=== PATIENT | female | born 1930 | race Caucasian/White ===

== ENCOUNTER 2019-05-07 22:57 | Inpatient (IN) ==
[2019-05-07] MEDS ORDERED: Amiodarone Premix 150 MG/100 ML BAG IVPB ONE ×2 (23:04→23:06)
[2019-05-07] MEDS ORDERED: Amiodarone Premix 360 MG/200 ML BAG IVC ONE (23:06)
[2019-05-07] MEDS ORDERED: *HR* FentaNYL (PF) 100 MCG/2 ML VIAL IVP ONE (23:25)
--- NOTE | 2019-05-07 23:25 | Emergency Department Note ---
Disposition Clinical Impression: Wide-complex tachycardia, Elevated troponin, Renal insufficiency Chest pain Qualifiers: Chest pain type: unspecified Qualified Code(s): R07.9 - Chest pain, unspecified Disposition: Admitted As Inpatient Condition: Fair Time of Disposition: 01:50 Arrhythmia/Palpitations HPI - General Stated Complaint: chest pain Time Seen by Provider: 05/07/19 23:05 Source: EMS Mode of arrival: EMS Limitations: age Nursing Notes Reviewed: Yes Vital Signs Reviewed: Yes - History of Present Illness HPI Narrative: 88-year-old female presents to the emergency department via EMS with reports of generalized pain. Patient is a poor historian and cannot provide additional history at this time. Her reports of EMS, patient's nephew called for squad as the patient was complaining of worsening pain or than usual that started today. No onset of time was reported. While in route EMS performed the EKG which appear to show atrial fibrillation as it was irregularly irregular and then a run of on sustained wide complex tachycardia. On arrival here the patient is crying in pain and cannot localize it. She states her neck hurts her chest hurts in her abdomen hurts. She denies any history of cardiac ischemic disease or irregular heart rhythms. She denies recent illness or shortness of breath. She states she does not take any anticoagulants other than Plavix. She has noted increase in swelling of her legs. Reportedly her nephew will be arriving shortly. - Related Data Home Medications Medication Instructions Recorded Confirmed Aspirin Enteric Coated [Aspirin EC] 81 mg PO DAILY 09/15/15 09/15/15 Calcium Carbonate/Vitamin D3 1 tab PO DAILY 09/15/15 09/15/15 [Calcium 600 + D Tablet] Clopidogrel Bisulfate [Clopidogrel] 75 mg PO QAM 09/15/15 09/15/15 Famotidine 20 mg PO BID 09/15/15 09/15/15 Furosemide 20 mg PO DAILY 09/15/15 09/15/15 Hydrocodone/Acetaminophen 1 tab PO TID 09/15/15 09/15/15 [Hydrocodone-Acetamin 5-325 mg] Levothyroxine [Synthroid] 125 mcg PO DAILY 09/15/15 09/15/15 Multivit-Min/FA/Lycopen/Lutein 1 tab PO DAILY 09/15/15 09/15/15 [Centrum Silver Tablet] Potassium Chloride 20 meq PO BID 09/15/15 09/15/15 Previous Rx's Medication Instructions Recorded Atorvastatin [Lipitor] 40 mg PO HS 30 Days tablet 09/18/15 Cephalexin [Keflex] 500 mg PO TID 10 Days capsule 09/18/15 Lisinopril [Zestril] 20 mg PO DAILY 30 Days tablet 09/18/15 Metoprolol XL (24 HR) Succ [Toprol 50 mg PO DAILY 30 Days tab.er.24h 09/18/15 XL] Hydrocodone/Acetaminophen [[place] 1 tab PO TID #30 tab 09/19/15 5-325 Tablet] Ondansetron ODT [Zofran ODT] 4 mg SL Q6HR PRN #15 tab.rapdis 01/20/18 Allergies Allergy/AdvReac Type Severity Reaction Status Date / Time tramadol Allergy Hives Verified 01/20/18 04:11 Limitations: ROS unobtainable due to patients medical condition Past Medical History - Past Medical History Source: old records reviewed, obtained from family Medical history: Reports: arthritis (Rheumatoid), coronary artery disease, hyp ertension, myocardial infarction Surgical history: Reports: angioplasty/stent, appendectomy, breast surgery, hysterectomy Psychiatric history: Reports: no psych history 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 Absent: full ROM (Limited range of motion) - Chest Chest inspection: Present: normal inspection, symmetric chest wall rise. Absent: tenderness - Respiratory Respiratory exam: Present: other (Diminished breath sounds but otherwise clear). Absent: respiratory distress - Cardiovascular Cardiovascular exam: Present: tachycardia, irregular rhythm, normal heart sounds - Expanded Cardiovascular Exam Peripheral pulses: 2+: radial (R), radial (L) - Abdominal Exam Abdominal exam: Present: soft, Non-Tender. Absent: tenderness, distention, guarding, rebound, rigidity - Extremities Exam Extremities exam: Present: tenderness, pedal edema (Bilateral, pitting). Absent: calf tenderness - Neurological Exam Neurological exam: Present: alert - Expanded Neurological Exam Patient oriented to: Present: person, place Motor strength - LUE: 5/5 Motor strength - RUE: 5/5 Motor strength - LLE: 5/5 Motor strength - RLE: 5/5 - Psychiatric Psychiatric exam: Present: normal affect, anxious - Skin Skin exam: Present: warm, dry, intact, pallor. Absent: rash, cyanosis, diaphoresis Course Course Narrative: During our evaluation she maintained a wide complex tachycardia as they were becoming more frequent, pulses were maintained throughout with a blood pressure systolic of 120/130. Our 1st initial EKG shows that he regularly irregular narrow complex rhythm insistent with atrial fibrillation. Then there was a run of not sustained wide complex tachycardia concerning for stable ventricular tachycardia versus possible aberrancy. Compared prior EKG shows sinus rhythm. At that time her QRS was narrow. Amiodarone bolus and drip were immediately ordered. Chest pain evaluation ordered including TSH. - Reevaluation(s) Reevaluation #1: Critical Troponin 0.15. Patient continues so report pain. Her nephews now at bedside and states she is normally always in pain but this appears worsen usual. He describes it as living in constant pain. States she has a history of rheumatoid arthritis. He believes she is had stents placed before. On medical record review it does appear that she has a history of paroxysmal atrial f ibrillation as well as coronary arterial disease with stent in the LAD. Her other labs are unremarkable. Chest x-ray shows a possible small pleural effusion. Otherwise no overt cardiac failure or pulmonary edema. We discussed code status, the nephew Stalin is the power of flight technician and wishes for the patient to be full code. We will plan for admission at this time. Time: 00:09 Reevaluation #2: Patient's vitals remained stable. When she is in a wide complex tachycardia her heart rate is regular at 128. Her vital signs continue to remain stable. The rest of her family is here and they state prior to EMS arriving they were attempting to give her nitroglycerin for the chest pain as she has it available at home. A dose was given here and she reports some improvement. We will perform a nitroglycerin trial in likely place her on a drip if needed as long as blood pressure is tolerable. She will require admission to the intensive care unit for further monitoring of this wide complex tachycardia that appears to be possible stable ventricular tachycardia or aberrancy. Family members are in agreement with this plan. - Consultations Consultation #1: Spoke with Dr. BASILIO, agree with Amiodarone given cardiac history after review of ECHO in 2018 with EF 60% and cardiac consultation note in 2015 of CAD, PAF, LAD stent. Patient not noted to be anticoagulated on medication list, patient reports only on Plavix. Dr. BASILIO states if need to may defibrillate as needed. Recommendation for [place] if no contraindication. Speaking with the patient she did endorse recent a rectal bleeding which she attributes to hemorrhoids. A stool hemoccult performed, negative. Time: 23:23 Consultation #2: Spoke with on-call hospitalist sussy Baker to admit to the intensive care unit for elevated troponin, wide complex tachycardia, chest pain and generalize pain. No further orders at this time Time: 01:49 Vital Signs Temperature 98.6 F 05/07/19 23:01 Pulse Rate 121 05/07/19 23:01 Respiratory Rate 22 05/07/19 23:01 Blood Pressure 126/84 05/07/19 23:01 O2 Sat by Pulse Oximetry 92 05/07/19 23:01 Temperature 98.6 F 05/07/19 23:01 Pulse Rate 106 05/08/19 02:35 Respiratory Rate 17 05/08/19 02:35 Blood Pressure 112/72 05/08/19 02:35 O2 Sat by Pulse Oximetry 93 05/08/19 02:35 Oxygen Delivery Oxygen Delivery Oximizer Arrhythmia/Palpitations - MDM Narrative Medical decision making narrative: Patient was discussed with my attending physician who agrees with ED management and final disposition. They independently evaluated the patient. Please refer to their attestation to this encounter for additional information. This note was generated by [employer] voice recognition software and as a result grammatical or spelling errors may occur using this program. - Medical Records Medical records reviewed: Yes I reviewed the patient's medical records. - Lab Data Lab results reviewed: Yes I reviewed the patient's lab results. Result diagrams: 05/07/19 23:33 05/07/19 23:33 Lab Results 05/07/19 05/07/19 05/07/19 Range/Units 23:33 23:33 23:33 WBC 9.6 (4.3-11.1) K/mcL RBC 3.57 L (3.82-4.97) M/mcL Hgb 11.9 (11.5-15.4) g/dL Hct 36.1 (35.3-44.9) % MCV 101.1 H (83.0-100.0) fL MCH 33.3 (28.0-33.3) pg MCHC 33.0 (31.6-35.5) g/dL RDW 14.6 H (11.5-14.5) % Plt Count 225 (140-400) K/mcL MPV 9.6 (9.4-12.4) fL Immature Gran % 0.4 (0-4) % Seg Neutrophils % 64.7 % Lymphocytes % 19.9 % Monocytes % 11.6 % Eosinophils % 2.9 % Basophils % 0.5 % Neutrophils # 6.2 (1.6-8.9) K/mcL Lymphocytes # 1.9 (0.6-4.6) K/mcL Monocytes # 1.1 (0.0-1.3) K/mcL Eosinophils # 0.3 (0.0-0.6) K/mcL Basophils # 0.1 (0.0-0.2) K/mcL PT 11.5 (9.4-12.1) Seconds INR 1.0 APTT 28.7 (26.0-36.0) Seconds Heparin Anti-Xa, Unfract 0.01 L (0.30-0.70) IU/mL Sodium 135 L (136-145) mEq/L Potassium 4.0 (3.5-5.1) mEq/L Chloride 98 (98-107) mEq/L Carbon Dioxide 27 (23-29) mEq/L BUN 71 H (8-23) mg/dL Creatinine 1.53 H (0.60-1.20) mg/dL Est GFR ( Amer) 39 L (> 60) Est GFR (Non-Af Amer) 32 L (> 60) BUN/Creatinine Ratio 46 H (6-26) Glucose 171 H (70-105) mg/dL Calculated Osmolality 305 H (280-300) Calcium 9.3 (8.6-10.3) mg/dL Troponin I 0.15 H* (< 0.04) ng/mL TSH 1.141 (0.340-5.600) mcIU/mL Stool Occult Bld Scrn (Negative) 05/07/19 Range/Units 23:45 WBC (4.3-11.1) K/mcL RBC (3.82-4.97) M/mcL Hgb (11.5-15.4) g/dL Hct (35.3-44.9) % MCV (83.0-100.0) fL MCH (28.0-33.3) pg MCHC (31.6-35.5) g/dL RDW (11.5-14.5) % Plt Count (140-400) K/mcL MPV (9.4-12.4) fL Immature Gran % (0-4) % Seg Neutrophils % % Lymphocytes % % Monocytes % % Eosinophils % % Basophils % % Neutrophils # (1.6-8.9) K/mcL Lymphocytes # (0.6-4.6) K/mcL Monocytes # (0.0-1.3) K/mcL Eosinophils # (0.0-0.6) K/mcL Basophils # (0.0-0.2) K/mcL PT (9.4-12.1) Seconds INR APTT (26.0-36.0) Seconds Heparin Anti-Xa, Unfract (0.30-0.70) IU/mL Sodium (136-145) mEq/L Potassium (3.5-5.1) mEq/L Chloride (98-107) mEq/L Carbon Dioxide (23-29) mEq/L BUN (8-23) mg/dL Creatinine (0.60-1.20) mg/dL Est GFR ( Amer) (> 60) Est GFR (Non-Af Amer) (> 60) BUN/Creatinine Ratio (6-26) Glucose (70-105) mg/dL Calculated Osmolality (280-300) Calcium (8.6-10.3) mg/dL Troponin I (< 0.04) ng/mL TSH (0.340-5.600) mcIU/mL Stool Occult Bld Scrn Negative (Negative) - Radiology Data Radiology results reviewed: Yes I reviewed the patient's radiology results. Chest X-Ray 05/07/19 23:06 IMPRESSION: Chronic interstitial lung disease with probable small right pleural effusion minimal right basilar atelectasis. D/ / Kian Clifford MD / Kian Clifford MD Interpreting Provider: Kian Clifford MD - EKG Data EKG attestation: Yes I reviewed and interpreted this EKG. EKG results narrative: EKG performed 2301 which appears to show atrial fibrillation with rapid ventricular response with transition into a wide complex tachycardia, QRS 151. Review of her prior EKG shows what appears to be sinus rhythm 61 beats per minute this was performed 11/24/2017. 2[place] [address] 05/08/2019 which shows wide complex tachycardia of 130 beats per minute
[2019-05-08 00:05] LABS: Basophils # 0.1 K/mcL (0.0-0.2); Basophils % 0.5 %; Eosinophils # 0.3 K/mcL (0.0-0.6); Eosinophils % 2.9 %; Hematocrit 36.1 % (35.3-44.9); Hemoglobin 11.9 g/dL (11.5-15.4); Immature Granulocytes % 0.4 % (0-4); Lymphocytes # 1.9 K/mcL (0.6-4.6); Lymphocytes % 19.9 %; Mean Corpuscular Hemoglobin 33.3 pg (28.0-33.3); Mean Corpuscular Volume 101.1 fL (83.0-100.0); Mean Platelet Volume 9.6 fL (9.4-12.4); Monocytes # 1.1 K/mcL (0.0-1.3); Monocytes % 11.6 %; Neutrophils # 6.2 K/mcL (1.6-8.9); Platelet Count 225 K/mcL (140-400); Red Blood Count 3.57 M/mcL (3.82-4.97); Red Cell Distribution Width 14.6 % (11.5-14.5); Segmented Neutrophils % 64.7 %; White Blood Count 9.6 K/mcL (4.3-11.1)
[2019-05-08 00:06] LABS: Calcium 9.3 mg/dL (8.6-10.3)
[2019-05-08 00:08] LABS: Prothrombin Time 11.5 Seconds (9.4-12.1)
[2019-05-08 00:10] LABS: Activated Partial Thrombo Time 28.7 Seconds (26.0-36.0)
[2019-05-08] MEDS ORDERED: Aspirin 325 MG TABLET PO ONE (00:10)
[2019-05-08 00:11] LABS: Troponin I 0.15 ng/mL (< 0.04)
[2019-05-08] MEDS ORDERED: *HR* Heparin 5,000 UNIT/ML VIAL IVP ONE (00:11)
[2019-05-08] MEDS ORDERED: *HR* Heparin 5,000 UNIT/ML VIAL IVP PRN ×2 (00:11)
[2019-05-08] MEDS ORDERED: Heparin 25,000 UNIT/250 ML D5W 25,000 UNIT/250 ML IV.SOLN IVC ONE (00:18)
[2019-05-08 00:19] LABS: Heparin anti-factor XA UFH 0.01 IU/mL (0.30-0.70)
[2019-05-08 00:24] LABS: Thyroid Stimulating Hormone 1.141 mcIU/mL (0.340-5.600)
[2019-05-08] MEDS: Heparin 25,000 UNIT/250 ML D5W 25,000 UNIT/250 ML IV.SOLN IVC SCH (00:26)
[2019-05-08] MEDS ORDERED: Nitroglycerin 0.4 MG TAB.SUBL SL ONE (00:33)
[2019-05-08] MEDS ORDERED: Nitroglycerin 0.4 MG TAB.SUBL SL SCH (00:45)
--- NOTE | 2019-05-08 01:04 | Emergency Department Note ---
Disposition Clinical Impression: Wide-complex tachycardia, Elevated troponin Chest pain Qualifiers: Chest pain type: unspecified Qualified Code(s): R07.9 - Chest pain, unspecified Disposition: Admitted As Inpatient Condition: Fair Time of Disposition: 02:30 General Adult HPI - General Chief complaint: ED Arrhythmia/Palpitations Stated complaint: chest pain Time Seen by Provider: 05/07/19 23:05 Limitations: age Nursing Notes Reviewed: Yes Vital Signs Reviewed: Yes - History of Present Illness Pain Scale: 7 - Related Data Home Medications Medication Instructions Recorded Confirmed Aspirin Enteric Coated [Aspirin EC] 81 mg PO DAILY 09/15/15 09/15/15 Calcium Carbonate/Vitamin D3 1 tab PO DAILY 09/15/15 09/15/15 [Calcium 600 + D Tablet] Clopidogrel Bisulfate [Clopidogrel] 75 mg PO QAM 09/15/15 09/15/15 Famotidine 20 mg PO BID 09/15/15 09/15/15 Furosemide 20 mg PO DAILY 09/15/15 09/15/15 Hydrocodone/Acetaminophen 1 tab PO TID 09/15/15 09/15/15 [Hydrocodone-Acetamin 5-325 mg] Levothyroxine [Synthroid] 125 mcg PO DAILY 09/15/15 09/15/15 Multivit-Min/FA/Lycopen/Lutein 1 tab PO DAILY 09/15/15 09/15/15 [Centrum Silver Tablet] Potassium Chloride 20 meq PO BID 09/15/15 09/15/15 Previous Rx's Medication Instructions Recorded Atorvastatin [Lipitor] 40 mg PO HS 30 Days tablet 09/18/15 Cephalexin [Keflex] 500 mg PO TID 10 Days capsule 09/18/15 Lisinopril [Zestril] 20 mg PO DAILY 30 Days tablet 09/18/15 Metoprolol XL (24 HR) Succ [Toprol 50 mg PO DAILY 30 Days tab.er.24h 09/18/15 XL] Hydrocodone/Acetaminophen [[place] 1 tab PO TID #30 tab 09/19/15 5-325 Tablet] Ondansetron ODT [Zofran ODT] 4 mg SL Q6HR PRN #15 tab.rapdis 01/20/18 Allergies Allergy/AdvReac Type Severity Reaction Status Date / Time tramadol Allergy Hives Verified 01/20/18 04:11 Past Medical History - Past Medical History Medical history: Reports: arthritis, coronary artery disease, hypertension, myocardial infarction Surgical history: Reports: angioplasty/stent, appendectomy, breast surgery, hysterectomy Psychiatric history: Reports: 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 - Social History Smoking Status: Never smoker Smokeless Tobacco Status: No Alcohol use: Reports: none Drug use: Reports: none Physical Exam - General Limitations: age General appearance: alert, anxious Course Vital Signs Temperature 98.6 F 05/07/19 23:01 Pulse Rate 121 05/07/19 23:01 Respiratory Rate 22 05/07/19 23:01 Blood Pressure 126/84 05/07/19 23:01 O2 Sat by Pulse Oximetry 92 05/07/19 23:01 Temperature 98.6 F 05/07/19 23:01 Pulse Rate 118 05/08/19 00:38 Respiratory Rate 18 05/08/19 01:11 Blood Pressure 107/75 05/08/19 01:11 O2 Sat by Pulse Oximetry 92 05/08/19 01:11 Oxygen Delivery Oxygen Delivery Oximizer Medical Decision Making - Medical Records Medical records reviewed: Yes I reviewed the patient's medical records. - Lab Data Lab results reviewed: Yes I reviewed the patient's lab results. Result diagrams: 05/07/19 23:33 05/07/19 23:33 Lab Results 05/07/19 05/07/19 05/07/19 Range/Units 23:33 23:33 23:33 WBC 9.6 (4.3-11.1) K/mcL RBC 3.57 L (3.82-4.97) M/mcL Hgb 11.9 (11.5-15.4) g/dL Hct 36.1 (35.3-44.9) % MCV 101.1 H (83.0-100.0) fL MCH 33.3 (28.0-33.3) pg MCHC 33.0 (31.6-35.5) g/dL RDW 14.6 H (11.5-14.5) % Plt Count 225 (140-400) K/mcL MPV 9.6 (9.4-12.4) fL Immature Gran % 0.4 (0-4) % Seg Neutrophils % 64.7 % Lymphocytes % 19.9 % Monocytes % 11.6 % Eosinophils % 2.9 % Basophils % 0.5 % Neutrophils # 6.2 (1.6-8.9) K/mcL Lymphocytes # 1.9 (0.6-4.6) K/mcL Monocytes # 1.1 (0.0-1.3) K/mcL Eosinophils # 0.3 (0.0-0.6) K/mcL Basophils # 0.1 (0.0-0.2) K/mcL PT 11.5 (9.4-12.1) Seconds INR 1.0 APTT 28.7 (26.0-36.0) Seconds Heparin Anti-Xa, Unfract 0.01 L (0.30-0.70) IU/mL Sodium 135 L (136-145) mEq/L Potassium 4.0 (3.5-5.1) mEq/L Chloride 98 (98-107) mEq/L Carbon Dioxide 27 (23-29) mEq/L BUN 71 H (8-23) mg/dL Creatinine 1.53 H (0.60-1.20) mg/dL Est GFR ( Amer) 39 L (> 60) Est GFR (Non-Af Amer) 32 L (> 60) BUN/Creatinine Ratio 46 H (6-26) Glucose 171 H (70-105) mg/dL Calculated Osmolality 305 H (280-300) Calcium 9.3 (8.6-10.3) mg/dL Troponin I 0.15 H* (< 0.04) ng/mL TSH 1.141 (0.340-5.600) mcIU/mL Stool Occult Bld Scrn (Negative) 05/07/19 Range/Units 23:45 WBC (4.3-11.1) K/mcL RBC (3.82-4.97) M/mcL Hgb (11.5-15.4) g/dL Hct (35.3-44.9) % MCV (83.0-100.0) fL MCH (28.0-33.3) pg MCHC (31.6-35.5) g/dL RDW (11.5-14.5) % Plt Count (140-400) K/mcL MPV (9.4-12.4) fL Immature Gran % (0-4) % Seg Neutrophils % % Lymphocytes % % Monocytes % % Eosinophils % % Basophils % % Neutrophils # (1.6-8.9) K/mcL Lymphocytes # (0.6-4.6) K/mcL Monocytes # (0.0-1.3) K/mcL Eosinophils # (0.0-0.6) K/mcL Basophils # (0.0-0.2) K/mcL PT (9.4-12.1) Seconds INR APTT (26.0-36.0) Seconds Heparin Anti-Xa, Unfract (0.30-0.70) IU/mL Sodium (136-145) mEq/L Potassium (3.5-5.1) mEq/L Chloride (98-107) mEq/L Carbon Dioxide (23-29) mEq/L BUN (8-23) mg/dL Creatinine (0.60-1.20) mg/dL Est GFR ( Amer) (> 60) Est GFR (Non-Af Amer) (> 60) BUN/Creatinine Ratio (6-26) Glucose (70-105) mg/dL Calculated Osmolality (280-300) Calcium (8.6-10.3) mg/dL Troponin I (< 0.04) ng/mL TSH (0.340-5.600) mcIU/mL Stool Occult Bld Scrn Negative (Negative) - Radiology Data Radiology results reviewed: Yes I reviewed the patient's radiology results. Chest X-Ray 05/07/19 23:06 IMPRESSION: Chronic interstitial lung disease with probable small right pleural effusion minimal right basilar atelectasis. D/ / Kian Clifford MD / Kian Clifford MD Interpreting Provider: Kian Clifford MD - EKG Data EKG #1 EKG attestation: Yes I reviewed and interpreted this EKG. EKG results narrative: EKG shows what appears to be atrial fibrillation with RVR which then converted to a wide complex tachycardia. Ventricular rate 136. Critical Care Time Critical Care Time: Yes Total Critical Care Time: 60 Attestation: Critical care performed: Time is exclusive of separately billable procedures. Time includes: direct patient care, patient reassessment, coordination of patient care, interpretation of data (laboratory data, radiology data, and respiratory data), review of patient's medical records, medical consultation and documentation of patient care. Procedures included in critical care time: Procedures excluded from critical care time: Attestation Statement - Attestation Attestation: I, Rivera Nicholson MD, personally evaluated this patient and discussed their management with the resident physician. I reviewed the resident's note and agree with the documented findings, medical decision making, and plan of care. I reviewed the residents documentation and agree with the residents assessment and plan of care. I have personally had face to face time with the patient. I personally supervised and was present for the boles/critical portions of the following procedures completed by the resident: EKG interpretation. 88-year-old female presents to the emergency department by EMS with a complaint of pain all over. EMS reports that she complained of having increased pain all day. They report however that he placed her on the monitor she appears to be going in and out of V. tach. Patient does complain of chest pain but she complains of pain all over. She is complaining frequently of pain in her neck. She has rheumatoid arthritis and her nephew reports that she lives and chronic pain all the time but is normally not this severe. Patient denies feeling short of breath but is very tachypneic. She is anxious. On arrival here the emergency department the patient is alert and oriented. She is complaining primarily of pain in her chest and neck. She also however states that she hurts all over. On examination patient is a well-developed elderly female in moderate distress. She is alert and oriented 3. There is no cyanosis or diaphoresis. Breath sounds are equal bilaterally. Heart is tachycardic and irregularly irregular. Abdomen is soft with no obvious tenderness. She denies chronic appearing edema of the lower extremities bilaterally. Chest x-ray shows chronic interstitial lung disease with probable small right pleural effusion, minimal right basilar atelectasis. EKG shows what appears to be atrial fibrillation with RVR which then converted to a wide complex tachycardia. Ventricular rate 136. Labs reviewed. Troponin 0.15. Patient was started on amiodarone bolus and infusion. She was also started on heparin infusion. She received sublingual nitroglycerin with improvement in her discomfort. The feather boner, Dr. Montenegro, was consulted and case discussed with him. He recommended placing the patient on heparin and admitting to ICU with the defibrillator pads in place. The hospitalist, Dr. Taylor, was consulted and accepted admission of the patient.
[2019-05-08] MEDS ORDERED: Morphine Sulfate 2 MG/ML SYRINGE IVP ONE (02:20)
--- NOTE | 2019-05-08 02:32 | Internal Med History&Physical ---
<Herlinda Salamanca M - Last Filed: 05/08/19 04:11> Date of Encounter: 05/08/19 Time of Encounter: 02:32 Internal Medicine - H&P: HPI Admitted From: Emergency Dept History of present illness: Ms. Tavera is a 88 year old female with history of CAD status post PCI in 2012, hypertension, hyperlipidemia, hypothyroidism, rheumatoid arthritis who presented to the emergency department with complaints of chest pain and diffuse body aches. The patient lives at home alone and has neighbors to stop by to help her with medications and he noticed that she continued to be in pain despite her normal pain medication regimen therefore EMS was contacted. In the emergency department the patient was found to be in atrial fibrillation with conversion to wide complex tachycardia, concerning for aberrancy vs ventricular tachycardia. The patient was given bolus of amiodarone and placed on amiodarone drip. In consultation with cardiology the patient was also given aspirin 325 mg as well as started on heparin and nitroglycerin drip. The patient continued to complain of diffuse pain and was therefore given morphine as well as fentanyl. Chest x- ray shows chronic interstitial lung disease with probable small right pleural effusion with minimal right basilar atelectasis. Laboratory evaluation shows no significant leukocytosis, anemia or thrombocytopenia. The patient has elevated creatinine up to 1.53, up from previous 1.26 on 04/18/19. She otherwise has elevated troponin of 0.15. She is now requiring 10L oxymask to maintain 90% saturation. The patient's nephew is present and states he is the power of regulatory attorney and the patient states she is full code and family agrees. Past Med Surg Social Fam HX - Past Medical History Medical history: arthritis, coronary artery disease, hypertension, myocardial infarction Psychiatric history: no psych history - Past Surgical History Surgical History: angioplasty/stent, appendectomy, breast surgery, hysterectomy Additional surgical history: CARDIAC STENT - Social History Smoking Status: Never smoker Smokeless Tobacco Status: No Alcohol use: none Drug use: none - Family History Mother Hx Family Cardiac Disorders: Yes (Heart disorder) Internal Medicine - H&P: Meds Aspirin Enteric Coated [Aspirin EC] 81 mg PO DAILY 09/15/15 [History] Calcium Carbonate/Vitamin D3 [Calcium 600 + D Tablet] 1 tab PO DAILY 09/15/15 [History] Clopidogrel Bisulfate [Clopidogrel] 75 mg PO QAM 09/15/15 [History] Famotidine 20 mg PO BID 09/15/15 [History] Furosemide 20 mg PO DAILY 09/15/15 [History] Hydrocodone/Acetaminophen [Hydrocodone-Acetamin 5-325 mg] 1 tab PO TID 09/15/15 [History] Levothyroxine [Synthroid] 125 mcg PO DAILY 09/15/15 [History] Multivit-Min/FA/Lycopen/Lutein [Centrum Silver Tablet] 1 tab PO DAILY 09/15/15 [History] Potassium Chloride 20 meq PO BID 09/15/15 [History] Atorvastatin [Lipitor] 40 mg PO HS 30 Days tablet 09/18/15 [Rx] Cephalexin [Keflex] 500 mg PO TID 10 Days capsule 09/18/15 [Rx] Lisinopril [Zestril] 20 mg PO DAILY 30 Days tablet 09/18/15 [Rx] Metoprolol XL (24 HR) Succ [Toprol XL] 50 mg PO DAILY 30 Days tab.er.24h [Rx] Hydrocodone/Acetaminophen [[place] 5-325 Tablet] 1 tab PO TID #30 tab 09/19/15 [Rx] Ondansetron ODT [Zofran ODT] 4 mg SL Q6HR PRN #15 tab.rapdis 01/20/18 [Rx] Allergy/AdvReac Type Severity Reaction Status Date / Time tramadol Allergy Hives Verified 01/20/18 04:11 All Systems PM: A 10-system review of systems was performed and is negative for pertinent findings except as documented above in the HPI. - Constitutional Constitutional: no chills, no fever(s) - Cardiovascular Cardiovascular ROS IM: chest pain, dyspnea, irregular heart rhythm, no edema - Respiratory Respiratory: cough, dyspnea - Gastrointestinal Gastrointestinal: bloating, no cramping, no nausea, no vomiting - Genitourinary Genitourinary: no difficulty urinating, no dysuria, no hematuria - Musculoskeletal Musculoskeletal ROS IM: arthralgias, back pain, neck pain - Integumentary Integumentary IM: no erythema, no rash - Neurological Neurological ROS: no confusion, no dizziness, no tingling - Psychiatric Psychiatric: no anxiety, no depression - Constitutional Vitals: Temp Pulse Resp BP Pulse Ox 98.6 F 118 18 107/75 92 05/07/19 23:01 05/08/19 00:38 05/08/19 01:11 05/08/19 01:11 05/08/19 01:11 General appearance: Present: mild distress, A&O X 3 Exam: General: Conversant. Appears in mild discomfort. Follow commands. Appears stated age. Appears ill. Neck: No JVD. Trachea midline. Neck supple. Eyes: PERRL. No scleral icterus. HENT: Normocephalic and atraumatic. Moist mucus membranes. Cardiovascular: Irregularly irregular and tachycardic. Intermittent but frequent episodes of wide complex tachycardia noted on monitor Normal S1 and S2. No murmurs appreciated. Normal capillary refill. Extremities well perfused with 2+ distal pulses bilaterally. 2+ pedal edema bilaterally, wearing compression sockings. Pulmonary: decreased but equal breath sounds bilaterally, anteriorly and posteriorly. No wheezes, rales, or rhonchi. Satting 90% on 10L oxymask. Speaks in full sentences. Abdomen: Soft, nondistended, and tontender. No bruits or masses. No guarding. Neuro: Alert and oriented x3. No slurred speech. No focal deficits noted. Skin: No rashes noted on visualized skin. Musculoskeletal: No bony abnormalities visualized. Moves all extremities. Psych: Normal mood. Pleasant. Makes appropriate eye contact. Internal Med - H&P Results - Labs CBC & Chem 7: 05/08/19 03:50 05/07/19 23:33 Labs: Short CBC 05/07/19 Range/Units 23:33 WBC 9.6 (4.3-11.1) K/mcL Hgb 11.9 (11.5-15.4) g/dL Hct 36.1 (35.3-44.9) % Plt Count 225 (140-400) K/mcL Neutrophils # 6.2 (1.6-8.9) K/mcL BMP 05/07/19 23:33 Sodium 135 L Potassium 4.0 Chloride 98 Carbon Dioxide 27 BUN 71 H Creatinine 1.53 H Glucose 171 H Calcium 9.3 Cardiac Enzymes 05/07/19 Range/Units 23:33 Troponin I 0.15 H* (< 0.04) ng/mL - Impressions ITS Impressions Chest X-Ray 05/07/19 23:06 IMPRESSION: Chronic interstitial lung disease with probable small right pleural effusion minimal right basilar atelectasis. D/ / Kian Clifford MD / Kian Clifford MD Interpreting Provider: Kian Clifford MD - Assessment and Plan (1) Wide-complex tachycardia Current Visit: Yes Status: Acute Assessment and plan: * Patient has a history of paroxysmal AF, Holter monitor Nov 2018: Baseline sinus rhythm with blunt circadian variation, rate averaging 63. Occasional PVCs (1.4%). Rare PACs (0.7%). Rare nonsustained SVT, likely PAT (5 runs, longest 12 beats/5 seconds) * Echo 12/2017: EF 60-65%, Mod LV hypertrophy, Mod LV diastolic dysfunction, mild-mod AR, Mild MR/TR and severe pulmonary HTN * Patient initiated on amiodarone with bolus and drip started in consultation with currency counter, Dr. Montenegro * Concern for aberrancy vs ventricular tachycardia which sustained in ED * Unsure of etiology, concern for PE given new hypoxia and tachycardia but more likely to be ischemic heart disease given history, unable to perform CTA now given ANA MARÍA but to be considered * Will continue to monitor in ICU, synchronized cardioversion advised if she becomes unstable * Nitroglycerin drip for chest pain with oral analgesic supplementation * Continue amio drip * Continue heparin drip * Full code per patient and family * NPO pending possible procedure (2) NSTEMI (non-ST elevated myocardial infarction) Current Visit: Yes Status: Acute Assessment and plan: * Patient does have elevated troponin up to 0.15, will trend q4h * There is concern for ischemic origin of the patients pain and arrhythmia * Will send for BNP to eval for strain, does not appear to be fluid overloaded on CXR * Echo in the am (3) CAD (coronary artery disease) Current Visit: No Status: Chronic Assessment and plan: * Left heart catheterization 01/27/2011: Left main normal. LAD proximal/mid 70% stenosis ([place] placed). D1 30-40% stenosis. Circumflex normal. RCA normal. * Patient offered LHC in 2019 secondary to angina but preferred to continue with medical management * Cardiology to evaluate to determine candidacy given new arrhythmia Qualifiers: Coronary Disease-Associated Artery/Lesion type: [place] artery [place] vs. transplanted heart: [place] heart Associated angina: with unstable angina Qualified Code(s): I25.110 - Atherosclerotic heart disease of [place] coronary artery with unstable angina pectoris (4) PAF (paroxysmal atrial fibrillation) Current Visit: Yes Status: Acute Assessment and plan: * Previously noted and followed by currency counter * She has previously declined anticoagulation and preferred medical management (5) Acute respiratory failure with hypoxia Current Visit: Yes Status: Acute Assessment and plan: * Patient now requiring 10L oxymask * Unsure of etiology and would evaluate with CTA for PE but ANA MARÍA prohibits significant contrast bolus * On heparin drip * Will continue to monitor (6) Acute kidney injury Current Visit: Yes Status: Acute Assessment and plan: * Creatnine elevated to 1.53, appears to have increased since 04/18 when it was 1.26 * Will monitor urinary output * BMP repeat in AM (7) DVT prophylaxis Current Visit: Yes Status: Acute Assessment and plan: * Continues on heparin drip - Time Spent With Patient Total time spent is greater than 50% in coordination of care (as documented) at patient's floor/unit and/or counseling patient: <Kelin Taylor - Last Filed: 05/08/19 04:32> Date of Encounter: 05/08/19 Internal Medicine - H&P: HPI Chief complaint: chest pain Plans for Post Hospital Care: Home All Systems PM: A 10-system review of systems was performed and is negative for pertinent findings except as documented above in the HPI. - Constitutional Vitals: Temp Pulse Resp BP Pulse Ox 98.6 F 118 18 107/75 92 05/07/19 23:01 05/08/19 00:38 05/08/19 01:11 05/08/19 01:11 05/08/19 01:11 Internal Med - H&P Results - Labs CBC & Chem 7: 05/08/19 03:50 05/08/19 03:50 Labs: Short CBC 05/07/19 Range/Units 23:33 WBC 9.6 (4.3-11.1) K/mcL Hgb 11.9 (11.5-15.4) g/dL Hct 36.1 (35.3-44.9) % Plt Count 225 (140-400) K/mcL Neutrophils # 6.2 (1.6-8.9) K/mcL BMP 05/07/19 23:33 Sodium 135 L Potassium 4.0 Chloride 98 Carbon Dioxide 27 BUN 71 H Creatinine 1.53 H Glucose 171 H Calcium 9.3 Cardiac Enzymes 05/07/19 Range/Units 23:33 Troponin I 0.15 H* (< 0.04) ng/mL - Impressions ITS Impressions Chest X-Ray 05/07/19 23:06 IMPRESSION: Chronic interstitial lung disease with probable small right pleural effusion minimal right basilar atelectasis. D/ / Kian Clifford MD / Kian Clifford MD Interpreting Provider: Kian Clifford MD - Time Spent With Patient Total time spent is greater than 50% in coordination of care (as documented) at patient's floor/unit and/or counseling patient: - Attending Attestation I performed a history and physical exam of the patient and discussed management with the resident. I reviewed the resident's note and agree with the documented findings and plan of care. Arlin Tavera is an 88 year old woman with rheumatoid arthritis, hypertension and coronary artery disease who lives alone and was noted in be in distress by neighbors, alerting her family members. They noted her to be in severe pain diffusely but predominantly in her chest. EMS was called and upon arrival here was noted to be in atrial fibrillation that subsequently changed to ventricular tachycardia that later became sustained. She was given nitroglycerin tablets and later switched over to a drip due to ongoing pain. She also received some fentanyl. She has also been placed on heparin and amiodarone drips after consultation with cardiology. On my assessment she is in notable pain, clenching her chest, with pale fragile skin. She has 2-3+ peripheral edema. Will admit to ICU for sustained V-tach vs Afib with aberrancy. There is concern for underlying ischemic disease given her prior history. Another differential includes pulmonary embolism given her new hypoxic state however we will hold on CTA for now given her suspected acute kidney injury. Her prognosis is guarded given her elderly fragile state and upon discussion with family members she will remain full code for now. The patient herself expressed understanding of this and what it entails. Cardiology consulta tion is requested. Will get an echo in the morning. CCT 55 mins. GABRIELLA ANTHONY.
[2019-05-08] MEDS: Nitroglycerin 25 MG/250 ML INFUS..BTL IVC SCH ×2 (02:33→07:22)
[2019-05-08] MEDS ORDERED: Naloxone 0.4 MG/ML INJ IVP PRN (02:35)
[2019-05-08] MEDS ORDERED: Amiodarone Premix 360 MG/200 ML BAG IVC ONE (03:21)
[2019-05-08] MEDS ORDERED: *HR* FentaNYL PATCH 25 MCG PATCH TD SCH (04:00)
[2019-05-08 04:06] LABS: Basophils % 0.2 %; Eosinophils % 0.1 %; Hematocrit 35.3 % (35.3-44.9); Hemoglobin 11.7 g/dL (11.5-15.4); Immature Granulocytes % 0.4 % (0-4); Mean Corpuscular HGB Conc 33.1 g/dL (31.6-35.5); Mean Corpuscular Volume 99.4 fL (83.0-100.0); Mean Platelet Volume 9.3 fL (9.4-12.4); Monocytes # 1.2 K/mcL (0.0-1.3); Monocytes % 10.7 %; Neutrophils # 9.1 K/mcL (1.6-8.9); Platelet Count 199 K/mcL (140-400); Red Blood Count 3.55 M/mcL (3.82-4.97); Red Cell Distribution Width 14.6 % (11.5-14.5); Segmented Neutrophils % 79.6 %; White Blood Count 11.4 K/mcL (4.3-11.1)
[2019-05-08 04:13] LABS: INR 1.2; Prothrombin Time 13.6 Seconds (9.4-12.1)
[2019-05-08 04:25] LABS: Calcium 9.3 mg/dL (8.6-10.3); Magnesium 2.1 mg/dL (1.6-2.6); Phosphorous 3.9 mg/dL (2.7-4.5); Potassium 3.4 mEq/L (3.5-5.1)
[2019-05-08] MEDS ORDERED: Furosemide 20 MG/2 ML VIAL IVP ONE (04:30)
[2019-05-08] MEDS: Amiodarone Premix 360 MG/200 ML BAG IVC SCH ×2 (04:52→16:38)
[2019-05-08] MEDS: Nitroglycerin 0.4 MG TAB.SUBL SL PRN ×2 (05:25→06:18)
[2019-05-08] MEDS ORDERED: Amiodarone Premix 150 MG/100 ML BAG IVPB ONE ×2 (05:39→06:36)
--- NOTE | 2019-05-08 06:19 | Event Note ---
Date of Encounter: 05/08/19 Time of Encounter: 05:45 0545: Called to the patient's bedside secondary to more frequent runs of wide-complex tachycardia. Assessed the patient at bedside. Blood pressure appears stable, systolic in the 120s. The patient is talkative but does continue to complain of chest pain for which she continues on nitroglycerin. She also continues on heparin drip. The patient has evidence of persistent runs of wide- complex tachycardia on the monitor. 12-lead completed which shows diffuse wide- complex tachycardia which is similar to that previously seen in the emergency department. She does not lose pulses during these episodes but does pause her speech and is able to recover afterwards. We discussed with family on the phone as the patient does not appear to fully comprehend her critical situation and they request to keep her full code at this time, understanding that she is at high risk for further arrhythmias which may require cardioversion, CPR, and intubation. We have re-bolused with amiodarone as she has been on 6 hour drip and is now at 0.5mg/min. I sent the EKG and discussed the patient's current status with cadiologist, Dr. Montenegro who agrees with current plan and makes no further recommendations at this time. Approximately 5 minutes following amio bolus her EKG shows improvement in frequency of wide complexes. We will ensure there is stat echo performed. She will continue to require close monitoring in the intensive care unit and critical care medicine will be consulted.
--- NOTE | 2019-05-08 06:37 | Pulmonology Consult Note ---
<Herve Shine W - Last Filed: 05/08/19 08:12> Date of Encounter: 05/08/19 Medications and Allergies Aspirin Enteric Coated [Aspirin EC] 81 mg PO DAILY 09/15/15 [History] Calcium Carbonate/Vitamin D3 [Calcium 600 + D Tablet] 1 tab PO DAILY 09/15/15 [History] Clopidogrel Bisulfate [Clopidogrel] 75 mg PO QAM 09/15/15 [History] Famotidine 20 mg PO BID 09/15/15 [History] Furosemide 20 mg PO DAILY 09/15/15 [History] Hydrocodone/Acetaminophen [Hydrocodone-Acetamin 5-325 mg] 1 tab PO TID 09/15/15 [History] Levothyroxine [Synthroid] 125 mcg PO DAILY 09/15/15 [History] Multivit-Min/FA/Lycopen/Lutein [Centrum Silver Tablet] 1 tab PO DAILY 09/15/15 [History] Potassium Chloride 20 meq PO BID 09/15/15 [History] Atorvastatin [Lipitor] 40 mg PO HS 30 Days tablet 09/18/15 [Rx] Cephalexin [Keflex] 500 mg PO TID 10 Days capsule 09/18/15 [Rx] Lisinopril [Zestril] 20 mg PO DAILY 30 Days tablet 09/18/15 [Rx] Metoprolol XL (24 HR) Succ [Toprol XL] 50 mg PO DAILY 30 Days tab.er.24h 09/18/15 [Rx] Hydrocodone/Acetaminophen [[place] 5-325 Tablet] 1 tab PO TID #30 tab 09/19/15 [Rx] Ondansetron ODT [Zofran ODT] 4 mg SL Q6HR PRN #15 tab.rapdis 01/20/18 [Rx] Allergy/AdvReac Type Severity Reaction Status Date / Time tramadol Allergy Hives Verified 01/20/18 04:11 All Systems: The remainder of the systems were reviewed and are negative Physical Examination Vital Signs: Vital Signs, Last 4 Hours Pulse Resp BP Pulse Ox 05/08/19 07:15 16 112/77 92 05/08/19 06:20 93 22 114/74 90 05/08/19 06:00 90 20 103/69 88 05/08/19 05:00 103 26 122/78 92 Results - Laboratory Findings CBC and BMP: 05/08/19 03:50 05/08/19 03:50 PT/INR, D-dimer PT 13.6 Seconds (9.4-12.1) H 05/08/19 03:50 Abnormal lab findings: Abnormal lab results WBC 11.4 K/mcL (4.3-11.1) H 05/08/19 03:50 RBC 3.55 M/mcL (3.82-4.97) L 05/08/19 03:50 MCV 101.1 fL (83.0-100.0) H 05/07/19 23:33 RDW 14.6 % (11.5-14.5) H 05/08/19 03:50 MPV 9.3 fL (9.4-12.4) L 05/08/19 03:50 Neutrophils # 9.1 K/mcL (1.6-8.9) H 05/08/19 03:50 PT 13.6 Seconds (9.4-12.1) H 05/08/19 03:50 Heparin Anti-Xa, Unfract 0.95 IU/mL (0.30-0.70) H 05/08/19 06:19 Sodium 135 mEq/L (136-145) L 05/07/19 23:33 Potassium 3.4 mEq/L (3.5-5.1) L 05/08/19 03:50 BUN 67 mg/dL (8-23) H 05/08/19 03:50 Creatinine 1.44 mg/dL (0.60-1.20) H 05/08/19 03:50 Est GFR ( Amer) 42 (> 60) L 05/08/19 03:50 Est GFR (Non-Af Amer) 35 (> 60) L 05/08/19 03:50 BUN/Creatinine Ratio 47 (6-26) H 05/08/19 03:50 Glucose 171 mg/dL (70-105) H 05/08/19 03:50 POC Glucose 168 mg/dL (70-99) H 05/08/19 06:40 Calculated Osmolality 307 (280-300) H 05/08/19 03:50 Troponin I 0.15 ng/mL (< 0.04) H* 05/08/19 06:19 B-Natriuretic Peptide 955 pg/mL (Less than 100) H 05/08/19 03:50 - Clinical Findings Intake & Output: Intake & Output 05/07/19 05/08/19 05/08/19 23:59 07:59 15:59 Intake Total 100 / 100 500 / 500 Balance 100 / 100 500 / 500 Weight 88.904 kg 83.9 kg Consult Discharge Plan - Plan Referrals: NONE,PCP [Primary Care Provider] - - Attending Attestation I examined this patient and my medical decision-making was reviewed with the Resident Physician. I agree with the documented findings, disposition and treatment plan as described except to the extent set forth below. We independently had [id number] contact with the patient I spent 33min of Critical Care time with this patient. It involved decision making of high complexity to assess, manipulate, and support vital organ system failure and/or to prevent further life threatening deterioration of the patient's condition. The time involved in the performance of separately reportable procedures was not counted toward critical care time. Patient seen and examined at bedside Labs, radiology, chart personally reviewed. Management was reviewed during multidisciplinary critical care rounds. ALTERATION HAND: Still has significant chronic pain from osteoarthritis will need to augment analgesic regimen without depressing ALTERATION HAND Pulm: Acute hypoxic respiratory failure secondary to CHF she will require BiPAP and hopefully will respond to diuretic high risk for further decompensation requiring endotracheal intubation Cards: Acutely decompensated heart failure with preserved ejection fraction complicated by non-STEMI and the potentially fatal ventricular arrhythmia gabriel reciate cardiology recommendations plan for management of heart failure continue amiodarone will add beta sujey when she is able to tolerate and continue ACS protocol she is not a candidate for CHELE inhibitor because of the kidney injury and she will need preload and afterload reduction acutely continue diuretic as tolerated by blood pressure. Stat echocardiogram ordered GI: Continue to monitor Nutrition: Nothing by mouth for now Renal: Acute kidney injury likely secondary to heart failure urine UOP Monitored, Cont to Trend sCr and monitor Electrolytes. ID: Leukocytosis likely reactionary but will culture patient as she is at high risk for infection also send pro-calcitonin low threshold for initiation of antimicrobials Heme/Onc: She is on heparin infusion for ACS continue to monitor H&H and platelets Endo: Glucose Monitored Integ/MSK: Skin Care per routine ICU Nursing Protocol to prevent ulcers. Lines: All lines examined without evidence of infection : Dispo: Monitor in ICU for higher risk of decompensation CODE: Full prognosis guarded based upon age and severity of presentation of illness we will discuss with patient and POA regarding CODE STATUS at this time they have elected "to give full CPR 1 chance" we will further clarify the exact limitations of this phrase. <Lor Armenta R - Last Filed: 05/08/19 08:45> Date of Encounter: 05/08/19 Time of Encounter: 06:37 Assessment and Plan (1) Acute respiratory failure with hypoxia Current Visit: Yes Status: Acute Patient was signs of overt heart failure on chest x-ray and with edema bilateral lower extremities Patient satting 89-90% on room air Placed on BiPAP, Lasix initiated and nitro drip will be started Stat echo pending We will look for additional sources of possible infection by drawing cultures, lactic acid and procalcitonin (2) Acute decompensated heart failure Current Visit: Yes Status: Acute Chest x-ray shows cardiomegaly with evidence of pulmonary vascular congestion Stat echo ordered and pending Cardiology following Possibly secondary to infectious etiology versus NSTEMI Plan as above (3) NSTEMI (non-ST elevated myocardial infarction) Current Visit: Yes Status: Acute Elevated troponin 3 of 0.15 Likely secondary to ventricular tachycardia and new heart failure Patient on heparin GTT Cardiology following Plan as above (4) Ventricular arrhythmia Current Visit: Yes Status: Acute Patient has had runs of wide complex tachycardia Given 300 mg amiodarone bolus and then started on amiodarone drip Had another run of wide-complex tachycardia and was given another 150 mg amiodarone Cardiology following We will continue to monitor (5) Goals of care, counseling/discussion Current Visit: Yes Status: Acute Patient's nephew is her power of underwriting clerks supervisor We will consult palliative for further discussion of also of care Patient states the plan is to "do one round of CPR and if I do not make it then it is okay to stop" (6) DVT prophylaxis Current Visit: Yes Status: Acute Heparin ggt History of Present Illness Consult date: 05/08/19 Requesting physician: Kelin Taylor Reason for consult: other History of present illness: Patient is a an 88-year-old female with past medical history of rheumatoid arthritis, coronary artery disease and hypertension who presented to the emergency department for worsening of her chronic pain. Patient stated that she was in "pain all over" and it was worse than her baseline rheumatoid arthritis pain. Her son called EMS and brought her into the emergency Department but in route they noticed that she was in atrial fibrillation with intermittent wide- complex tachycardia. She was diagnosed with potential ventricular tachycardia in the emergency room and was given 300 mg of amiodarone and then started on the amiodarone drip. She was also given 2 doses of nitroglycerin and a nitroglycerin drip was ordered. The ventricular tachycardia corrected after administration of the amiodarone until early this morning when she had another 20 second run of ventricular tachycardia where an additional 150 mg of amiodarone was bolused. Chest x-ray from the emergency department shows pulmonary vascular congestion and overall points towards a heart failure picture. The patient's BNP was elevated at 955. She has had 3 positive tropo nins, all at 0.15. Stat echo is ordered and pending and cardiology will be following. The patient does have a history of an LAD stent which was placed several years ago. Patient is on a heparin drip currently for an STEMI. She denies recent upper respiratory tract infectious symptoms, nausea and vomiting, diarrhea. Her nephew is her power of underwriting clerks supervisor and at this point she wishes to remain full code. Past Med Surg Social Fam HX - Past Medical History Medical history: arthritis, coronary artery disease, hypertension, myocardial infarction Psychiatric history: no psych history - Past Surgical History Surgical History: angioplasty/stent, appendectomy, breast surgery, hysterectomy Additional surgical history: CARDIAC STENT - Social History Smoking Status: Never smoker Smokeless Tobacco Status: No Alcohol use: none Drug use: none - Family History Mother Hx Family Cardiac Disorders: Yes (Heart disorder) All Systems: The remainder of the systems were reviewed and are negative - Constitutional Constitutional: no fatigue, no fever(s) - EENT Nose, mouth and throat: no dizziness, no vertigo - Cardiovascular Cardiovascular: chest pain, edema, no dyspnea, no dyspnea on exertion - Respiratory Respiratory: no cough, no dyspnea, no hemoptysis - Gastrointestinal Gastrointestinal: no abdominal pain, no diarrhea, no nausea, no vomiting - Genitourinary Genitourinary: no dysuria, no hematuria - Musculoskeletal Musculoskeletal: joint pain, back pain, joint swelling - Neurological Neurological: no dizziness, no vertigo Physical Examination Vital Signs: Vital Signs, Last 4 Hours Temp Pulse Resp BP Pulse Ox 05/08/19 06:20 93 22 114/74 90 05/08/19 06:00 90 20 103/69 88 05/08/19 05:00 103 26 122/78 92 05/08/19 04:00 101 18 119/78 93 05/08/19 03:30 114 21 107/72 92 05/08/19 03:00 97.6 F 101 20 116/64 90 General appearance: no acute distress, alert Eyes: nonicteric Effort: normal Auscultation: bilateral: rales Cardiovascular: regular rate and rhythm Gastrointestinal: soft, non-tender Integumentary: other (chronic venous stasis changes of bilateral LE) Extremities: edema (2+ pitting edema of bilateral lower extremities) normal mental status, non-focal exam, pupils equal and round mood appropriate, affect normal Results - Laboratory Findings CBC and BMP: 05/08/19 03:50 05/08/19 03:50 PT/INR, D-dimer PT 13.6 Seconds (9.4-12.1) H 05/08/19 03:50 Abnormal lab findings: Abnormal lab results WBC 11.4 K/mcL (4.3-11.1) H 05/08/19 03:50 RBC 3.55 M/mcL (3.82-4.97) L 05/08/19 03:50 MCV 101.1 fL (83.0-100.0) H 05/07/19 23:33 RDW 14.6 % (11.5-14.5) H 05/08/19 03:50 MPV 9.3 fL (9.4-12.4) L 05/08/19 03:50 Neutrophils # 9.1 K/mcL (1.6-8.9) H 05/08/19 03:50 PT 13.6 Seconds (9.4-12.1) H 05/08/19 03:50 Heparin Anti-Xa, Unfract 0.01 IU/mL (0.30-0.70) L 05/07/19 23:33 Sodium 135 mEq/L (136-145) L 05/07/19 23:33 Potassium 3.4 mEq/L (3.5-5.1) L 05/08/19 03:50 BUN 67 mg/dL (8-23) H 05/08/19 03:50 Creatinine 1.44 mg/dL (0.60-1.20) H 05/08/19 03:50 Est GFR ( Amer) 42 (> 60) L 05/08/19 03:50 Est GFR (Non-Af Amer) 35 (> 60) L 05/08/19 03:50 BUN/Creatinine Ratio 47 (6-26) H 05/08/19 03:50 Glucose 171 mg/dL (70-105) H 05/08/19 03:50 POC Glucose 165 mg/dL (70-99) H 05/08/19 02:48 Calculated Osmolality 307 (280-300) H 05/08/19 03:50 Troponin I 0.15 ng/mL (< 0.04) H* 05/08/19 03:50 B-Natriuretic Peptide 955 pg/mL (Less than 100) H 05/08/19 03:50 - Clinical Findings Intake & Output: Intake & Output 05/07/19 05/07/19 05/08/19 15:59 23:59 07:59 Intake Total 100 / 100 400 / 400 Balance 100 / 100 400 / 400 Weight 88.904 kg 83.9 kg
[2019-05-08] MEDS ORDERED: Furosemide 40 MG/4 ML VIAL IVP ONE (07:06)
--- NOTE | 2019-05-08 08:04 | Cardiology Consult Note ---
Date of Encounter: 05/08/19 Time of Encounter: 08:00 Assessment and Plan (1) Troponin level elevated Current Visit: Yes Status: Acute Possible demand ischemia versus secondary to congestive heart failure with a prior event weeks ago. Currently on IV heparin and aspirin. Echocardiogram pending previous echo showed preserved ejection fraction with severe pulmonary hypertension and no major valvular abnormalities. Currently not a candidate to proceed to the cardiac catheter lab due to orthopnea and difficulty breathing setting 88% on 10 L nonrebreather mask. We will start BiPAP to help breathing status along with Nitropatch. Continue gentle diuresis, strict ins and outs (2) PAF (paroxysmal atrial fibrillation) Current Visit: Yes Status: Acute On IV amiodarone at the current time at a rate of 100 bpm with intermittent wide complex tachycardia (3) Wide-complex tachycardia Current Visit: Yes Status: Acute Possible ventricular tachycardia due to underlying ischemia. Upon review of previous EKGs patient does seem to have ectopy with similar pattern right bundle-branch like. Stable VT with no hemodynamic compromise and asymptomatic (4) Acute respiratory failure with hypoxia Current Visit: Yes Status: Acute Current orthopnea has been progressive over the last few weeks as per patient with a cough starting approximately one week ago. She also notices significant swelling in both lower extremities likely secondary to CHF however in the setting of elevating white blood count and left shift we will repeat chest x-ray and defer to pulmonary critical care to rule out an infectious process. Discussion w patient/family: The assessment and plan as outlined above was discussed with the patient and/or family members who expressed understanding and agreement. All questions were answered. Thank you for involving us in the care of your patient. Please call with any questions. History of Present Illness Consult date: 05/08/19 Consult reason: Respiratory insufficiency and Chest pain Chief complaint: Cant breath and swelling in my legs History of present illness: Ms. Tavera is a 88 year old female with history of multiple cardiac risk factors and coronary artery disease status post-PCI to her LAD in 2009. She has been having on and off chest pain over the last few months but has decided in the past to continue medical management only. Currently she has lower extremity edema and is short of breath and orthopneic currently on 10 L with a sats between 88-90%. Patient also has elevated troponins of 0.15 and 0.15 with a BNP of 1000. There is a mild elevation her white blood count with a cough which has been ongoing over the last week nonproductive with no fevers or chills. Patient also had a wide QRS complex possible aberrant A. fib versus runs of nonsustained ventricular tachycardia. These runs are stable and the patient is asymptomatic and hemodynamically intact with. Patient has been started on amiodarone to the emergency department and will be started on nitroglycerin if her blood pressure tolerates. Currently she is not a candidate proceed to the catheter lab due to orthopnea and inability to lay flat. I also do believe that likely the patient has had an event weeks ago and currently is in the stage of heart failure. Her last echocardiogram shows a preserved ejection fraction of 60% however she does have severe pulmonary hypertension. This may or may not be a culprit for her lower extremity edema. An echocardiogram will be obtained and currently is pending Past Med Surg Social Fam HX - Past Medical History Medical history: arthritis, coronary artery disease, hypertension, myocardial infarction Psychiatric history: no psych history - Past Surgical History Surgical History: angioplasty/stent, appendectomy, breast surgery, hysterectomy Additional surgical history: CARDIAC STENT - Social History Smoking Status: Never smoker Smokeless Tobacco Status: No Alcohol use: none Drug use: none - Family History Mother Hx Family Cardiac Disorders: Yes (Heart disorder) Medications and Allergies Aspirin Enteric Coated [Aspirin EC] 81 mg PO DAILY 09/15/15 [History] Calcium Carbonate/Vitamin D3 [Calcium 600 + D Tablet] 1 tab PO DAILY 09/15/15 [History] Clopidogrel Bisulfate [Clopidogrel] 75 mg PO QAM 09/15/15 [History] Famotidine 20 mg PO BID 09/15/15 [History] Furosemide 20 mg PO DAILY 09/15/15 [History] Hydrocodone/Acetaminophen [Hydrocodone-Acetamin 5-325 mg] 1 tab PO TID 09/15/15 [History] Levothyroxine [Synthroid] 125 mcg PO DAILY 09/15/15 [History] Multivit-Min/FA/Lycopen/Lutein [Centrum Silver Tablet] 1 tab PO DAILY 09/15/15 [History] Potassium Chloride 20 meq PO BID 09/15/15 [History] Atorvastatin [Lipitor] 40 mg PO HS 30 Days tablet 09/18/15 [Rx] Cephalexin [Keflex] 500 mg PO TID 10 Days capsule 09/18/15 [Rx] Lisinopril [Zestril] 20 mg PO DAILY 30 Days tablet 09/18/15 [Rx] Metoprolol XL (24 HR) Succ [Toprol XL] 50 mg PO DAILY 30 Days tab.er.24h [Rx] Hydrocodone/Acetaminophen [[place] 5-325 Tablet] 1 tab PO TID #30 tab 09/19/15 [Rx] Ondansetron ODT [Zofran ODT] 4 mg SL Q6HR PRN #15 tab.rapdis 01/20/18 [Rx] Allergy/AdvReac Type Severity Reaction Status Date / Time tramadol Allergy Hives Verified 01/20/18 04:11 All Systems Review: The remainder of the systems were reviewed and are negative Physical Examination Vital Signs, Last 4 Hours Pulse Resp BP Pulse Ox 05/08/19 07:15 16 112/77 92 05/08/19 06:20 93 22 114/74 90 05/08/19 06:00 90 20 103/69 88 05/08/19 05:00 103 26 122/78 92 General: Conversant (Diminished air entry bibasilar), No Apparent Distress HEENT: Atraumatic, Normocephaly, Mucus Membranes Moist Neck: No JVD, Normal carotid pulses Cardiac: Reg Rate and Rhythm, Normal S1 and S2, No Murmur Lungs: Normal Breath Sounds, No Wheeze, Rales, Rhonchi Neuro: Alert and responsive, No focal deficits noted Abdomen: Soft, Non-Tender Skin: No rashes noted on visualized skin Musculoskeletal: No Chest Wall Tenderness Extremities: No Clubbing, No Cyanosis, No Edema, Normal Pulses Results 05/08/19 03:50 05/08/19 03:50 Lab Results 05/07/19 05/07/19 05/07/19 23:33 23:33 23:33 WBC 9.6 Hgb 11.9 Hct 36.1 Plt Count 225 INR 1.0 APTT 28.7 Sodium 135 L Potassium 4.0 Chloride 98 Carbon Dioxide 27 BUN 71 H Creatinine 1.53 H Glucose 171 H Calcium 9.3 Magnesium Troponin I 0.15 H* B-Natriuretic Peptide TSH 1.141 05/08/19 05/08/19 05/08/19 03:50 03:50 03:50 WBC 11.4 H Hgb 11.7 Hct 35.3 Plt Count 199 INR 1.2 APTT Sodium 137 Potassium 3.4 L Chloride 100 Carbon Dioxide 27 BUN 67 H Creatinine 1.44 H Glucose 171 H Calcium 9.3 Magnesium 2.1 Troponin I B-Natriuretic Peptide TSH 05/08/19 05/08/19 05/08/19 03:50 03:50 06:19 WBC Hgb Hct Plt Count INR APTT Sodium Potassium Chloride Carbon Dioxide BUN Creatinine Glucose Calcium Magnesium Troponin I 0.15 H* 0.15 H* B-Natriuretic Peptide 955 H TSH Consult Discharge Plan - Plan Referrals: NONE,PCP [Primary Care Provider] -
[2019-05-09] MEDS: Heparin 25,000 UNIT/250 ML D5W 25,000 UNIT/250 ML IV.SOLN IVC SCH ×3 (00:59→17:53)
[2019-05-09] MEDS: Amiodarone Premix 360 MG/200 ML BAG IVC SCH ×3 (03:50→17:36)
[2019-05-09 05:57] LABS: Basophils % 0.2 %; Eosinophils % 0.1 %; Hematocrit 35.7 % (35.3-44.9); Hemoglobin 11.6 g/dL (11.5-15.4); Immature Granulocytes % 0.5 % (0-4); Lymphocytes # 1.5 K/mcL (0.6-4.6); Lymphocytes % 11.1 %; Mean Corpuscular HGB Conc 32.5 g/dL (31.6-35.5); Mean Corpuscular Volume 101.7 fL (83.0-100.0); Mean Platelet Volume 9.7 fL (9.4-12.4); Monocytes # 1.6 K/mcL (0.0-1.3); Monocytes % 11.9 %; Platelet Count 196 K/mcL (140-400); Red Blood Count 3.51 M/mcL (3.82-4.97); Red Cell Distribution Width 15.1 % (11.5-14.5); Segmented Neutrophils % 76.2 %; White Blood Count 13.1 K/mcL (4.3-11.1)
[2019-05-09 06:04] LABS: INR 1.3; Prothrombin Time 14.4 Seconds (9.4-12.1)
[2019-05-09 06:19] LABS: Calcium 8.9 mg/dL (8.6-10.3); Magnesium 2.1 mg/dL (1.6-2.6); Phosphorous 4.4 mg/dL (2.7-4.5); Potassium 3.6 mEq/L (3.5-5.1)
[2019-05-09 06:21] LABS: Platelet Estimate Normal (Normal)
--- NOTE | 2019-05-09 06:56 | Pulmonology Progress Note ---
<AlanisVasquez M - Last Filed: 05/09/19 10:07> Date of Encounter: 05/09/19 Objective PUL Vital signs: Last Vital Signs Temp 97.9 F 05/09/19 07:57 Pulse 100 05/09/19 07:41 Resp 14 05/09/19 07:00 BP 96/66 05/09/19 07:00 Pulse Ox 94 05/09/19 07:40 Results - Laboratory Findings CBC and BMP: 05/09/19 05:26 05/09/19 05:26 PT/INR, D-dimer PT 14.4 Seconds (9.4-12.1) H 05/09/19 05:26 Abnormal lab findings: Abnormal lab results WBC 13.1 K/mcL (4.3-11.1) H 05/09/19 05:26 RBC 3.51 M/mcL (3.82-4.97) L 05/09/19 05:26 MCV 101.7 fL (83.0-100.0) H 05/09/19 05:26 RDW 15.1 % (11.5-14.5) H 05/09/19 05:26 MPV 9.3 fL (9.4-12.4) L 05/08/19 03:50 Neutrophils # 10.0 K/mcL (1.6-8.9) H 05/09/19 05:26 Monocytes # 1.6 K/mcL (0.0-1.3) H 05/09/19 05:26 PT 14.4 Seconds (9.4-12.1) H 05/09/19 05:26 Heparin Anti-Xa, Unfract 0.95 IU/mL (0.30-0.70) H 05/08/19 06:19 Sodium 135 mEq/L (136-145) L 05/07/19 23:33 Potassium 3.4 mEq/L (3.5-5.1) L 05/08/19 03:50 Chloride 96 mEq/L (98-107) L 05/09/19 05:26 BUN 68 mg/dL (8-23) H 05/09/19 05:26 Creatinine 1.71 mg/dL (0.60-1.20) H 05/09/19 05:26 Est GFR ( Amer) 34 (> 60) L 05/09/19 05:26 Est GFR (Non-Af Amer) 28 (> 60) L 05/09/19 05:26 BUN/Creatinine Ratio 40 (6-26) H 05/09/19 05:26 Glucose 147 mg/dL (70-105) H 05/09/19 05:26 POC Glucose 139 mg/dL (70-99) H 05/08/19 23:24 Calculated Osmolality 306 (280-300) H 05/09/19 05:26 Troponin I 0.15 ng/mL (< 0.04) H* 05/08/19 06:19 B-Natriuretic Peptide 955 pg/mL (Less than 100) H 05/08/19 03:50 Procalcitonin 0.89 ng/mL (0.00-0.15) H 05/08/19 07:28 - Microbiology Findings Microbiology Findings: Microbiology, Last 48 Hours 05/08/19 07:28 Blood Culture - Preliminary Peripheral Venipuncture Culture is incubating and being continuously monitored for growth. Final report to follow. 05/08/19 08:38 Blood Culture - Preliminary Peripheral Venipuncture Culture is incubating and being continuously monitored for growth. Final report to follow. - Clinical Findings Intake & Output: Intake & Output 05/08/19 05/09/19 05/09/19 23:59 07:59 15:59 Intake Total 249 / 795 200 / 200 Output Total 275 / 1075 350 / 350 Balance -26 / -280 -150 / -150 Weight 87 kg Consult Discharge Plan - Plan Referrals: NONE,PCP [Primary Care Provider] - - Attending Attestation I examined this patient and my medical decision-making was reviewed with the Resident Physician. I agree with the documented findings, disposition and treatment plan as described except to the extent set forth below. Patient seen and examined. Labs, radiology, chart personally reviewed. 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 There is potential her condition deteriorate and may need invasive mechanical ventilation for her acute hypoxic respiratory failure if her underlying cardiac function does not improve. Cardiovascular: Patient currently on amiodarone and nitroglycerin drip and management of her heart failure will be deferred cardiology team. GI prophylaxis per routine. Unfortunately nutrition would be an issue for her condition does not improve. Heme: DVT prophylaxis per routine ID: Continue antibiotics and plan to de-escalation. Patient will be treated empirically for possible community-acquired pneumonia and if her condition impr ove then antibiotics can be stopped. Renal; urine out put and renal function reviewed. Diuresis as much as possible, hopefully renal function will not deteriorate with that. Endorcine: blood glucose is monitored Lines: all lines checked and no evidence of infections Skin: skin care to prevent pressure ulcers per nursing routine care Dispo: ICU and transfer to Code: Full. Palliative care consult patient. POA will meet with palliative consult. Prognosis. Overall his poor I spent 32 min of Critical Care time with this patient. It involved decision making of high complexity to assess, manipulate, and support vital organ system failure and/or to prevent further life threatening deterioration of the patient's condition. The time involved in the performance of separately reportable procedures was not counted toward critical care time. <Lor Armenta R - Last Filed: 05/09/19 12:54> Date of Encounter: 05/09/19 Time of Encounter: 06:56 Assessment and Plan (1) Acute respiratory failure with hypoxia Current Visit: Yes Status: Acute Patient with signs of overt heart failure on chest x-ray and with edema of bilateral lower extremities Patient satting 89-90% on BiPAP Lasix initiated and nitro drip started Initial diuresis of 1325mL Will give additional lasix today Stat echo shows EF of 50-55% Lactic 2.0 Procal mildly elevated BCx pending CXR 05/09 shows pulmonary edema with bilateral pleural effusions Rocephin and azithromycin ordered for treatment of CAP (2) Community acquired bacterial pneumonia Current Visit: Yes Status: Acute Procal elevated WBC climbing, 13.1 today CXR 05/09 still demonstrates CHF exacerbation Will treat with rocephin and azithromycin for 1-2 days to see if resp status and WBC improve (3) Acute decompensated heart failure Current Visit: Yes Status: Acute Chest x-ray 05/07 showed cardiomegaly with evidence of pulmonary vascular congestion Stat echo with EF of 50-55% Cardiology following - defer to them for further management Possibly secondary to infectious etiology versus NSTEMI Plan as above (4) NSTEMI (non-ST elevated myocardial infarction) Current Visit: Yes Status: Acute Elevated trop of 0.15x3 Heparin ggt and medical management Plan as above (5) Acute kidney injury Current Visit: Yes Status: Acute Creatinine 1.71 Likely secondary to heart failure and lasix Continue diuresis as kidneys tolerate Continue to monitor (6) Ventricular arrhythmia Current Visit: Yes Status: Acute Patient has had runs of wide complex tachycardia Given 300 mg amiodarone bolus and then started on amiodarone drip Had another run of wide-complex tachycardia at 0600 on 05/08 and was given another 150 mg amiodarone Cardiology following Continue to monitor (7) Goals of care, counseling/discussion Current Visit: Yes Status: Acute Patient's nephew is her power of r[facility] Palliative to see today - patient remains full code and is accepting of short term intubation but does not wish to be kept alive [facility] on the ventilator (8) DVT prophylaxis Current Visit: Yes Status: Acute Heparin ggt Subjective Interval history: Pt had diuresis of about 1325mL yesterday after administration of lasix. We will add additional lasix today for further diuresis. The patient has developed an A KI likely secondary to her heart failure and the lasix. Pts white count continues to climb and her procal was mildly elevated, and due to her continued hypoxia and BiPAP dependant nature we will treat her as a CAP and see if her respiratory status and WBC improve. Pt is stable for 2N step down. Family meeting held today with Palliative resulted in maintaining the patient's code status as FULL CODE. Objective PUL Vital signs: Last Vital Signs Temp 98.9 F 05/09/19 03:00 Pulse 106 05/09/19 06:00 Resp 16 05/09/19 06:00 BP 98/69 05/09/19 06:00 Pulse Ox 91 05/09/19 06:00 General appearance: no acute distress, alert Eyes: nonicteric Effort: normal Auscultation: bilateral: rales Cardiovascular: other (tachycardic, irregular rhythm) Gastrointestinal: soft, non-tender Integumentary: normal Extremities: pink and warm, edema (2+ pitting edema of BL LE) normal mental status, non-focal exam, pupils equal and round mood appropriate, affect normal Results - Laboratory Findings CBC and BMP: 05/09/19 05:26 05/09/19 05:26 PT/INR, D-dimer PT 14.4 Seconds (9.4-12.1) H 05/09/19 05:26 Abnormal lab findings: Abnormal lab results WBC 13.1 K/mcL (4.3-11.1) H 05/09/19 05:26 RBC 3.51 M/mcL (3.82-4.97) L 05/09/19 05:26 MCV 101.7 fL (83.0-100.0) H 05/09/19 05:26 RDW 15.1 % (11.5-14.5) H 05/09/19 05:26 MPV 9.3 fL (9.4-12.4) L 05/08/19 03:50 Neutrophils # 10.0 K/mcL (1.6-8.9) H 05/09/19 05:26 Monocytes # 1.6 K/mcL (0.0-1.3) H 05/09/19 05:26 PT 14.4 Seconds (9.4-12.1) H 05/09/19 05:26 Heparin Anti-Xa, Unfract 0.95 IU/mL (0.30-0.70) H 05/08/19 06:19 Sodium 135 mEq/L (136-145) L 05/07/19 23:33 Potassium 3.4 mEq/L (3.5-5.1) L 05/08/19 03:50 Chloride 96 mEq/L (98-107) L 05/09/19 05:26 BUN 68 mg/dL (8-23) H 05/09/19 05:26 Creatinine 1.71 mg/dL (0.60-1.20) H 05/09/19 05:26 Est GFR ( Amer) 34 (> 60) L 05/09/19 05:26 Est GFR (Non-Af Amer) 28 (> 60) L 05/09/19 05:26 BUN/Creatinine Ratio 40 (6-26) H 05/09/19 05:26 Glucose 147 mg/dL (70-105) H 05/09/19 05:26 POC Glucose 139 mg/dL (70-99) H 05/08/19 23:24 Calculated Osmolality 306 (280-300) H 05/09/19 05:26 Troponin I 0.15 ng/mL (< 0.04) H* 05/08/19 06:19 B-Natriuretic Peptide 955 pg/mL (Less than 100) H 05/08/19 03:50 Procalcitonin 0.89 ng/mL (0.00-0.15) H 05/08/19 07:28 - Microbiology Findings Microbiology Findings: Microbiology, Last 48 Hours 05/08/19 07:28 Blood Culture - Preliminary Peripheral Venipuncture Culture is incubating and being continuously monitored for growth. Final report to follow. 05/08/19 08:38 Blood Culture - Preliminary Peripheral Venipuncture Culture is incubating and being continuously monitored for growth. Final report to follow. - Clinical Findings Intake & Output: Intake & Output 05/08/19 05/08/19 05/09/19 15:59 23:59 07:59 Intake Total 46 / 795 249 / 795 200 / 200 Output Total 800 / 1075 275 / 1075 250 / 250 Balance -754 / -280 -26 / -280 -50 / -50 Weight 87 kg
[2019-05-09] MEDS ORDERED: cefTRIAXone 1,000 MG in 0.9 % Sodium Chloride Mini Bag 100 ML IVPB ONE (06:57)
[2019-05-09] MEDS ORDERED: Azithromycin 500 MG in D5% in Water 250 ML IVPB SCH (08:00)
--- NOTE | 2019-05-09 08:46 | Cardiology Progress Note ---
Date of Encounter: 05/09/19 Time of Encounter: 08:45 Assessment and Plan (1) Acute respiratory failure with hypoxia Current Visit: Yes Status: Acute Per Cardiology: Currently BiPAP dependent. BNP in the 900s. On Lasix 20 mg IV daily. Net I&O -330ml-- will add strict I&O and daily weights. Recommend addition of fluid restriction when able to tolerate by mouth intake. On antibiotics per primary service. WBC slightly worsening, afebrile. Patient reports improvement in respiratory status. (2) Acute kidney injury Current Visit: Yes Status: Acute Per Cardiology: Presents with ANA MARÍA, slightly worsened today. On Lasix 20 mg IV daily. Continue to monitor kidney function closely. Consider nephrology consult if warranted. (3) Troponin level elevated Current Visit: Yes Status: Acute Per Cardiology: Troponins 0.153, flat and adynamic. Suspect type II demand ischemia in setting of ANA MARÍA, suspected respiratory infection, and CHF. EF preserved at 50-55% on echocardiogram. No cardiac rehabilitation consult warranted at this time. Palliative care consult pending to address long-term CODE STATUS. Can consider further ischemic evaluation based on hospital course. Cardiology to continue to follow. Currently chest pain-free, will wean nitroglycerin drip off. On BB-- will add asa and statin (LFTs stable). (4) Wide-complex tachycardia Current Visit: Yes Status: Acute Per Cardiology: Seen by Dr. Montenegro: "Possible ventricular tachycardia due to underlying ischemia. Upon review of previous EKGs patient does seem to have ectopy with similar pattern right bundle-branch like. Stable VT with no hemodynamic compromise and asymptomatic." Remains on amiodarone drip, will evaluate potential conversion to by mouth amiodarone if needed. Currently anticoagulated with IV heparin drip, will need to evaluate during hospital stay. Discussion w patient/family: The assessment and plan as outlined above was discussed with the patient and/or family members who expressed understanding and agreement. All questions were answered. Thank you for involving us in the care of your patient. Please call with any questions. Subjective Principal diagnosis: Short of breath, elevated troponin Interval history: Patient seen with no family at bedside. Alert and oriented 3. Pleasant and cooperative. Currently denies any chest pain or palpitations. She reports overall short of breath has improved during hospital stay. Does not utilize oxygen at home. Objective Vital Signs, Last 4 Hours Temp Pulse Resp BP Pulse Ox 07/22/19 07:57 97.9 F 05/09/19 07:41 100 05/09/19 07:40 94 05/09/19 07:00 92 14 96/66 94 05/09/19 06:00 106 16 98/69 91 05/09/19 05:00 102 20 116/81 94 General: Conversant, No Apparent Distress HEENT: Atraumatic, Normocephaly, Mucus Membranes Moist Neck: No JVD, Normal carotid pulses Cardiac: No Murmur, Other (Irregularly irregular) Lungs: Other (On BiPAP, conversational dyspnea noted, diminished breath sounds to bilateral bases) Neuro: Alert and responsive, No focal deficits noted Abdomen: Soft, Non-Tender Skin: No rashes noted on visualized skin Musculoskeletal: No Chest Wall Tenderness Extremities: No Clubbing, No Cyanosis, No Edema, Normal Pulses Results 05/09/19 05:26 05/09/19 05:26 Lab Results Laboratory Tests 05/07/19 05/07/19 05/07/19 23:33 23:33 23:45 WBC 9.6 Hgb Hct Plt Count INR Creatinine 1.53 H Magnesium Troponin I 0.15 H* B-Natriuretic Peptide TSH 1.141 Stool Occult Bld Scrn Negative 05/08/19 05/08/19 05/08/19 03:50 03:50 06:19 WBC Hgb Hct Plt Count INR Creatinine Magnesium Troponin I 0.15 H* 0.15 H* B-Natriuretic Peptide 955 H TSH Stool Occult Bld Scrn 05/09/19 05/09/19 05/09/19 05:26 05:26 05:26 WBC 13.1 H Hgb 11.6 Hct 35.7 Plt Count 196 INR 1.3 Creatinine 1.71 H Magnesium 2.1 Troponin I B-Natriuretic Peptide TSH Stool Occult Bld Scrn Laboratory Tests 04/18/19 09:49 AST 22 ALT 15 ITS Impressions Chest X-Ray 05/07/19 23:06 IMPRESSION: Chronic interstitial lung disease with probable small right pleural effusion and minimal right basilar atelectasis. D/ / 05/08/2019 07:06:16 Kian Clifford MD / [facility] Interpreting Provider: Kian Clifford MD Echocardiogram 05/08/19 06:02 Impressions: LVEF 50-55%, all LV ang not well visualized. Moderate concentric left ventricular hypertrophy. Indeterminate diastolic function. Moderately dilated right ventricle with mild RV hypokinesis. Mild to moderate biatrial dilatation. Mild aortic stenosis. Mild-moderate aortic regurgitation. Mild mitral regurgitation. Moderate-severe tricuspid regurgitation. Moderate pulmonary hypertension. Left Ventricular Wall Motion: Rest Echo Findings The apex, apical inferior, mid inferior, basal inferior, apical anterior, mid anterior and basal anterior ang were not visualized. All other wall segments showed normal motion. Findings: Study Quality * Technically sub-optimal due to poor echocardiographic windows. ECG Findings * Atrial fibrillation. Left Ventricle * LVEF 50-55%, all LV ang not well visualized. * Normal LV chamber size. * Moderate concentric left ventricular hypertrophy. * Indeterminate diastolic function. Right Ventricle * Moderately dilated right ventricle. * Mild right ventricular hypokinesis. Left Atrium * Mildly dilated left atrium. Right Atrium * Moderately dilated right atrium. Interatrial Septum * Interatrial septum not well evaluated. Aortic Valve * Moderately calcified aortic valve leaflets. * Mild aortic stenosis. * Mean gradient 16 mmHg. * Mild-moderate aortic regurgitation. Mitral Valve * Normal mitral valve structure. * No mitral regurgitation. * Mild mitral regurgitation. Tricuspid Valve * Normal tricuspid valve structure. * No tricuspid stenosis. * Moderate-severe tricuspid regurgitation. * Estimated RVSP is 50 mmHg. * Estimated RA pressure is 15 mmHg. * Moderate pulmonary hypertension. Pulmonic Valve * Pulmonic valve is not well visualized. * No pulmonic stenosis. * No pulmonic regurgitation. Aorta * Normally sized aortic root. Pericardium * The pericardium appears normal. IVC * The IVC is dilated. * < 50% respiratory change. Chest X-Ray 05/09/19 06:52 IMPRESSION: 1. Stable cardiomegaly and redemonstration of chronic interstitial pulmonary opacities. 2. Mild bilateral pleural effusions and patchy lung base consolidation which may represent superimposed congestive heart failure. D/ / 05/09/2019 07:42:39 Ramirez Yen MD / [facility] Interpreting Provider: Ramirez Yen MD Active Medications Fentanyl (Duragesic) 25 mcg TD Q72H [facility] Stop: 11/07/19 04:01 Last Admin: 05/08/19 04:33 Dose: 25 mcg Documented by: Furosemide (Lasix) 20 mg IVP DAILY [facility] Stop: 11/08/19 09:01 Heparin Sodium (Porcine) (Heparin) 4,000 unit IVP Q6HR PRN PRN Reason: SEE COMMENTS Stop: 11/07/19 00:12 Heparin Sodium (Porcine) (Heparin) 2,000 unit IVP Q6H PRN PRN Reason: SEE COMMENTS Stop: 11/07/19 00:12 Heparin Sodium/Dextrose (Heparin 25,000 Unit/250 Ml D5w) 25,000 unit in 250 mls @ 9.957 mls/hr IVC .Q24H [facility]; Protocol Stop: 11/07/19 00:16 Last Admin: 05/09/19 00:59 Dose: Not Given Documented by: Nitroglycerin (Nitroglycerin Premix 25 Mg/250 Ml) 25 mg in 250 mls @ 12 mls/hr IVC .[id number] [facility]; Protocol Stop: 11/07/19 01:16 Last Admin: 05/08/19 07:22 Dose: 5 mcg/min, 3 mls/hr Documented by: Amiodarone HCl/Dextrose (Amiodarone Drip Premix 360mg/200ml) 360 mg in 200 mls @ 16.667 mls/hr IVC CONT [facility] Stop: 11/07/19 03:31 Last Admin: 05/09/19 03:50 Dose: 0.5 mg/min, 16.7 mls/hr Documented by: Azithromycin 500 mg/ Dextrose 250 mls @ 252 mls/hr IVPB Q24H [facility] Stop: 11/08/19 08:01 Metoprolol Tartrate (Lopressor) 12.5 mg PO BID [facility] Stop: 11/07/19 11:31 Last Admin: 05/08/19 20:46 Dose: Not Given Documented by: Naloxone HCl (Narcan) 0.4 mg IVP Q2MPRN PRN PRN Reason: SEE COMMENTS Stop: 11/07/19 02:36 Oxycodone HCl (Oxycodone Oral Conc) 5 mg SL Q6H PRN; Protocol PRN Reason: Moderate Pain Stop: 11/07/19 03:41 Last Admin: 05/09/19 00:55 Dose: 5 mg Documented by: - Imaging and Cardiology Chest Xray: report reviewed Stress Test: report reviewed Echo: report reviewed Consult Discharge Plan - Plan Referrals: NONE,PCP [Primary Care Provider] -
[2019-05-09] MEDS ORDERED: Furosemide 20 MG/2 ML VIAL IVP SCH (09:00)
[2019-05-09] MEDS ORDERED: Aspirin Enteric Coated 81 MG Tablet PO SCH ×2 (09:00→15:22)
--- NOTE | 2019-05-09 10:38 | Palliative - Consult Note ---
Date of Encounter: 05/09/19 Time of Encounter: 09:30 - Assessment and Plan (1) Dyspnea Current Visit: Yes Status: Acute Assessment and plan: Patient on Bipap with sats 92%. HOB up. Plan: Lasix IVP - BNP 955 Monitor I&O Supplemental O2 Pulmonology following Monitor Sats ECHO EF 50-55% CXR = Chronic interstitial lung disease and Cardiomegally Antibiotics Qualifiers: Dyspnea type: unspecified Qualified Code(s): R06.00 - Dyspnea, unspecified (2) Goals of care, counseling/discussion Current Visit: Yes Status: Acute Assessment and plan: I spent a total of 45 minutes: 30 minutes were comprised of counseling and information giving around the diagnosis and prognosis with the patient and her nephew/COREY Gant (#[phone]) and [id number]. In summary, DNR status was discussed with explaining each DNR in detail. The patient states that she desires CPR and short term intubation but would not desire ferry terminal agent life support. Code status remains FULL CODE. Patient agreed to transition to short term rehab at discharge for therapy. She desires [facility]. She has been there as a patient in the past. Her baseline function is ambulation with a walker. 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 Currently, the patient lives alone and has never been and doesn't have any children. Her nephew and his family see her periodically. The patient agrees to the POC. (3) Palliative care encounter Current Visit: Yes Status: Acute (4) NSTEMI (non-ST elevated myocardial infarction) Current Visit: Yes Status: Acute (5) Acute respiratory failure with hypoxia Current Visit: Yes Status: Acute Assessment and plan: Bipap on and pulmonology following. (6) Acute decompensated heart failure Current Visit: Yes Status: Acute Palliative-CN HPI - Data of Consult Patient: new to practice Consult date: 05/09/19 Requesting Physician: Lor Armenta Primary Care Provider: PCP NONE - Consult Narrative Palliative Care/Comfort Measures: Palliative care Reason for consult: Goals of care discussion History of present illness: Ms. Tavera is a 88 year old female with history of CAD status post PCI in 2012, hypertension, hyperlipidemia, hypothyroidism, rheumatoid arthritis who presented to the emergency department with complaints of chest pain and diffuse body aches. The patient was found to be in atrial fibrillation with conversion to wide complex tachycardia, concerning for aberrancy vs ventricular tachycardia. The patient was given bolus of amiodarone and placed on amiodarone drip. In consultation with cardiology the patient was also given aspirin 325 mg as well as started on heparin and nitroglycerin drip. The patient admitted to ICU. Chest x-ray shows chronic interstitial lung disease with probable small right pleural effusion with minimal right basilar atelectasis. She otherwise has elevated troponin of 0.15. She is now requiring Bipap to maintain 92% saturation. The patient's nephew is the power of managing attorney. This palliative care has been consulted for further goals of care discussion in the setting of the patient not able to undergo a heart catheterization d/t he inability to lay supine and having orthopnea. CC: Kelin Taylor MD - Time Spent with Patient Time: Total time spent is greater than 50% in coordination of care (as documented) at patient's floor/unit and/or counseling patient: Past Med Surg Social Fam HX - Past Medical History Source: patient, old records reviewed, obtained from family, nursing notes reviewed Medical history: arthritis, coronary artery disease, hypertension, myocardial infarction Psychiatric history: no psych history - Past Surgical History Surgical History: angioplasty/stent, appendectomy, breast surgery, hysterectomy Additional surgical history: CARDIAC STENT - Social History Smoking Status: Never smoker Smokeless Tobacco Status: No Alcohol use: none Drug use: none Occupational status: retired Current living situation: Home - Independent Activity Level: Uses cane/walker Recent Out of Country Travel Within the Last 8 Weeks: No Exposure or Possible Exposure to Illness During Travel: No - Family History Mother Hx Family Cardiac Disorders: Yes (Heart disorder) Medications and Allergies Aspirin Enteric Coated [Aspirin EC] 81 mg PO DAILY 09/15/15 [History] Calcium Carbonate/Vitamin D3 [Calcium 600 + D Tablet] 1 tab PO DAILY 09/15/15 [History] Clopidogrel Bisulfate [Clopidogrel] 75 mg PO QAM 09/15/15 [History] Famotidine 20 mg PO BID 09/15/15 [History] Furosemide 20 mg PO DAILY 09/15/15 [History] Hydrocodone/Acetaminophen [Hydrocodone-Acetamin 5-325 mg] 1 tab PO TID 09/15/15 [History] Levothyroxine [Synthroid] 125 mcg PO DAILY 09/15/15 [History] Multivit-Min/FA/Lycopen/Lutein [Centrum Silver Tablet] 1 tab PO DAILY 09/15/15 [History] Potassium Chloride 20 meq PO BID 09/15/15 [History] Atorvastatin [Lipitor] 40 mg PO HS 30 Days tablet 09/18/15 [Rx] Cephalexin [Keflex] 500 mg PO TID 10 Days capsule 09/18/15 [Rx] Lisinopril [Zestril] 20 mg PO DAILY 30 Days tablet 09/18/15 [Rx] Metoprolol XL (24 HR) Succ [Toprol XL] 50 mg PO DAILY 30 Days tab.er.24h 09/18/15 [Rx] Ondansetron ODT [Zofran ODT] 4 mg SL Q6HR PRN #15 tab.rapdis 01/20/18 [Rx] Allergy/AdvReac Type Severity Reaction Status Date / Time tramadol Allergy Hives Verified 01/20/18 04:11 Review of systems: chest pain - Constitutional Constitutional ROS PAL: fatigue - EENT Eyes: requires corrective lenses - Cardiovascular Cardiovascular ROS: chest pain - Respiratory Respiratory: dyspnea on exertion - Musculoskeletal Musculoskeletal ROS IM: muscle weakness - Neurological Neurological ROS: weakness Palliative Care-Exam - Constitutional Vitals: Temp Pulse Resp BP Pulse Ox 97.9 F 101 15 84/60 89 05/09/19 07:57 05/09/19 08:00 05/09/19 08:00 05/09/19 08:00 05/09/19 08:00 General appearance: Present: cooperative - Head Head Exam: Present: atraumatic, normal inspection - Eye Eye exam: Present: PERRL - ENT ENT exam: Present: mucous membranes moist - Expanded ENT Exam Mouth Exam: Present: moist - Respiratory Respiratory exam: Present: decreased breath sounds Additional comments: Bipap - Expanded Respiratory Exam Location: decreased breath sounds: Left, Right, Lower - Cardiovascular Cardiovascular exam: Present: irregular rhythm, +S1, +S2 - Expanded Cardiovascular Exam Peripheral pulses: 1+: Femoral (L) PM, Femoral (R) PM, Posterior Tibialis (L), Posterior Tibialis (R), 2+: Carotid (L) PM, Carotid (R) PM, Radial (L), Radial (R), Dorsalis Pedis (L) PM, Dorsalis Pedis (R) PM - GI/Abdominal Exam GI/Abdominal exam: Present: normal bowel sounds - Catheter Type: Urethral ([place]) Additional comments: clear yellow urine - Extremities Exam Extremities exam: Present: pedal edema (trace) - Neurological Exam Neurological exam: Present: alert, oriented X3 - Expanded Neurological Exam Patient oriented to: Present: person, place, time Coma Scale Eye Opening: Spontaneous Coma Scale Motor Response: Obeys Commands Coma Scale Verbal Response: Oriented Coma Scale Total: 15 - Psychiatric Psychiatric exam: Present: normal affect - Skin Skin exam: Present: warm Internal Medicine - CN: Reslt - Labs CBC & Chem 7: 05/09/19 05:26 05/09/19 05:26 Labs: Short CBC 05/09/19 Range/Units 05:26 WBC 13.1 H (4.3-11.1) K/mcL Hgb 11.6 (11.5-15.4) g/dL Hct 35.7 (35.3-44.9) % Plt Count 196 (140-400) K/mcL Neutrophils # 10.0 H (1.6-8.9) K/mcL BMP 05/09/19 05:26 Sodium 137 Potassium 3.6 Chloride 96 L Carbon Dioxide 27 BUN 68 H Creatinine 1.71 H Glucose 147 H Calcium 8.9 - ABG Interpretation ABG results: PT/INR, D-dimer PT 14.4 Seconds (9.4-12.1) H 05/09/19 05:26 - Impressions Impressions Chest X-Ray 05/07/19 23:06 IMPRESSION: Chronic interstitial lung disease with probable small right pleural effusion and minimal right basilar atelectasis. D/ / 05/08/2019 07:06:16 Kian Clifford MD / sangita Interpreting Provider: Kian Clifford MD Chest X-Ray 05/09/19 06:52 IMPRESSION: 1. Stable cardiomegaly and redemonstration of chronic interstitial pulmonary opacities. 2. Mild bilateral pleural effusions and patchy lung base consolidation which may represent superimposed congestive heart failure. D/ / 05/09/2019 07:42:39 Ramirez Yen MD / arcenio Interpreting Provider: Ramirez Yen MD Consult Discharge Plan - Plan Referrals: NONE,PCP [Primary Care Provider] - Palliative Quality Palliative Quality: Screen for Code Status: Yes, Screen for Goals of Care: Yes, Screen for Pain: Yes, Screen for Nausea/Vomitting: Yes Code Status: 05/08/19 00:34 Resuscitation Status: Active [RES] Stat Comment: Resuscitation Status: Full Code Palliative Scale - Palliative Performance Scale How ambulatory is this patient?: Mainly sit / lie What is patient's level of activity and evidence of disease?: Unable hobby/ho usework, Significant disease How much self-care assistance does patient require?: Considerable assistance required How much oral intake does the patient have?: Normal or reduced What is this patient's level of consciousness?: Full Palliative Performance Score: 60 %
[2019-05-09] MEDS ORDERED: *HR* HYDROcodone/Acet 5/325 mg TABLET PO PRN (10:45)
--- NOTE | 2019-05-09 10:53 | Electrocardiograph Report ---
[address] [place], [place] [address] Test Date: 2019-05-08 Pat Name: Arlin Tavera Department: [id number] Room: 02 Gender: F Web [employer] Press Feeder: : [id number] Requested By: Jose Bush Order Number: [id number] Reading MD: Ever Vences Measurements Intervals [place] Rate: 130 P: 0 OK: QRS: 88 QRSD: 177 T: -81 QT: 398 QTc: 586 Interpretive Statements SINUS BEAT, VENTRICULAR TACHYCARDIA Electronically Signed On 05-09-2019 10:51:46 EDT by Ever Vences
[2019-05-09] MEDS ORDERED: Furosemide 20 MG/2 ML VIAL IVP ONE (13:51)
[2019-05-09] MEDS ORDERED: *HR* Heparin 5,000 UNIT/ML VIAL IVP PRN ×2 (15:22)
[2019-05-09] MEDS ORDERED: Naloxone 0.4 MG/ML INJ IVP PRN (15:22)
[2019-05-09] MEDS ORDERED: Lisinopril 20 MG TABLET PO SCH (15:22)
[2019-05-09] MEDS: Multivit/Ca/Min/Fe/FA 1 TAB TABLET PO SCH (19:02)
[2019-05-09] MEDS: Famotidine 20 MG TABLET PO SCH (20:40)
[2019-05-09] MEDS: *HR* HYDROcodone/Acet 5/325 mg TABLET PO PRN (20:41)
[2019-05-10] MEDS: *HR* HYDROcodone/Acet 5/325 mg TABLET PO PRN ×3 (02:59→17:18)
[2019-05-10] MEDS: Amiodarone Premix 360 MG/200 ML BAG IVC SCH (03:00)
[2019-05-10 05:56] LABS: Basophils % 0.4 %; Eosinophils # 0.2 K/mcL (0.0-0.6); Eosinophils % 2.1 %; Hematocrit 34.8 % (35.3-44.9); Hemoglobin 11.5 g/dL (11.5-15.4); Immature Granulocytes % 0.3 % (0-4); Lymphocytes # 1.6 K/mcL (0.6-4.6); Lymphocytes % 16.1 %; Mean Corpuscular Hemoglobin 32.5 pg (28.0-33.3); Mean Corpuscular Volume 98.3 fL (83.0-100.0); Mean Platelet Volume 9.5 fL (9.4-12.4); Monocytes # 1.1 K/mcL (0.0-1.3); Monocytes % 10.8 %; Platelet Count 213 K/mcL (140-400); Red Blood Count 3.54 M/mcL (3.82-4.97); Red Cell Distribution Width 14.9 % (11.5-14.5); Segmented Neutrophils % 70.3 %
[2019-05-10 06:10] LABS: Calcium 8.9 mg/dL (8.6-10.3); Magnesium 2.2 mg/dL (1.6-2.6); Phosphorous 4.8 mg/dL (2.7-4.5); Potassium 3.2 mEq/L (3.5-5.1)
[2019-05-10 06:16] LABS: INR 1.1; Prothrombin Time 12.3 Seconds (9.4-12.1)
[2019-05-10] MEDS: Azithromycin 500 MG in D5% in Water 250 ML IVPB SCH (06:23)
[2019-05-10] MEDS: cefTRIAXone 1,000 MG in Water for inj. (sterile) 10 ML IVP SCH (08:09)
[2019-05-10] MEDS: Aspirin Enteric Coated 81 MG Tablet PO SCH (08:10)
[2019-05-10] MEDS: Multivit/Ca/Min/Fe/FA 1 TAB TABLET PO SCH (08:11)
[2019-05-10] MEDS: Famotidine 20 MG TABLET PO SCH (08:11)
--- NOTE | 2019-05-10 08:59 | Cardiology Progress Note ---
Date of Encounter: 05/10/19 Time of Encounter: 09:00 Assessment and Plan (1) Acute respiratory failure with hypoxia Current Visit: Yes Status: Acute Per Cardiology: CXR 05/09: IMPRESSION: 1. Stable cardiomegaly and redemonstration of chronic interstitial pulmonary opacities. 2. Mild bilateral pleural effusions and patchy lung base consolidation which may represent superimposed congestive heart failure. Currently BiPAP dependent. Suspect multifactorial. BNP was in the 900s. On Lasix 20 mg IV daily. Net I&O -52ml. On strict I&O and daily weights. Pulmonology following. (2) Acute kidney injury Current Visit: Yes Status: Acute Per Cardiology: Presented with ANA MARÍA, continues to worsen. On Lasix 20 mg IV daily by primary service. Resp status improving somewhat. Recommend consider holding IV lasix or consider PO lasix. Recommend Nephrology consult. (3) Troponin level elevated Current Visit: Yes Status: Acute Per Cardiology: Troponins 0.15 3, flat and adynamic. Suspect type II demand ischemia in setting of ANA MARÍA, suspected respiratory infection, and CHF. EF 50-55% on echocardiogram. On BB, asa, statin. CP free. Patient declines further ischemic eval. during stay. Will f/u as outpatient and re-evaluate any potential need for LHC then. (4) Wide-complex tachycardia Current Visit: Yes Status: Acute Per Cardiology: Seen by Dr. Montenegro: "Possible ventricular tachycardia due to underlying ischemia. Upon review of previous EKGs patient does seem to have ectopy with similar pattern right bundle-branch like. Stable VT with no hemodynamic compromise and asymptomatic." Remains on amiodarone drip. ECGs and strips reviewed with Dr. Vences, felt to be slow VT. Will convert to PO amio 400mg PO BID for now. Recommend LHC, however worsening ANA MARÍA and patient declines inpatient cath for now. (5) PAF (paroxysmal atrial fibrillation) Current Visit: Yes Status: Acute Per Cardiology: Strips reviewed and has evidence of PAF as well. Has known hx of PAF. On BB and amio. Regarding long-term anticoagulation, currently on IV heparin drip. Patient has declined long-term anticoagulation in the past. Discussion w patient/family: The assessment and plan as outlined above was discussed with the patient and/or family members who expressed understanding and agreement. All questions were answered. Thank you for involving us in the care of your patient. Please call with any questions. Subjective Principal diagnosis: Short of breath, elevated troponin Interval history: Patient reports short of breath continues to improve. She denies any chest pain or palpitations. Objective Vital Signs, Last 4 Hours Temp Pulse Resp BP Pulse Ox 05/10/19 08:10 97.8 F 05/10/19 06:00 92 18 100/68 91 General: Conversant, No Apparent Distress HEENT: Atraumatic, Normocephaly, Mucus Membranes Moist Neck: No JVD, Normal carotid pulses Cardiac: Reg Rate and Rhythm, Normal S1 and S2, No Murmur Lungs: Other (On Bipap, very mildly labored at rest, diminished breath sounds bilateral bases) Neuro: Alert and responsive, No focal deficits noted Abdomen: Soft, Non-Tender Skin: No rashes noted on visualized skin Musculoskeletal: No Chest Wall Tenderness Extremities: No Clubbing, No Cyanosis, Normal Pulses, Other (+1 nonpitting bilateral LE) Results 05/10/19 05:12 05/10/19 05:12 Lab Results Laboratory Tests 05/10/19 05/10/19 05/10/19 05:12 05:12 05:12 WBC 10.0 Hgb 11.5 Hct 34.8 L INR 1.1 Creatinine 2.01 H Est GFR (Non-Af Amer) 23 L Magnesium 2.2 Intake & Output 05/07/19 05/08/19 05/09/19 05/10/19 23:59 23:59 23:59 23:59 Intake Total 100 / 100 795 / 795 955 / 955 73 / 73 Output Total 1075 / 1075 700 / 700 200 / 200 Balance 100 / 100 -280 / -280 255 / 255 -127 / -127 Weight 88.904 kg 83.9 kg 87 kg 87.8 kg Active Medications Hydrocodone Bitart/Acetaminophen ([place] 5-325 Mg) 1 tab PO TID PRN PRN Reason: pain Stop: 11/08/19 10:46 Last Admin: 05/10/19 08:12 Dose: 1 tab Documented by: Aspirin (Aspirin Ec) 81 mg PO DAILY [facility] Stop: 11/08/19 09:01 Last Admin: 05/10/19 08:10 Dose: 81 mg Documented by: Atorvastatin Calcium (Lipitor) 40 mg PO HS [facility] Stop: 11/08/19 21:01 Last Admin: 05/09/19 20:41 Dose: 40 mg Documented by: Calcium Carbonate (Tums) 500 mg PO DAILY [facility] Stop: 11/08/19 15:23 Last Admin: 05/10/19 08:10 Dose: 500 mg Documented by: Clopidogrel Bisulfate (Plavix) 75 mg PO QAM [facility] Stop: 11/08/19 15:23 Last Admin: 05/10/19 08:11 Dose: 75 mg Documented by: Famotidine (Pepcid) 10 mg PO BID [facility]; Protocol Stop: 11/08/19 21:01 Last Admin: 05/10/19 08:11 Dose: 10 mg Documented by: Furosemide (Lasix) 20 mg IVP DAILY [facility] Stop: 11/08/19 09:01 Last Admin: 05/10/19 08:10 Dose: 20 mg Documented by: Heparin Sodium (Porcine) (Heparin) 4,000 unit IVP Q6HR PRN PRN Reason: SEE COMMENTS Stop: 11/07/19 00:12 Heparin Sodium (Porcine) (Heparin) 2,000 unit IVP Q6H PRN PRN Reason: SEE COMMENTS Stop: 11/07/19 00:12 Last Admin: 05/09/19 22:23 Dose: 2,000 unit Documented by: Amiodarone HCl/Dextrose (Amiodarone Drip Premix 360mg/200ml) 360 mg in 200 mls @ 16.667 mls/hr IVC CONT [facility] Stop: 11/07/19 03:31 Last Admin: 05/10/19 03:00 Dose: 0.5 mg/min, 16.7 mls/hr Documented by: Azithromycin 500 mg/ Dextrose 250 mls @ 252 mls/hr IVPB Q24H [facility] Stop: 11/08/19 07:01 Last Admin: 05/10/19 06:23 Dose: 252 mls/hr Documented by: Heparin Sodium/Dextrose (Heparin 25,000 Unit/250 Ml D5w) 25,000 unit in 250 mls @ 9.957 mls/hr IVC .Q24H [facility]; Protocol Stop: 11/07/19 00:16 Last Admin: 05/09/19 17:53 Dose: Not Given Documented by: Ceftriaxone Sodium 1,000 mg/ (Sterile Water) 10 mls @ 600 mls/hr IVP DAILY [facility] Stop: 11/09/19 09:01 Last Admin: 05/10/19 08:09 Dose: 600 mls/hr Documented by: Levothyroxine Sodium (Synthroid) 125 mcg PO 0630 [facility] Stop: 11/09/19 06:31 Last Admin: 05/10/19 06:22 Dose: 125 mcg Documented by: Metoprolol Tartrate (Lopressor) 12.5 mg PO BID [facility] Stop: 11/07/19 11:31 Last Admin: 05/10/19 08:11 Dose: 12.5 mg Documented by: Multivitamins/Calcium (Thera M Plus) 1 tab PO DAILY [facility] Stop: 11/08/19 15:23 Last Admin: 05/10/19 08:11 Dose: 1 tab Documented by: Naloxone HCl (Narcan) 0.4 mg IVP Q2MPRN PRN PRN Reason: SEE COMMENTS Stop: 11/07/19 02:36 - Imaging and Cardiology Echo: report reviewed Consult Discharge Plan - Plan Referrals: NONE,PCP [Primary Care Provider] -
[2019-05-10] MEDS ORDERED: cefTRIAXone 1,000 MG in Water for inj. (sterile) 10 ML IVP SCH (09:00)
[2019-05-10] MEDS ORDERED: Furosemide 20 MG/2 ML VIAL IVP SCH (09:00)
--- NOTE | 2019-05-10 10:58 | Palliative Progress Note ---
Date of Encounter: 05/10/19 Time of Encounter: 09:30 - Assessment and plan (1) Dyspnea Current Visit: No Status: Acute Assessment and plan: Patient tolerating Oxy mask as 15L with sats 91%. Alert, able to CBD. Plan: Supplemental O2 Bipap PRN HOB up CDB CXR - Chronic patchy lung consolidation Qualifiers: Dyspnea type: unspecified Qualified Code(s): R06.00 - Dyspnea, unspecified (2) Goals of care, counseling/discussion Current Visit: Yes Status: Acute Assessment and plan: Called nephmil Gant and gave update on POC. Informed that Nephrology would seeing patient today for worsening renal function. Verbalized understanding of patient condition and POC. (3) Palliative care encounter Current Visit: Yes Status: Acute (4) NSTEMI (non-ST elevated myocardial infarction) Current Visit: Yes Status: Acute Assessment and plan: Cardiology following. Patient not candidate for [facility] based on desires and renal panel. (5) Acute respiratory failure with hypoxia Current Visit: Yes Status: Acute Assessment and plan: Tolerating Oxy mask with Bipap PRN. (6) Acute decompensated heart failure Current Visit: Yes Status: Acute - Time Spent With Patient Total time spent is greater than 50% in coordination of care (as documented) at patient's floor/unit and/or counseling patient: less than 15 minutes - Subjective Interval history: Patient alert, tolerating Oxy mask at 15L. Sats 91%. Patient reports feeling nauseated this AM. Patient had couple doses of Leopold and has been NPO. - Constitutional Vitals: Abnormal lab results WBC 13.1 K/mcL (4.3-11.1) H 05/09/19 05:26 RBC 3.54 M/mcL (3.82-4.97) L 05/10/19 05:12 Hct 34.8 % (35.3-44.9) L 05/10/19 05:12 MCV 101.7 fL (83.0-100.0) H 05/09/19 05:26 RDW 14.9 % (11.5-14.5) H 05/10/19 05:12 MPV 9.3 fL (9.4-12.4) L 05/08/19 03:50 Neutrophils # 10.0 K/mcL (1.6-8.9) H 05/09/19 05:26 Monocytes # 1.6 K/mcL (0.0-1.3) H 05/09/19 05:26 PT 12.3 Seconds (9.4-12.1) H 05/10/19 05:12 Heparin Anti-Xa, Unfract 0.17 IU/mL (0.30-0.70) L 05/09/19 21:38 Sodium 135 mEq/L (136-145) L 05/10/19 05:12 Potassium 3.2 mEq/L (3.5-5.1) L 05/10/19 05:12 Chloride 95 mEq/L (98-107) L 05/10/19 05:12 BUN 76 mg/dL (8-23) H 05/10/19 05:12 Creatinine 2.01 mg/dL (0.60-1.20) H 05/10/19 05:12 Est GFR ( Amer) 28 (> 60) L 05/10/19 05:12 Est GFR (Non-Af Amer) 23 (> 60) L 05/10/19 05:12 BUN/Creatinine Ratio 38 (6-26) H 05/10/19 05:12 Glucose 147 mg/dL (70-105) H 05/09/19 05:26 POC Glucose 142 mg/dL (70-99) H 05/09/19 11:20 Calculated Osmolality 303 (280-300) H 05/10/19 05:12 Phosphorus 4.8 mg/dL (2.7-4.5) H 05/10/19 05:12 Troponin I 0.15 ng/mL (< 0.04) H* 05/08/19 06:19 B-Natriuretic Peptide 955 pg/mL (Less than 100) H 05/08/19 03:50 Procalcitonin 0.89 ng/mL (0.00-0.15) H 05/08/19 07:28 - Head Head exam: Present: atraumatic, normal inspection - Eye Pupils: Present: PERRL - ENT ENT exam: Present: mucous membranes moist - Neck Neck exam: Present: normal inspection - Respiratory Respiratory exam: Present: decreased breath sounds, prolonged expiratory phase - Expanded Respiratory Exam Location: decreased breath sounds: Right, Left, Lower, rhonchi: Left, Right, Upper - Cardiovascular Cardiovascular exam: Present: irregular rhythm, +S1, +S2 - Expanded Cardiovascular Exam Peripheral pulses: 1+: Femoral (L) PM, Femoral (R) PM, Posterior Tibialis (L), Posterior Tibialis (R), 2+: Carotid (L) PM, Carotid (R) PM, Radial (L), Radial (R), Dorsalis Pedis (L) PM, Dorsalis Pedis (R) PM - GI/Abdominal GI/Abdominal exam: Present: normal bowel sounds, soft - Extremities Exam Extremities exam: Present: pedal edema (Trace) - Neurological Exam Neurological exam: Present: alert, oriented X3 - Psychiatric Psychiatric exam: Present: normal affect - Skin Skin exam: Present: pallor, warm Palliative Quality Palliative Quality: Screen for Code Status: Yes, Screen for Goals of Care: Yes, Screen for Pain: Yes, Screen for Nausea/Vomitting: Yes Code Status: 05/08/19 00:34 Resuscitation Status: Active [RES] Stat Comment: Resuscitation Status: Full Code - Labs CBC & Chem 7: 05/10/19 05:12 05/10/19 05:12 Labs: Laboratory Results - last 24 hr 05/09/19 05/09/19 05/09/19 11:20 21:38 23:05 WBC RBC Hgb Hct MCV MCH MCHC RDW Plt Count MPV Immature Gran % Seg Neutrophils % Lymphocytes % Monocytes % Eosinophils % Basophils % Neutrophils # Lymphocytes # Monocytes # Eosinophils # Basophils # PT INR Heparin Anti-Xa, Unfract 0.17 L Sodium Potassium Chloride Carbon Dioxide BUN Creatinine Est GFR ( Amer) Est GFR (Non-Af Amer) BUN/Creatinine Ratio Glucose POC Glucose 142 H 84 Calculated Osmolality Calcium Phosphorus Magnesium 05/10/19 05/10/19 05/10/19 05:12 05:12 05:12 WBC 10.0 RBC 3.54 L Hgb 11.5 Hct 34.8 L MCV 98.3 MCH 32.5 MCHC 33.0 RDW 14.9 H Plt Count 213 MPV 9.5 Immature Gran % 0.3 Seg Neutrophils % 70.3 Lymphocytes % 16.1 Monocytes % 10.8 Eosinophils % 2.1 Basophils % 0.4 Neutrophils # 7.0 Lymphocytes # 1.6 Monocytes # 1.1 Eosinophils # 0.2 Basophils # 0.0 PT 12.3 H INR 1.1 Heparin Anti-Xa, Unfract Sodium 135 L Potassium 3.2 L Chloride 95 L Carbon Dioxide 28 BUN 76 H Creatinine 2.01 H Est GFR ( Amer) 28 L Est GFR (Non-Af Amer) 23 L BUN/Creatinine Ratio 38 H Glucose 105 POC Glucose Calculated Osmolality 303 H Calcium 8.9 Phosphorus 4.8 H Magnesium 2.2 05/10/19 05:12 WBC RBC Hgb Hct MCV MCH MCHC RDW Plt Count MPV Immature Gran % Seg Neutrophils % Lymphocytes % Monocytes % Eosinophils % Basophils % Neutrophils # Lymphocytes # Monocytes # Eosinophils # Basophils # PT INR Heparin Anti-Xa, Unfract 0.39 Sodium Potassium Chloride Carbon Dioxide BUN Creatinine Est GFR ( Amer) Est GFR (Non-Af Amer) BUN/Creatinine Ratio Glucose POC Glucose Calculated Osmolality Calcium Phosphorus Magnesium - ABG Interpretation ABG results: PT/INR, D-dimer PT 12.3 Seconds (9.4-12.1) H 05/10/19 05:12 Palliative Scale - Palliative Performance Scale How ambulatory is this patient?: Mainly sit / lie What is patient's level of activity and evidence of disease?: Unable hobby/housework, Significant disease How much self-care assistance does patient require?: Considerable assistance required How much oral intake does the patient have?: Normal or reduced What is this patient's level of consciousness?: Full Palliative Performance Score: 60 % Consult Discharge Plan - Plan Referrals: NONE,PCP [Primary Care Provider] -
[2019-05-10] MEDS: *HR* Amiodarone 200 MG TABLET PO SCH ×2 (11:59→19:39)
[2019-05-10] MEDS: Heparin 25,000 UNIT/250 ML D5W 25,000 UNIT/250 ML IV.SOLN IVC SCH (12:09)
--- NOTE | 2019-05-10 12:12 | Internal Med Progress Note ---
Hospitalist Progress Note - Encounter Date of Encounter: 05/10/19 Time of Encounter: 10:30 - Subjective Interval History: H&P reviewed. Patient with history of CAD status post PCI in 2012, hypertension, hyperlipidemia, hypothyroidism, rheumatoid arthritis, was admitted on 05/08 due to acute hypoxic respiratory failure secondary to decompensated heart failure, NSTEMI, and PNA. Patient required continuous BiPAP while receiving lasix, nitro gtt, and IV Abx. She also had wide complex tachycardia that required amiodarone gtt. Troponin pattern since the presentation remained flat and adynamic at 0.15. She is weaned to oxygen mask and is currently awai ting to be transferred to [facility]. States that her breathing is marginally better than yesterday and confirms her wish that she does not want any ischemic eval during her stay just yet. No fever overnight - Exam Vitals: Temp Pulse Resp BP Pulse Ox 98.1 F 93 15 110/72 98 05/10/19 12:05 05/10/19 10:32 05/10/19 10:00 05/10/19 10:00 05/10/19 10:00 Exam: General: Alert and oriented x 3, mild respiratory distress. Cardiovascular:Normal S1 & S2, No JVD. Pulse regular and borderline tachycardic Lungs: bilateral rhonchi, unable to appreciate significant Rales Abdomen:Soft, non-tender, no rigidity. Extremities:No joint deformity or effusion Neurological:Normal cognition and motor skills. Non-focal - Assessment and Plan (1) Acute respiratory failure with hypoxia Current Visit: Yes Status: Acute Assessment and Plan: likely a combination of fluid overload as well as CAP echocardiogram showed EF 50-55%. Also has moderate pHTN with dilated/hypokinetic RV as well as mod-severe TR. Suspect a component of pHTN in her hypoxia initially required continuous BiPAP and now weaned to Oxymask continue IV Yeyo/Azithromycin (D2) despite IV lasix 20mg BID yesterday, she had UOP of 700 yesterday and without significant change in respiratory status. She also had further increase in Cr will hold further diuretics, consult nephrology PE was not ruled out but she is already on anticoagulation for NSTEMI if there is no significant improvement in her respiratory status is noted, would consider CT chest (2) Acute decompensated heart failure Current Visit: Yes Status: Acute Assessment and Plan: was on lasix and nitro which is d/htiago echo asabove will monitor Cr off lasix (3) NSTEMI (non-ST elevated myocardial infarction) Current Visit: Yes Status: Acute Assessment and Plan: trop 0.15 - 0.15 - 0.15 also had wide complex tachycardia on the day of presentation requiring amiodarone gtt on hep gtt, continue ASA, statin, bb pt declines LHC for now. Echo showed preserved EF follow with cardiology (4) Community acquired bacterial pneumonia Current Visit: Yes Status: Acute Assessment and Plan: WBC improving, abx as above for respiratory failure (5) Acute kidney injury Current Visit: Yes Status: Acute Assessment and Plan: could be consistent with ATN from underlying infection but was also on intermittent diuretics no significant rales or JVD on exam today, will hold off on lasix Ultrasound retroperitoneum consult nephrology, replete potassium (6) Ventricular arrhythmia Current Visit: Yes Status: Acute Assessment and Plan: transitioning to PO amiodarone, pt declining ischemic eval for now appreciate cardiology input continue bb monitor electrolytes, repleting potassium (7) CAD (coronary artery disease) Current Visit: No Status: Chronic Assessment and Plan: continue home meds (8) DVT prophylaxis Current Visit: Yes Status: Acute Assessment and Plan: on hep gtt - Time Spent with Patient Total time spent is greater than 50% in coordination of care (as documented) at patient's floor/unit and/or counseling patient: Greater than 35 minutes Plan of Care Discussed with: patient (Discussed with nephrology) Internal Medicine: Result - Labs CBC & Chem 7: 05/10/19 05:12 05/10/19 05:12 Labs: Short CBC 05/10/19 Range/Units 05:12 WBC 10.0 (4.3-11.1) K/mcL Hgb 11.5 (11.5-15.4) g/dL Hct 34.8 L (35.3-44.9) % Plt Count 213 (140-400) K/mcL Neutrophils # 7.0 (1.6-8.9) K/mcL BMP 05/10/19 05:12 Sodium 135 L Potassium 3.2 L Chloride 95 L Carbon Dioxide 28 BUN 76 H Creatinine 2.01 H Glucose 105 Calcium 8.9 - ABG Interpretation ABG results: PT/INR, D-dimer PT 12.3 Seconds (9.4-12.1) H 05/10/19 05:12 Consult Discharge Plan - Plan Referrals: NONE,PCP [Primary Care Provider] - (7) CAD (coronary artery disease) Qualifiers: Coronary Disease-Associated Artery/Lesion type: [place] artery [place] vs. transplanted heart: [place] heart Associated angina: with unstable angina Qualified Code(s): I25.110 - Atherosclerotic heart disease of [place] coronary artery with unstable angina pectoris
--- NOTE | 2019-05-10 12:25 | Nephrology Consult Note ---
Date of Encounter: 05/10/19 Time of Encounter: 09:50 Assessment and Plan (1) Acute kidney injury Current Visit: Yes Status: Acute She has non-oliguric acute kidney injury on chronic kidney disease stage III, which might be multifactorial and could be related to her diuretics. When she initially presented, according to the notes, she had significant edema and a very elevated BNP, and I see that she received multiple doses of IV Lasix on a bolus approach. She also developed mild hypokalemia and hyponatremia which very well might be related to the diuretics. A renal ultrasound has been ordered, which I concur. She did not have uremic symptoms or signs on exam, so she will not need initiation of renal replacement therapy today. In the meantime, I recommend holding diuretics to today. I recommend replacing the electrolytes, tracking magnesium, and strict I's and O's, daily weights, and avoidance of further nephrotoxic agents if able. Will check urine studies. I agree with holding the lisinopril d/t the ANA MARÍA Thank you for consult in the [place] [facility] on this complex patient who required a high degree of medical decision-making and evaluation and management. (2) CKD (chronic kidney disease), stage III Current Visit: Yes Status: Acute Baseline CKD stage III noted on her labs. (3) Hypokalemia Current Visit: Yes Status: Acute S/p diuretics. She appears to have already received KCl today and so I rec checking serum Mg (4) Hyponatremia Current Visit: Yes Status: Acute Check urine studies. Rec a slow rate of correction at approx 6-8mEq in the first 24hr. (5) Acute decompensated heart failure Current Visit: Yes Status: Acute As per primary. Her pulmonary status as per primary. History of Present Illness - Reason for Consult Consult date: 05/10/19 Acute Kidney Injury, Chronic Kidney Disease Requesting physician: Miguel Coronado - Chief Complaint ANA MARÍA on CKD - History of Present Illness The patient is a very pleasant 88-year-old female with a past medical history of chronic kidney disease stage III, hypertension, paroxysmal A. fib, HLD and et al who presented several days ago and was noted to have a hypervolemic volume status; she was treated with diuretics. Nephrology was co nsulted because of her serum creatinine and electrolytes over the last few days. She reported that her PCP is Dr. Harper, and I was able to compare her baseline renal function labs with the present. She did not affirm having seen a pie chef in the past. She denied taking [id number] NSAIDs. I reviewed her inpatient labs, vital signs, medication lists, progress notes and imaging, which there appears to be no recent IV contrast enhanced diagnostic studies. I did find a CT the abdomen from January 2019 that did not demonstrate any reported renal abnormality at that time. She did not affirm active nausea, vomiting, diarrhea, chest pain, but she did not affirm having shortness of jorge ath, that is slowly improving since being placed on BiPAP in the ICU. She also set her lower extremities were very swollen when she presented, and now these are much improved. She did not report any cramping or palpitations either. Family history: She did not affirm having any first-degree relatives with a history of ESRD. Past Med Surg Social Fam HX - Past Medical History Medical history: arthritis, coronary artery disease, hypertension, myocardial infarction Psychiatric history: no psych history - Past Surgical History Surgical History: angioplasty/stent, appendectomy, breast surgery, hysterectomy Additional surgical history: CARDIAC STENT - Social History Smoking Status: Never smoker Smokeless Tobacco Status: No Alcohol use: none Drug use: none - Family History Mother Hx Family Cardiac Disorders: Yes (Heart disorder) Medications and Allergies Atenolol [Tenormin] 150 mg PO DAILY 05/10/19 [History] Atorvastatin Calcium [Lipitor] 20 mg PO QPM 05/10/19 [History] Clopidogrel [Plavix] 75 mg PO DAILY 05/10/19 [History] Famotidine [Pepcid] 20 mg PO BID 05/10/19 [History] Furosemide [Lasix] 20 mg PO DAILY 05/10/19 [History] HYDROcodone/Acet 5/325 mg [[place] 5-325 mg] 1 tab PO TID PRN 05/10/19 [History] Isosorbide MONOnitrate (24 HR) [Imdur] 30 mg PO DAILY 05/10/19 [History] Levothyroxine Sodium [Euthyrox] 125 mcg PO QAM 05/10/19 [History] Lisinopril/Hydrochlorothiazide [Zestoretic 20-25 mg Tablet] 1 tab PO DAILY 0 05/10/19 [History] Ondansetron HCl 4 mg PO Q8H PRN 05/10/19 [History] Allergy/AdvReac Type Severity Reaction Status Date / Time tramadol Allergy Hives Verified 01/20/18 04:11 Review of Systems All Systems: reviewed and no additional remarkable complaints except as stated Exam - Vital Signs Vital signs: Initial Vital Signs Temp Pulse Resp BP Pulse Ox 98.6 F 121 22 126/84 92 05/07/19 23:01 05/07/19 23:01 05/07/19 23:01 05/07/19 23:01 05/07/19 23:01 Vital Signs - Last 8 Hours Temp Pulse Resp BP Pulse Ox 05/10/19 12:05 98.1 F 05/10/19 10:32 93 05/10/19 10:00 93 15 110/72 98 05/10/19 09:00 98.4 F 115 23 82/60 98 05/10/19 08:10 97.8 F 05/10/19 08:00 98.4 F 91 15 115/76 96 05/10/19 07:00 98 18 112/77 91 05/10/19 06:00 92 18 100/68 91 Intake and Output 05/09/19 05/10/19 05/10/19 23:59 07:59 15:59 Intake Total 50 / 955 73 / 73 Output Total 200 / 700 50 / 300 250 / 300 Balance -150 / 255 23 / -227 -250 / -227 Intake: IV Fluids 50 / 955 73 / 73 Heparin 25,000 UNIT/250 ML D5W 50 / 205 73 / 73 25,000 unit In 250 ml @ 11.2 UNIT/KG/HR 9.957 mls/hr IVC . Q24H [facility] Rx#:[id number] Output: Catheter 200 / 700 50 / 300 250 / 300 Other: Stool Size Large Stool Consistency formed Stool Characteristics Normal for Patient Stool Color Brown Blood Tinged Weight 87.8 kg Blood Glucose* 84 92 Patient Weight 05/10/19 23:59 Weight 87.8 kg - General Appearance General appearance: well-developed, well-nourished, fatigue EENT: ATNC, PERRL, mucous membranes moist Additional Comments: Using BiPAP Neck: no JVD, supple Respiratory: course breath sounds Cardiology: edema (puffy non pitting pretibial edema bilaterally), regular rate, regular rhythm, normal S1, normal S2 Gastrointestinal: normoactive bowel sounds, no tenderness, no guarding Integumentary: warm and dry, ecchymotic Neurologic: no focal deficit, no asterixis, alert and oriented x3 Musculoskeletal: no cyanosis, no clubbing Psychiatric: mood/affect appropriate, cooperative Results - Lab Results 05/10/19 05:12 05/10/19 05:12 Most recent lab results 05/10/19 05:12 Calcium 8.9 Phosphorus 4.8 H Magnesium 2.2 Consult Discharge Plan - Plan Referrals: NONE,PCP [Primary Care Provider] -
--- NOTE | 2019-05-10 13:37 | Electrocardiograph Report ---
[place] [id number] Test Date: 2019-05-09 Pat Name: Arlin Tavera Department: 109 Room: 02 Gender: F Shoe Stitcher: MADDIE : 1930 Requested By: Rakesh Jarrett Order Number: [id number] Reading MD: Ever Vences Measurements Intervals [place]amy Rate: 111 P: 75 NM: 103 QRS: 75 QRSD: 171 T: -81 QT: 429 QTc: 495 Interpretive Statements Slow ventricular tachycardia, fusion beat terminating into sinus tachycardia Electronically Signed On 05-10-2019 13:35:31 EDT by Ever Vences
[2019-05-10] MEDS ORDERED: Famotidine 20 MG TABLET PO SCH (21:00)
[2019-05-11] MEDS: Prochlorperazine 10 MG/2 ML VIAL IVP PRN (01:18)
[2019-05-11] MEDS: *HR* HYDROcodone/Acet 5/325 mg TABLET PO PRN ×3 (04:26→23:55)
[2019-05-11 05:18] LABS: Basophils % 0.4 %; Eosinophils # 0.4 K/mcL (0.0-0.6); Eosinophils % 4.9 %; Hematocrit 34.3 % (35.3-44.9); Hemoglobin 11.2 g/dL (11.5-15.4); Immature Granulocytes % 0.3 % (0-4); Lymphocytes # 1.4 K/mcL (0.6-4.6); Lymphocytes % 19.8 %; Mean Corpuscular HGB Conc 32.7 g/dL (31.6-35.5); Mean Corpuscular Hemoglobin 32.1 pg (28.0-33.3); Mean Corpuscular Volume 98.3 fL (83.0-100.0); Mean Platelet Volume 9.6 fL (9.4-12.4); Monocytes # 0.9 K/mcL (0.0-1.3); Neutrophils # 4.5 K/mcL (1.6-8.9); Platelet Count 204 K/mcL (140-400); Red Blood Count 3.49 M/mcL (3.82-4.97); Red Cell Distribution Width 14.8 % (11.5-14.5); Segmented Neutrophils % 62.6 %; White Blood Count 7.2 K/mcL (4.3-11.1)
[2019-05-11 05:26] LABS: Prothrombin Time 11.7 Seconds (9.4-12.1)
[2019-05-11 05:30] LABS: Uric Acid 13.9 mg/dL (2.3-7.6)
[2019-05-11 05:31] LABS: Calcium 8.5 mg/dL (8.6-10.3); Magnesium 2.2 mg/dL (1.6-2.6); Phosphorous 4.5 mg/dL (2.7-4.5); Potassium 3.7 mEq/L (3.5-5.1)
[2019-05-11] MEDS: Azithromycin 500 MG in D5% in Water 250 ML IVPB SCH (05:37)
[2019-05-11] MEDS: cefTRIAXone 1,000 MG in Water for inj. (sterile) 10 ML IVP SCH (09:16)
[2019-05-11] MEDS: Multivit/Ca/Min/Fe/FA 1 TAB TABLET PO SCH (09:18)
[2019-05-11] MEDS: *HR* Amiodarone 200 MG TABLET PO SCH ×2 (09:18→20:27)
[2019-05-11] MEDS: Aspirin Enteric Coated 81 MG Tablet PO SCH (09:18)
[2019-05-11] MEDS: Heparin 25,000 UNIT/250 ML D5W 25,000 UNIT/250 ML IV.SOLN IVC SCH (09:20)
--- NOTE | 2019-05-11 10:30 | Nephrology Progress Note ---
Date of Encounter: 05/11/19 Time of Encounter: 09:45 - Assessment and Plan (1) Acute kidney injury Current Visit: Yes Status: Acute Cont to hold nephro toxins as her SCr has worsened. No urgent indications for WIRE WHEELER today. I agree with holding the lisinopril d/t the ANA MARÍA and to hold diuretics. Thank you (2) CKD (chronic kidney disease), stage III Current Visit: Yes Status: Acute (3) Hypokalemia Current Visit: Yes Status: Acute (4) Hyponatremia Current Visit: Yes Status: Acute (5) Acute decompensated heart failure Current Visit: Yes Status: Acute Subjective Principal diagnosis: Short of breath, elevated troponin Interval history: The patient was seen and examined earlier today, and she reported feeling relatively well. She voiced that her swelling is significantly improved compared to when she was first admitted. She did not affirm chest pain, nausea, or diarrhea. She said she is breathing comfortably with her oxygen assistance. She transferred out of the ICU into a 2N room. Objective - Vital Signs Vital signs: Vital Signs Temp Pulse Resp BP Pulse Ox 05/11/19 09:32 118 05/11/19 09:20 96 05/11/19 09:11 98 F 114 18 117/66 96 05/11/19 06:00 91 05/11/19 05:00 86 05/11/19 04:04 97.8 F 05/11/19 04:00 98 12 102/67 97 05/11/19 03:00 109 05/11/19 02:00 99 05/11/19 01:00 118 05/11/19 00:00 101 20 99/65 99 05/10/19 23:57 97.8 F 05/10/19 23:00 114 05/10/19 22:00 88 05/10/19 21:00 99 20 95/59 99 05/10/19 20:05 98.8 F 05/10/19 19:51 114 05/10/19 18:13 117 20 102/62 99 05/10/19 16:37 98.3 F 05/10/19 16:00 98.3 F 102 20 94/59 92 05/10/19 14:15 105 20 103/65 93 05/10/19 12:05 98.1 F 05/10/19 12:00 98.1 F 95 20 110/73 95 05/10/19 10:32 93 Intake and Output 05/10/19 05/11/19 05/11/19 23:59 07:59 15:59 Intake Total 250 / 260 10 / 260 Output Total 375 / 675 100 / 100 Balance -375 / -342 150 / 160 10 / 160 Intake: IV Fluids 250 / 260 10 / 260 Rocephin 1,000 MG In Water for inj. (sterile) 10 ML @ 600 mls/ hr IVP DAILY [facility] Rx#:[id number] Zithromax 500 MG In Dextrose 5% 250 / 250 250 ML @ 252 mls/hr IVPB Q24H [facility] Rx#:[id number] Output: Catheter 375 / 675 100 / 100 Other: Weight 89.4 kg Blood Glucose* 109 - General Appearance Exam: General appearance: well-developed, well-nourished, fatigue EENT: ATNC, PERRL, mucous membranes moist Additional Comments: Using nasal high flow O2 Neck: no JVD, supple Respiratory: course breath sounds Cardiology: edema (puffy non pitting pretibial edema bilaterally), iRRR, normal S1, normal S2 Gastrointestinal: normoactive bowel sounds, no tenderness, no guarding Integumentary: warm and dry, ecchymotic Neurologic: no focal deficit, no asterixis, alert and oriented x3 Musculoskeletal: no cyanosis, no clubbing Psychiatric: mood/affect appropriate, cooperative - Lab 05/11/19 04:24 05/11/19 04:24 Most recent lab results 05/11/19 05/11/19 04:24 04:26 Calcium 8.5 L Phosphorus 4.5 Magnesium 2.2 Urine Sodium 15.2 Consult Discharge Plan - Plan Referrals: NONE,PCP [Primary Care Provider] -
--- NOTE | 2019-05-11 11:23 | Cardiology Progress Note ---
Date of Encounter: 05/11/19 Time of Encounter: 09:30 Assessment and Plan (1) Acute respiratory failure with hypoxia Current Visit: Yes Status: Acute Per Cardiology: -CXR 05/09: bilateral pleural effusions and patchy lung base consolidation which may represent superimposed congestive heart failure. -BNP was in the 900s. Was on IV Lasix 20 mg IV daily. Net I&O -117ml. Iv lasix now held in the setting of ANA MARÍA. -Volume overloaded on exam. -ON high flow O2, not normally on O2 at home. -On strict I&O and daily weights. -Appreciate nephrology input and assistance. (2) CHF (congestive heart failure) Current Visit: Yes Status: Acute Per cardiology: -Acute diastolic CHF. -Remains volume overloaded on exam, however diuretics held in the setting of ANA MARÍA. -TTE with LVEF 50-55%, no visualized segmental wall motion abnormalities noted. -Requiring high flow O2, not normally on O2 at home. -Strict i/os, fluid restriction, daily weights. -Will continue to monitor. Qualifiers: Heart failure type: diastolic Heart failure chronicity: acute Qualified Code(s): I50.31 - Acute diastolic (congestive) heart failure (3) Wide-complex tachycardia Current Visit: Yes Status: Acute Per Cardiology: -ECGs and strips reviewed with Dr. Vences, felt to be slow VT. -Had been on IV amio, then transitioned to PO. On PO amio 400mg PO BID for now. -On BB. INtermittent wide complex tachcyardia noted, non-sustained. -Will increase BB. Monitor BP closely. -Keep K>4, Mg >2. -Recommend LHC, however worsening ANA MARÍA and patient declines inpatient cath for now. Discussed risk of no LHC with patient, patient states understanding and states she does not wish to proceed with LHC at this time. (4) PAF (paroxysmal atrial fibrillation) Current Visit: Yes Status: Acute Per Cardiology: -Strips reviewed and has evidence of PAF as well. Has known hx of PAF. On BB and amio. -Regarding long-term anticoagulation, currently on IV heparin drip. Patient has declined long-term anticoagulation in the past, will determine termite treater helper anticoagulation pending clinical coarse. -Continue heparin drip. (5) Acute kidney injury Current Visit: Yes Status: Acute Per Cardiology: -Presented with ANA MARÍA, continues to worsen. -Appreciate nephrology assistance. Discussion w patient/family: The assessment and plan as outlined above was discussed with the patient who expressed understanding and agreement. All questions were answered. Thank you for involving us in the care of your patient. Please call with any questions. Discussed and reviewed with . Subjective Principal diagnosis: Short of breath, elevated troponin Interval history: Patient denies chest pain. Reports shortness of breath is improved. Denies palpitations/fluttering. Denies dizziness, lightheadedness, syncope, or near syncope. Objective Vital Signs, Last 4 Hours Temp Pulse Resp BP Pulse Ox 05/11/19 09:32 118 05/11/19 09:20 96 05/11/19 09:11 98 F 114 18 117/66 96 General: Conversant, No Apparent Distress HEENT: Atraumatic, Normocephaly, Mucus Membranes Moist Neck: No JVD, Normal carotid pulses Cardiac: Normal S1 and S2, No Murmur, Other (Irregularly irregular) Lungs: Other (Rhonchi noted to bilateral bases. ) Neuro: Alert and responsive, No focal deficits noted Abdomen: Soft, Non-Tender Skin: No rashes noted on visualized skin Musculoskeletal: No Chest Wall Tenderness Extremities: No Clubbing, No Cyanosis, Normal Pulses, Other (bilateral lower extremity edema noted. ) Results 05/11/19 04:24 05/11/19 04:24 Lab Results Impressions Retroperitoneum Ultrasound 05/10/19 17:30 IMPRESSION: Unremarkable ultrasound of the kidneys and urinary bladder. D/ / 05/10/2019 21:17:12 Vanessa Abdi MD / shelby Interpreting Provider: Vanessa Abdi MD Active Medications Hydrocodone Bitart/Acetaminophen ([place] 5-325 Mg) 1 tab PO TID PRN PRN Reason: Pain Stop: 11/09/19 12:07 Last Admin: 05/11/19 04:26 Dose: 1 tab Documented by: Amiodarone HCl (Cordarone) 400 mg PO BID [facility] Stop: 11/09/19 10:12 Last Admin: 05/11/19 09:18 Dose: 400 mg Documented by: Aspirin (Aspirin Ec) 81 mg PO DAILY [facility] Stop: 11/08/19 09:01 Last Admin: 05/11/19 09:18 Dose: 81 mg Documented by: Atorvastatin Calcium (Lipitor) 40 mg PO HS [facility] Stop: 11/08/19 21:01 Last Admin: 05/10/19 19:39 Dose: 40 mg Documented by: Calcium Carbonate (Tums) 500 mg PO DAILY [facility] Stop: 11/08/19 15:23 Last Admin: 05/11/19 09:17 Dose: 500 mg Documented by: Clopidogrel Bis[facility]ate (Plavix) [facility] [place] Stop: 11/08/19 15:23 Last Admin: 05/11/19 09:18 Dose: 75 mg Documented by: Famotidine (Pepcid) 20 mg PO [facility]; Protocol Stop: 11/10/19 21:01 Heparin Sodium (Porcine) (Heparin) 4,000 unit IVP Q6HR PRN PRN Reason: SEE COMMENTS Stop: 11/07/19 00:12 Heparin Sodium (Porcine) (Heparin) 2,000 unit IVP Q6H PRN PRN Reason: SEE COMMENTS Stop: 11/07/19 00:12 Last Admin: 05/09/19 22:23 Dose: 2,000 unit Documented by: Azithromycin 500 mg/ Dextrose 250 mls @ 252 mls/hr IVPB Q24H [facility] Stop: 11/08/19 07:01 Last Infusion: 05/11/19 06:49 Dose: Infused Documented by: Heparin Sodium/Dextrose (Heparin 25,000 Unit/250 Ml D5w) 25,000 unit in 250 mls @ 9.957 mls/hr IVC .Q24H [facility]; Protocol Stop: 11/07/19 00:16 Last Admin: 05/11/19 09:20 Dose: Not Given Documented by: Ceftriaxone Sodium 1,000 mg/ (Sterile Water) 10 mls @ 600 mls/hr IVP DAILY [facility] Stop: 11/09/19 09:01 Last Infusion: 05/11/19 09:19 Dose: Infused Documented by: Levothyroxine Sodium (Synthroid) 125 mcg PO 0630 [facility] Stop: 11/09/19 06:31 Last Admin: 05/11/19 05:37 Dose: 125 mcg Documented by: Metoprolol Tartrate (Lopressor) 25 mg PO BID [facility] Stop: 11/10/19 21:01 Multivitamins/Calcium (Thera M Plus) 1 tab PO DAILY [facility] Stop: 11/08/19 15:23 Last Admin: 05/11/19 09:18 Dose: 1 tab Documented by: Naloxone HCl (Narcan) 0.4 mg IVP Q2MPRN PRN PRN Reason: SEE COMMENTS Stop: 11/07/19 02:36 Prochlorperazine Edisylate (Compazine) 10 mg IVP Q6HR PRN PRN Reason: Nausea Stop: 11/09/19 10:31 Last Admin: 05/11/19 01:18 Dose: 10 mg Documented by: Laboratory Tests 05/07/19 05/08/19 05/08/19 23:33 03:50 03:50 Hgb Creatinine Troponin I 0.15 H* 0.15 H* B-Natriuretic Peptide 955 H 05/08/19 05/11/19 05/11/19 06:19 04:24 04:24 Hgb 11.2 L Creatinine 2.28 H Troponin I 0.15 H* B-Natriuretic Peptide - Imaging and Cardiology Chest Xray: report reviewed Echo: report reviewed - EKG Interpretation EKG results cardiology: other (Telemetry reviewed with average HR previous 12 hours noted to be 101, a.fib. Intermittent wide complex tachycardia noted, non-sustained.) Consult Discharge Plan - Plan Referrals: NONE,PCP [Primary Care Provider] -
--- NOTE | 2019-05-11 12:54 | Internal Med Progress Note ---
Hospitalist Progress Note - Encounter Date of Encounter: 05/11/19 Time of Encounter: 11:15 - Subjective Interval History: Seen at bedside. Is overall feeling better. Denies any chest pain, SOB. Denies any fever or rigors. Pt is looking comfortable. IS currnetly on 10 L of O2 with saturations in mid 90s. - Exam Vitals: Temp Pulse Resp BP Pulse Ox 98.0 F 108 20 112/79 95 05/11/19 11:26 05/11/19 11:39 05/11/19 11:26 05/11/19 11:26 05/11/19 11:42 Exam: General: Alert and oriented, no physical distress, able to follow commands. Eyes: No discharge. Respiratory: Crackles in bilateral lower lung brandon CVS: Normal heart sounds, no murmurs, no edema. Mldly tadchycardic with the HR in 90s. Extremities: No peripheral edema, peripheral pulses intact. Lymph nodes: No lymphadenopathy Gastrointestinal: Soft, nontender abdomen, normal abdominal sounds. No distention noted. Genitourinary: No paravertebral tenderness. Neurological: Alert and oriented. No focal deficits. Cranial nerves II-XII intact. - Assessment and Plan (1) Acute respiratory failure with hypoxia Current Visit: Yes Status: Acute Assessment and Plan: -Etiolgoy likley secondary to PNA with probable fluid overload. -Echocardiogram showed EF 50-55%. Also has moderate pHTN with dilated/hypokinetic RV as well as mod-severe TR. -Was on BPAP previously but on xygen mask now, saturating in mid 90s. -Was on lasix whihc was held due to worsenig kidney functions. -XR repeated today is still concernig for the fluid overlaod. -Output on only 675 in last 24 hours -continue IV Yeyo/Azithromycin (D3) -Currently on heparin drip, PE is a possibility but beacaue of the other explaining factors, we will hold testing for PE now. (2) DVT prophylaxis Current Visit: Yes Status: Acute Assessment and Plan: on hep gtt (3) NSTEMI (non-ST elevated myocardial infarction) Current Visit: Yes Status: Acute Assessment and Plan: -Troponin elevation with 0.15 -ALso had wide complex tachycardia on the day of presentation requiring amiodarone -on hep gtt -continue ASA, statin, bb -COnsdering comorbidites, and pt wishes, no plan for thr LHC. -Cardiolgoy on board, appreicate recommendations (4) CAD (coronary artery disease) Current Visit: No Status: Chronic Assessment and Plan: -Continue home meds (5) Acute kidney injury Current Visit: Yes Status: Acute Assessment and Plan: -Etiolgoy unclear. Could be ATN -Kidney functions still worseing -Lasix on hold -Npehro on board -Will defer the lasix dosing to nephro (6) Acute decompensated heart failure Current Visit: Yes Status: Acute Assessment and Plan: -EF 50-55% -Was on lasix which was held 2/2 worsening Cr. -Xray today showed findings concerning for the fluid overlaod -Diuretic maagement as per nephro - (7) Ventricular arrhythmia Current Visit: Yes Status: Acute Assessment and Plan: -Trasnitionedto PO amiodarone, pt declining ischemic eval for now -Continue bb -Monitor electrolytes (8) Community acquired bacterial pneumonia Current Visit: Yes Status: Acute Assessment and Plan: -WBC improving -Cont ceftriaoxne and azithromnycin - Time Spent with Patient Total time spent is greater than 50% in coordination of care (as documented) at patient's floor/unit and/or counseling patient: Internal Medicine: Result - Labs CBC & Chem 7: 05/11/19 04:24 05/11/19 04:24 Labs: Short CBC 05/11/19 Range/Units 04:24 WBC 7.2 (4.3-11.1) K/mcL Hgb 11.2 L (11.5-15.4) g/dL Hct 34.3 L (35.3-44.9) % Plt Count 204 (140-400) K/mcL Neutrophils # 4.5 (1.6-8.9) K/mcL BMP 05/11/19 04:24 Sodium 134 L Potassium 3.7 Chloride 96 L Carbon Dioxide 27 BUN 83 H Creatinine 2.28 H Glucose 106 H Calcium 8.5 L - ABG Interpretation ABG results: PT/INR, D-dimer PT 11.7 Seconds (9.4-12.1) 05/11/19 04:24 - Impressions Impressions Retroperitoneum Ultrasound 05/10/19 17:30 IMPRESSION: Unremarkable ultrasound of the kidneys and urinary bladder. D/ / 05/10/2019 21:17:12 Vanessa Abdi MD / shelby Interpreting Provider: Vanessa Abdi MD Chest X-Ray 05/11/19 09:50 IMPRESSION: 1. Congestive failure with small bilateral pleural effusions with lower lobe atelectasis. D/ / Torey Connelly MD / Torey Connelly MD Interpreting Provider: Torey Connelly MD Consult Discharge Plan - Plan Referrals: NONE,PCP [Primary Care Provider] - (4) CAD (coronary artery disease) Qualifiers: Coronary Disease-Associated Artery/Lesion type: [place] artery [place] vs. transplanted heart: [place] heart Associated angina: with unstable angina Qualified Code(s): I25.110 - Atherosclerotic heart disease of [place] coronary artery with unstable angina pectoris
[2019-05-11] MEDS: *HR* Heparin 5,000 UNIT/ML VIAL SQ SCH (20:26)
[2019-05-11] MEDS: Famotidine 20 MG TABLET PO SCH (20:26)
[2019-05-12 01:55] LABS: Basophils % 0.3 %; Eosinophils # 0.3 K/mcL (0.0-0.6); Eosinophils % 4.4 %; Hematocrit 34.8 % (35.3-44.9); Hemoglobin 11.6 g/dL (11.5-15.4); Immature Granulocytes % 0.4 % (0-4); Lymphocytes # 1.7 K/mcL (0.6-4.6); Mean Corpuscular HGB Conc 33.3 g/dL (31.6-35.5); Mean Corpuscular Hemoglobin 32.7 pg (28.0-33.3); Mean Platelet Volume 8.9 fL (9.4-12.4); Monocytes # 1.1 K/mcL (0.0-1.3); Monocytes % 16.2 %; Neutrophils # 3.7 K/mcL (1.6-8.9); Platelet Count 209 K/mcL (140-400); Red Blood Count 3.55 M/mcL (3.82-4.97); Red Cell Distribution Width 14.6 % (11.5-14.5); Segmented Neutrophils % 53.7 %; White Blood Count 6.8 K/mcL (4.3-11.1)
[2019-05-12 02:14] LABS: INR 1.1; Prothrombin Time 12.6 Seconds (9.4-12.1)
[2019-05-12 02:16] LABS: Calcium 8.4 mg/dL (8.6-10.3); Magnesium 2.3 mg/dL (1.6-2.6); Phosphorous 4.1 mg/dL (2.7-4.5); Potassium 3.8 mEq/L (3.5-5.1)
[2019-05-12] MEDS: *HR* Heparin 5,000 UNIT/ML VIAL SQ SCH (06:07)
[2019-05-12] MEDS: Azithromycin 500 MG in D5% in Water 250 ML IVPB SCH (06:08)
[2019-05-12] MEDS: *HR* HYDROcodone/Acet 5/325 mg TABLET PO PRN ×3 (09:29→21:45)
[2019-05-12] MEDS: Aspirin Enteric Coated 81 MG Tablet PO SCH (09:30)
[2019-05-12] MEDS: cefTRIAXone 1,000 MG in Water for inj. (sterile) 10 ML IVP SCH (09:30)
[2019-05-12] MEDS: Multivit/Ca/Min/Fe/FA 1 TAB TABLET PO SCH (09:30)
[2019-05-12] MEDS: *HR* Amiodarone 200 MG TABLET PO SCH ×2 (09:30→20:34)
--- NOTE | 2019-05-12 09:50 | Event Note ---
Date of Encounter: 05/12/19 Time of Encounter: 09:20 Patient up in chair - pleasant and talkative. Back on Nicola at present. No complaints of respiratory distress. She does have some arthritic discomfort - notified nurse to get her pain medication. Rowan NICOLE at bedside. They request meeting tomorrow at 1100 to f/u on goals of care discussion prior to Stalin leaving for [place]. Will plan meeting tomorrow.
--- NOTE | 2019-05-12 12:54 | Internal Med Progress Note ---
Hospitalist Progress Note - Encounter Date of Encounter: 05/12/19 Time of Encounter: 11:15 - Subjective Interval History: Is comfortbaly sitting in chair. looking better than yesterday. Still on 10 L of O2. Denies any chest pain, SOB. Denies fever, chills, rigors. No overnight events. - Exam Vitals: Temp Pulse Resp BP Pulse Ox 98.0 F 113 17 102/65 93 05/12/19 11:31 05/12/19 11:05/12/19 11:05/12/19 11:05/12/19 11:31 Exam: General: Alert and oriented, no physical distress, able to follow commands. Eyes: No discharge. Respiratory: Lungs clear to asuculation today. Respirations noraml,no additional breath sounds. CVS: Normal heart sounds, no murmurs, no edema. Mldly tadchycardic with the HR in 90s. Extremities: No peripheral edema, peripheral pulses intact. Lymph nodes: No lymphadenopathy Gastrointestinal: Soft, nontender abdomen, normal abdominal sounds. No distention noted. Genitourinary: No paravertebral tenderness. Neurological: Alert and oriented. No focal deficits. Cranial nerves II-XII intact. - Assessment and Plan (1) Acute respiratory failure with hypoxia Current Visit: Yes Status: Acute Assessment and Plan: -Etiolgoy likley secondary to PNA with probable fluid overload. -Echocardiogram showed EF 50-55%. Also has moderate pHTN with dilated/hypokinetic RV as well as mod-severe TR. -Was on BPAP previously but on xygen mask now, saturating in mid 90s. -Was on lasix whihc was held due to worsenig kidney functions. -Urine output has increased since morning -continue IV Yeyo/Azithromycin (D4) -PE is low probabaility and beacaue of the other explaining factors, we will hold testing for PE now. (2) DVT prophylaxis Current Visit: Yes Status: Acute Assessment and Plan: -SubQ heparin (3) NSTEMI (non-ST elevated myocardial infarction) Current Visit: Yes Status: Acute Assessment and Plan: -Troponin elevation with 0.15 -ALso had wide complex tachycardia on the day of presentation requiring amiod arone -Hep gtt has been stopeed as the pt got it for 3 days -continue ASA, statin, bb -COnsdering comorbidites, and pt wishes, no plan for thr LHC. -Cardiolgoy on board, appreicate recommendations (4) CAD (coronary artery disease) Current Visit: No Status: Chronic Assessment and Plan: -Continue home meds (5) Acute kidney injury Current Visit: Yes Status: Acute Assessment and Plan: -Etiolgoy unclear. Could be ATN -Kidney functions improved a little bit today, -Lasix on hold -Npehro on board -Will defer the lasix dosing to nephro (6) Acute decompensated heart failure Current Visit: Yes Status: Acute Assessment and Plan: -EF 50-55% -Was on lasix which was held 2/2 worsening Cr. -Pt is overall improving. -Diuretic maagement as per nephro - (7) Ventricular arrhythmia Current Visit: Yes Status: Acute Assessment and Plan: -Trasnitionedto PO amiodarone, pt declining ischemic eval for now -Continue bb -Monitor electrolytes (8) Community acquired bacterial pneumonia Current Visit: Yes Status: Acute Assessment and Plan: -WBC improving -Cont ceftriaoxne and azithromnycin(d4) - Time Spent with Patient Total time spent is greater than 50% in coordination of care (as documented) at patient's floor/unit and/or counseling patient: Internal Medicine: Result - Labs CBC & Chem 7: 05/12/19 01:42 05/12/19 01:42 Labs: Short CBC 05/12/19 Range/Units 01:42 WBC 6.8 (4.3-11.1) K/mcL Hgb 11.6 (11.5-15.4) g/dL Hct 34.8 L (35.3-44.9) % Plt Count 209 (140-400) K/mcL Neutrophils # 3.7 (1.6-8.9) K/mcL BMP 05/12/19 01:42 Sodium 132 L Potassium 3.8 Chloride 97 L Carbon Dioxide 26 BUN 78 H Creatinine 2.17 H Glucose 117 H Calcium 8.4 L - ABG Interpretation ABG results: PT/INR, D-dimer PT 12.6 Seconds (9.4-12.1) H 05/12/19 01:42 Consult Discharge Plan - Plan Referrals: NONE,PCP [Primary Care Provider] - (4) CAD (coronary artery disease) Qualifiers: Coronary Disease-Associated Artery/Lesion type: [place] artery [place] vs. transplanted heart: [place] heart Associated angina: with unstable angina Qualified Code(s): I25.110 - Atherosclerotic heart disease of [place] coronary artery with unstable angina pectoris
--- NOTE | 2019-05-12 14:47 | Nephrology Progress Note ---
Date of Encounter: 05/12/19 Time of Encounter: 09:55 - Assessment and Plan (1) Acute kidney injury Current Visit: Yes Status: Acute Nonoliguric acute kidney injury with multifactorial etiology. She had required significant diuretics earlier in this hospitalization, and then her serum creatinine started to rise. Also, the hemodynamic changes from her A. fib may have contributed to the acute kidney injury. She does not have uremic symptoms at this time, so I do not recommend initiation of renal replacement therapy. Continue to hold diuretics if able, however she is likely going to need resumption of diuretics at some point. In the meantime, continue to follow a renal protective/conservative strategy by avoiding nephrotoxic agents as able, strict I's and O's, daily weights, renal dosing. My colleague Dr. Schroeder will be supervisor concrete pipe plant tomorrow, and I will provide a thorough handoff. Thank you. (2) CKD (chronic kidney disease), stage III Current Visit: Yes Status: Acute Baseline CKD stage III noted on her labs. (3) Hypokalemia Current Visit: Yes Status: Acute S/p diuretics. Will monitor. (4) Hyponatremia Current Visit: Yes Status: Acute Asymptomatic, and will monitor. I would not recommend initiation of salt tablets at this time. (5) Acute decompensated heart failure Current Visit: Yes Status: Acute As per primary. Her pulmonary status as per primary. Subjective Principal diagnosis: Short of breath, elevated troponin Interval history: The patient was seen and examined earlier today. She reported feeling more comfortable with her breathing today. She did not affirm chest pain or nausea, vomiting, or diarrhea. She is trying to eat more, and said that her appetite is returning. Objective - Vital Signs Vital signs: Vital Signs Temp Pulse Resp BP Pulse Ox 05/12/19 11:31 98.0 F 113 17 102/65 93 05/12/19 08:00 101 05/12/19 07:34 98.3 F 106 18 110/64 94 05/12/19 05:05 98.2 F 103 14 116/79 95 05/12/19 04:31 12 92 05/11/19 23:56 22 91 05/11/19 22:41 97.9 F 96 19 139/75 90 05/11/19 19:38 103 05/11/19 18:51 97.8 F 98 19 110/71 95 05/11/19 16:29 98.3 F 94 18 114/70 93 05/11/19 15:15 94 05/11/19 15:06 103 Intake and Output 05/11/19 05/12/19 05/12/19 23:59 07:59 15:59 Intake Total 360 / 860 370 / 860 490 / 860 Output Total 80 / 430 550 / 800 250 / 800 Balance 280 / 430 -180 / 60 240 / 60 Intake: IV Fluids 250 / 260 10 / 260 Rocephin 1,000 MG In Water for inj. (sterile) 10 ML @ 600 mls/ hr IVP DAILY [facility] Rx#:[id number] Zithromax 500 MG In Dextrose 5% 250 / 250 250 ML @ 252 mls/hr IVPB Q24H [facility] Rx#:[id number] Oral 360 / 600 120 / 600 480 / 600 Output: Urine 80 / 330 550 / 800 250 / 800 Other: Meal Dinner Lunch Percent of Meal Consumed 95% 95% Stool Size Small Stool Consistency soft formed Stool Color Brown # Voids 1 # Urine Diapers 1 # Bowel Movements 1 - General Appearance Exam: General appearance: well-developed, well-nourished, fatigue EENT: ATNC, PERRL, mucous membranes moist Additional Comments: Using nasal high flow O2, which was being converted to Nasal canula by her floor RN during my interview/exam Neck: no JVD, supple Respiratory: clear anteriorly Cardiology: puffy non pitting ankle edema bilaterally, iRRR, normal S1, normal S2 Gastrointestinal: normoactive bowel sounds, no tenderness, no guarding Integumentary: warm and dry, ecchymotic Neurologic: no focal deficit, no asterixis, alert and oriented x3 Musculoskeletal: no cyanosis, no clubbing Psychiatric: mood/affect appropriate, cooperative - Lab 05/13/19 04:17 05/13/19 04:17 Consult Discharge Plan - Plan Referrals: Naman Harper MD [Partnered Physician] - 05/19/19 1:30 pm
--- NOTE | 2019-05-12 15:28 | Cardiology Progress Note ---
Date of Encounter: 05/12/19 Time of Encounter: 10:30 Assessment and Plan (1) Acute respiratory failure with hypoxia Current Visit: Yes Status: Acute Per Cardiology: -CXR 05/09: bilateral pleural effusions and patchy lung base consolidation which may represent superimposed congestive heart failure. -BNP was in the 900s. Was on IV Lasix 20 mg IV daily. Net I&O -517ml. Iv lasix now held in the setting of ANA MARÍA. -Volume overloaded on exam. -ON high flow O2, not normally on O2 at home. -On strict I&O and daily weights. -Appreciate nephrology input and assistance. (2) CHF (congestive heart failure) Current Visit: Yes Status: Acute Per cardiology: -Acute diastolic CHF. -Remains volume overloaded on exam, however diuretics held in the setting of ANA MARÍA. -TTE with LVEF 50-55%, no visualized segmental wall motion abnormalities noted. -Requiring high flow O2, not normally on O2 at home. -Strict i/os, fluid restriction, daily weights. -Will continue to monitor. Qualifiers: Heart failure type: diastolic Heart failure chronicity: acute Qualified Code(s): I50.31 - Acute diastolic (congestive) heart failure (3) Wide-complex tachycardia Current Visit: Yes Status: Acute Per Cardiology: -ECGs and strips reviewed with Dr. Vences, felt to be slow VT. -Had been on IV amio, then transitioned to PO. On PO amio 400mg PO BID for now. -On BB. INtermittent wide complex tachcyardia noted, non-sustained. -BB was increased yesterday, no recurrence of slow VT overnight. -Keep K>4, Mg >2. -Recommend LHC, however worsening ANA MARÍA and patient declines inpatient cath for now. Discussed risk of no LHC with patient, patient states understanding and states she does not wish to proceed with LHC at this time. (4) PAF (paroxysmal atrial fibrillation) Current Visit: Yes Status: Acute Per Cardiology: -Strips reviewed and has evidence of PAF as well. Has known hx of PAF. On BB and amio. -Average HR previous 12 hours noted to be 101, a.fib. -Was on heparin drip, however was stopped. -Regarding long-term anticoagulation, will resume heparin drip. Patient has declined long-term anticoagulation in the past, however now states she would be agreeable. Will determine watermaster anticoagulation pending clinical coarse. (5) Acute kidney injury Current Visit: Yes Status: Acute Per Cardiology: -Presented with ANA MARÍA, slightly improved today. -Appreciate nephrology assistance. Discussion w patient/family: The assessment and plan as outlined above was discussed with the patient who expressed understanding and agreement. All questions were answered. Thank you for involving us in the care of your patient. Please call with any questions. Discussed and reviewed with . Subjective Principal diagnosis: Short of breath, elevated troponin Interval history: Patient denies chest pain. Reports shortness of breath is improved. Denies palpitations/fluttering. Denies dizziness, lightheadedness, syncope, or near syncope. Objective Vital Signs, Last 4 Hours Temp Pulse Resp BP Pulse Ox 05/12/19 11:31 98.0 F 113 17 102/65 93 General: Conversant, Other (Mild conversational dyspnea. ) HEENT: Atraumatic, Normocephaly, Mucus Membranes Moist Neck: No JVD, Normal carotid pulses Cardiac: Normal S1 and S2, No Murmur, Other (Irregularly irregular) Lungs: Other (Lung sounds diminished throughout. ) Neuro: Alert and responsive, No focal deficits noted Abdomen: Soft, Non-Tender Skin: No rashes noted on visualized skin Musculoskeletal: No Chest Wall Tenderness Extremities: No Clubbing, No Cyanosis, Normal Pulses, Other (Bilateral lower extremity edema noted. ) Results 05/12/19 01:42 05/12/19 01:42 Lab Results Active Medications Hydrocodone Bitart/Acetaminophen ([place] 5-325 Mg) 1 tab PO TID PRN PRN Reason: Pain Stop: 11/09/19 12:07 Last Admin: 05/12/19 09:29 Dose: 1 tab Documented by: Amiodarone HCl (Cordarone) 400 mg PO BID [facility] Stop: 11/09/19 10:12 Last Admin: 05/12/19 09:30 Dose: 400 mg Documented by: Aspirin (Aspirin Ec) 81 mg PO DAILY [facility] Stop: 11/08/19 09:01 Last Admin: 05/12/19 09:30 Dose: 81 mg Documented by: Atorvastatin Calcium (Lipitor) 40 mg PO HS [facility] Stop: 11/08/19 21:01 Last Admin: 05/11/19 20:27 Dose: 40 mg Documented by: Calcium Carbonate (Tums) 500 mg PO DAILY [facility] Stop: 11/08/19 15:23 Last Admin: 05/12/19 09:30 Dose: 500 mg Documented by: Clopidogrel Bisulfate (Plavix) 75 mg PO QAM [facility] Stop: 11/08/19 15:23 Last Admin: 05/12/19 09:30 Dose: 75 mg Documented by: Famotidine (Pepcid) 10 mg PO HS [facility]; Protocol Stop: 11/10/19 21:01 Last Admin: 05/11/19 20:26 Dose: 10 mg Documented by: Heparin Sodium (Porcine) (Heparin) 5,000 unit SQ Q12HCO [facility] Stop: 11/10/19 18:16 Last Admin: 05/12/19 06:07 Dose: 5,000 unit Documented by: Azithromycin 500 mg/ Dextrose 250 mls @ 252 mls/hr IVPB Q24H [facility] Stop: 11/08/19 07:01 Last Infusion: 05/12/19 07:10 Dose: Infused Documented by: Ceftriaxone Sodium 1,000 mg/ (Sterile Water) 10 mls @ 600 mls/hr IVP DAILY [facility] Stop: 11/09/19 09:01 Last Infusion: 05/12/19 09:32 Dose: Infused Documented by: Levothyroxine Sodium (Synthroid) 125 mcg PO 0630 [facility] Stop: 11/09/19 06:31 Last Admin: 05/12/19 06:08 Dose: 125 mcg Documented by: Metoprolol Tartrate (Lopressor) 25 mg PO BID [facility] Stop: 11/10/19 21:01 Last Admin: 05/12/19 09:30 Dose: 25 mg Documented by: Multivitamins/Calcium (Thera M Plus) 1 tab PO DAILY [facility] Stop: 11/08/19 15:23 Last Admin: 05/12/19 09:30 Dose: 1 tab Documented by: Naloxone HCl (Narcan) 0.4 mg IVP Q2MPRN PRN PRN Reason: SEE COMMENTS Stop: 11/07/19 02:36 Prochlorperazine Edisylate (Compazine) 10 mg IVP Q6HR PRN PRN Reason: Nausea Stop: 11/09/19 10:31 Last Admin: 05/11/19 01:18 Dose: 10 mg Documented by: Laboratory Tests 05/11/19 05/12/19 05/12/19 04:24 01:42 01:42 Hgb 11.6 Creatinine 2.28 H 2.17 H - Imaging and Cardiology Chest Xray: report reviewed Echo: report reviewed - EKG Interpretation EKG results cardiology: other (Telemetry reviewed with average HR previous 12 hours noted to be 101, a.fib. PVCs noted.) Consult Discharge Plan - Plan Referrals: NONE,PCP [Primary Care Provider] -
[2019-05-12] MEDS ORDERED: *HR* Heparin 5,000 UNIT/ML VIAL IVP ONE (15:35)
[2019-05-12] MEDS ORDERED: *HR* Heparin 5,000 UNIT/ML VIAL IVP PRN ×2 (15:35)
[2019-05-12 16:04] LABS: Hematocrit 36.4 % (35.3-44.9); Hemoglobin 12.1 g/dL (11.5-15.4); Mean Corpuscular HGB Conc 33.2 g/dL (31.6-35.5); Mean Corpuscular Hemoglobin 32.4 pg (28.0-33.3); Mean Corpuscular Volume 97.6 fL (83.0-100.0); Mean Platelet Volume 9.1 fL (9.4-12.4); Platelet Count 219 K/mcL (140-400); Red Blood Count 3.73 M/mcL (3.82-4.97); Red Cell Distribution Width 14.9 % (11.5-14.5); White Blood Count 7.1 K/mcL (4.3-11.1)
[2019-05-12 16:12] LABS: Prothrombin Time 11.7 Seconds (9.4-12.1)
[2019-05-12] MEDS: Heparin 25,000 UNIT/250 ML D5W 25,000 UNIT/250 ML IV.SOLN IVC SCH (16:12)
[2019-05-12] MEDS: Famotidine 20 MG TABLET PO SCH (20:35)
[2019-05-12] MEDS: Prochlorperazine 10 MG/2 ML VIAL IVP PRN (21:44)
[2019-05-13 04:36] LABS: Basophils % 0.6 %; Eosinophils # 0.7 K/mcL (0.0-0.6); Eosinophils % 9.3 %; Hematocrit 34.2 % (35.3-44.9); Hemoglobin 11.1 g/dL (11.5-15.4); Immature Granulocytes % 0.4 % (0-4); Lymphocytes # 1.9 K/mcL (0.6-4.6); Lymphocytes % 26.9 %; Mean Corpuscular HGB Conc 32.5 g/dL (31.6-35.5); Mean Corpuscular Hemoglobin 31.6 pg (28.0-33.3); Mean Corpuscular Volume 97.4 fL (83.0-100.0); Mean Platelet Volume 9.1 fL (9.4-12.4); Monocytes # 1.1 K/mcL (0.0-1.3); Monocytes % 16.3 %; Neutrophils # 3.3 K/mcL (1.6-8.9); Platelet Count 202 K/mcL (140-400); Red Blood Count 3.51 M/mcL (3.82-4.97); Red Cell Distribution Width 14.8 % (11.5-14.5); Segmented Neutrophils % 46.5 %
[2019-05-13 04:51] LABS: Calcium 8.6 mg/dL (8.6-10.3); Magnesium 2.5 mg/dL (1.6-2.6); Potassium 3.9 mEq/L (3.5-5.1)
[2019-05-13 05:04] LABS: Kappa Qnt Free Light Chains 3.7 mg/dL (0.33-1.94); Lambda Qnt Free Light Chains 2.55 mg/dL (0.57-2.63)
[2019-05-13] MEDS: Azithromycin 500 MG in D5% in Water 250 ML IVPB SCH (06:32)
[2019-05-13] MEDS: cefTRIAXone 1,000 MG in Water for inj. (sterile) 10 ML IVP SCH (07:55)
[2019-05-13] MEDS: Aspirin Enteric Coated 81 MG Tablet PO SCH (07:55)
[2019-05-13] MEDS: *HR* Amiodarone 200 MG TABLET PO SCH ×2 (07:55→20:25)
[2019-05-13] MEDS: Multivit/Ca/Min/Fe/FA 1 TAB TABLET PO SCH (07:55)
[2019-05-13] MEDS: *HR* HYDROcodone/Acet 5/325 mg TABLET PO PRN ×3 (07:57→21:56)
[2019-05-13] MEDS: Heparin 25,000 UNIT/250 ML D5W 25,000 UNIT/250 ML IV.SOLN IVC SCH (12:33)
[2019-05-13] MEDS ORDERED: Ipratropium/Albuterol Neb 3 ML IH PRN (12:39)
--- NOTE | 2019-05-13 12:41 | Internal Med Progress Note ---
Hospitalist Progress Note - Encounter Date of Encounter: 05/13/19 Time of Encounter: 11:30 - Subjective Interval History: Seen at bedside. Feeling better than yesterday.Oygen requiremtns improved. Currently on2L saturating in the mid 90s. Deneis any cough, or SOB, denie feve, chills, rigors. Overall feeling better, - Exam Vitals: Temp Pulse Resp BP Pulse Ox 97.8 F 92 18 126/84 93 05/13/19 11:10 05/13/19 11:10 05/13/19 11:10 05/13/19 11:10 05/13/19 11:10 Exam: General: Alert and oriented, no physical distress, able to follow commands. Respiratory: Lungs clear to asuculation today. Respirations noraml,no additional breath sounds. CVS: Normal heart sounds, no murmurs, no edema. Mldly tadchycardic with the HR in 90s. Extremities: No peripheral edema, peripheral pulses intact. Lymph nodes: No lymphadenopathy Gastrointestinal: Soft, nontender abdomen, normal abdominal sounds. No distention noted. Neurological: Alert and oriented. No focal deficits. Cranial nerves II-XII intact. - Assessment and Plan (1) Acute respiratory failure with hypoxia Current Visit: Yes Status: Acute Assessment and Plan: -Etiolgoy likley secondary to PNA with probable fluid overload. -Echocardiogram showed EF 50-55%. Also has moderate pHTN with dilated/hypokinetic RV as well as mod-severe TR. -Was on BPAP previously but on xygen mask now, saturating in mid 90s on 2-3L -Was on lasix whihc was held due to worsenig kidney functions. -Urine output has been increasing -continue IV Yeyo/Azithromycin (D4) -PE is low probabaility and beacaue of the other explaining factors, we will hold testing for PE now. (2) PAF (paroxysmal atrial fibrillation) Current Visit: Yes Status: Acute Assessment and Plan: -Hx of atrial fibrillation, was not on AC in the past. -After discusson with the cardiolgoy, pt wants to proceed with the AC but she oe s not want coumadin -After discussion, pt will be started on eliquis, renally dosed,depending upon a ge and kidney functions, we will go with 2.5 mg BID -Pt is currently on aspirin and plavix for CAD, we will stop aspirin and continue plavix. -Cardiolgoy on baord, appreciate recommendations (3) NSTEMI (non-ST elevated myocardial infarction) Current Visit: Yes Status: Acute Assessment and Plan: -Troponin elevation with 0.15 -ALso had wide complex tachycardia on the day of presentation requiring amiod arone -Hep gtt has been stopeed as the pt got it for 3 days -continue plavix, statin, bb -COnsdering comorbidites, and pt wishes, no plan for thr LH. -Cardiolgoy on board, appreicate recommendations (4) DVT prophylaxis Current Visit: Yes Status: Acute Assessment and Plan: -on heparin drip (5) Acute kidney injury Current Visit: Yes Status: Acute Assessment and Plan: -Etiolgoy unclear. Could be ATN -Kidney functions improved a little bit today, -Lasix on hold -Npehro on board -Will defer the lasix dosing to nephro (6) CAD (coronary artery disease) Current Visit: No Status: Chronic Assessment and Plan: -Continue home meds (7) Acute decompensated heart failure Current Visit: Yes Status: Acute Assessment and Plan: -EF 50-55% -Was on lasix which was held 2/2 worsening Cr. -Pt is overall improving. -Diuretic maagement as per nephro - (8) Ventricular arrhythmia Current Visit: Yes Status: Acute Assessment and Plan: -Trasnitionedto PO amiodarone, pt declining ischemic eval for now -Continue bb -Monitor electrolytes (9) Community acquired bacterial pneumonia Current Visit: Yes Status: Acute Assessment and Plan: -WBC improving -Cont ceftriaoxne and azithromnycin(d4) - Time Spent with Patient Total time spent is greater than 50% in coordination of care (as documented) at patient's floor/unit and/or counseling patient: Internal Medicine: Result - Labs CBC & Chem 7: 05/13/19 04:17 05/13/19 04:17 Labs: Short CBC 05/12/19 05/13/19 Range/Units 15:47 04:17 WBC 7.1 7.0 (4.3-11.1) K/mcL Hgb 12.1 11.1 L (11.5-15.4) g/dL Hct 36.4 34.2 L (35.3-44.9) % Plt Count 219 202 (140-400) K/mcL Neutrophils # 3.3 (1.6-8.9) K/mcL BMP 05/13/19 04:17 Sodium 140 Potassium 3.9 Chloride 91 L Carbon Dioxide 30 H BUN 81 H Creatinine 2.39 H Glucose 113 H Calcium 8.6 - ABG Interpretation ABG results: PT/INR, D-dimer PT 11.7 Seconds (9.4-12.1) 05/12/19 15:47 Consult Discharge Plan - Plan Referrals: Naman Harper MD [Partnered Physician] - 05/19/19 1:30 pm (6) CAD (coronary artery disease) Qualifiers: Coronary Disease-Associated Artery/Lesion type: [place] artery [place] vs. transplanted heart: [place] heart Associated angina: with unstable angina Qualified Code(s): I25.110 - Atherosclerotic heart disease of [place] coronary artery with unstable angina pectoris
--- NOTE | 2019-05-13 12:41 | Event Note ---
Date of Encounter: 05/13/19 Time of Encounter: 11:45 Patient stable this am - oxygen has been titrated down to 2L, however, she is quite short of breath on my arrival and turned up to 4 LPM. Nephew StalinCOREY, and his Betty at bedside. They will be leaving for [place] Thursday and gone for a week. Discussed current clinical status, med treatment, and labs. They had questions regarding plan for anticoagulation, as patient stating she does not want to be on Coumandin - reached out to Cardiology and they will discuss at their visit. Patient still desires full aggressive treatment and rehab, however, if she would become critically ill again, and unable to wean off vent, does not want correction life support. Her goal remains to go to rehab with the hopes of returning home. D/W JHONATAN Pacheco. Family numbers where they can be reached while out of town: Stalin NICOLE [phone] Betty niece [phone] Corine hayes niece [phone] Palliative will f/u Thursday. D/W Dr. Lucrecia Damon pt will remain here over weekend and tent wi Thursday pending placement.
--- NOTE | 2019-05-13 14:19 | Cardiology Progress Note ---
Date of Encounter: 05/13/19 Time of Encounter: 12:30 Assessment and Plan (1) Acute respiratory failure with hypoxia Current Visit: Yes Status: Acute Per Cardiology: -CXR 05/09: bilateral pleural effusions and patchy lung base consolidation which may represent superimposed congestive heart failure. -BNP was in the 900s. Was on IV Lasix 20 mg IV daily. Net I&O +246ml. Iv lasix now held in the setting of ANA MARÍA. -Volume overloaded on exam. -ON nasal cannula O2, not normally on O2 at home. -On strict I&O and daily weights. -Appreciate nephrology input and assistance. (2) CHF (congestive heart failure) Current Visit: Yes Status: Acute Per cardiology: -Acute diastolic CHF. -Remains volume overloaded on exam, however diuretics held in the setting of ANA MARÍA. -TTE with LVEF 50-55%, no visualized segmental wall motion abnormalities noted. -Requiring O2, not normally on O2 at home. -Strict i/os, fluid restriction, daily weights. -Will continue to monitor. Qualifiers: Heart failure type: diastolic Heart failure chronicity: acute Qualified Code(s): I50.31 - Acute diastolic (congestive) heart failure (3) Wide-complex tachycardia Current Visit: Yes Status: Acute Per Cardiology: -ECGs and strips reviewed with Dr. Vences, felt to be slow VT. -Had been on IV amio, then transitioned to PO. On PO amio 400mg PO BID for now. -On BB. INtermittent wide complex tachcyardia noted, non-sustained. -BB was increased, no recurrence of slow VT overnight. -Keep K>4, Mg >2. -Recommend LHC, however worsening ANA MARÍA and patient declines inpatient cath for now. Discussed risk of no LHC with patient, patient states understanding and states she does not wish to proceed with LHC at this time. (4) PAF (paroxysmal atrial fibrillation) Current Visit: Yes Status: Acute Per Cardiology: -Strips reviewed and has evidence of PAF as well. Has known hx of PAF. On BB and amio. -Average HR previous 12 hours noted to be 98, a.fib. -Was on heparin drip. -Discussed risks versus benefits of anticoagulation at length with patient and family. Patient is agreeable for NOAC. Will start eliquis 2.5mg BID (age >80, creatining >1.5). (5) Acute kidney injury Current Visit: Yes Status: Acute Per Cardiology: -Presented with ANA MARÍA, slightly improved today. -Appreciate nephrology assistance. Discussion w patient/family: The assessment and plan as outlined above was discussed with the patient and family who expressed understanding and agreement. All questions were answered. Thank you for involving us in the care of your patient. Please call with any questions. Discussed and reviewed with . Subjective Principal diagnosis: Short of breath, elevated troponin Interval history: Patient denies chest pain. Reports shortness of breath is improved. Currently on nasal cannula. Family at bedside. Objective Vital Signs, Last 4 Hours Temp Pulse Resp BP Pulse Ox 05/13/19 11:10 97.8 F 92 18 126/84 93 General: Conversant, No Apparent Distress HEENT: Atraumatic, Normocephaly, Mucus Membranes Moist Neck: No JVD, Normal carotid pulses Cardiac: Reg Rate and Rhythm, Normal S1 and S2, No Murmur Lungs: Normal Breath Sounds, No Wheeze, Rales, Rhonchi Neuro: Alert and responsive, No focal deficits noted Abdomen: Soft, Non-Tender Skin: No rashes noted on visualized skin Musculoskeletal: No Chest Wall Tenderness Extremities: No Clubbing, No Cyanosis, No Edema, Normal Pulses Results 05/13/19 04:17 05/13/19 04:17 Lab Results Active Medications Hydrocodone Bitart/Acetaminophen ([place] 5-325 Mg) 1 tab PO TID PRN PRN Reason: Pain Stop: 11/09/19 12:07 Last Admin: 05/13/19 07:57 Dose: 1 tab Documented by: Albuterol/Ipratropium (Duoneb) 3 ml IH [id number] PRN PRN Reason: Shortness Of Breath/Wheezing Stop: 11/12/19 12:40 Amiodarone HCl (Cordarone) 400 mg PO BID [facility] Stop: 11/09/19 10:12 Last Admin: 05/13/19 07:55 Dose: 400 mg Documented by: Apixaban (Eliquis) 2.5 mg PO BID [facility] Stop: 11/12/19 21:01 Atorvastatin Calcium (Lipitor) 40 mg PO HS [facility] Stop: 11/08/19 21:01 Last Admin: 05/12/19 20:34 Dose: 40 mg Documented by: Calcium Carbonate (Tums) 500 mg PO DAILY [facility] Stop: 11/08/19 15:23 Last Admin: 05/13/19 07:55 Dose: 500 mg Documented by: Clopidogrel Bisulfate (Plavix) 75 mg PO QAM [facility] Stop: 11/08/19 15:23 Last Admin: 05/13/19 07:55 Dose: 75 mg Documented by: Famotidine (Pepcid) 10 mg PO HS [facility]; Protocol Stop: 11/10/19 21:01 Last Admin: 05/12/19 20:35 Dose: 10 mg Documented by: Azithromycin 500 mg/ Dextrose 250 mls @ 252 mls/hr IVPB Q24H [facility] Stop: 11/08/19 07:01 Last Admin: 05/13/19 06:32 Dose: 250 mls/hr Documented by: Ceftriaxone Sodium 1,000 mg/ (Sterile Water) 10 mls @ 600 mls/hr IVP DAILY [facility] Stop: 11/09/19 09:01 Last Admin: 05/13/19 07:55 Dose: 20 mls/hr Documented by: Heparin Sodium/Dextrose (Heparin 25,000 Unit/250 Ml D5w) 25,000 unit in 250 mls @ 12.516 mls/hr IVC .[id number] [facility]; Protocol Stop: 05/13/19 21:00 Last Admin: 05/13/19 12:33 Dose: 11 unit/kg/hr, 9.8 mls/hr Documented by: Levothyroxine Sodium (Synthroid) 125 mcg PO 0630 [facility] Stop: 11/09/19 06:31 Last Admin: 05/13/19 06:31 Dose: 125 mcg Documented by: Metoprolol Tartrate (Lopressor) 25 mg PO BID [facility] Stop: 11/10/19 21:01 Last Admin: 05/13/19 07:55 Dose: 25 mg Documented by: Multivitamins/Calcium (Thera M Plus) 1 tab PO DAILY [facility] Stop: 11/08/19 15:23 Last Admin: 05/13/19 07:55 Dose: 1 tab Documented by: Naloxone HCl (Narcan) 0.4 mg IVP Q2MPRN PRN PRN Reason: SEE COMMENTS Stop: 11/07/19 02:36 Prochlorperazine Edisylate (Compazine) 10 mg IVP Q6HR PRN PRN Reason: Nausea Stop: 11/09/19 10:31 Last Admin: 05/12/19 21:44 Dose: 10 mg Documented by: Laboratory Tests 05/12/19 05/13/19 05/13/19 01:42 04:17 04:17 Hgb 11.1 L Creatinine 2.17 H 2.39 H - Imaging and Cardiology Chest Xray: report reviewed Echo: report reviewed - EKG Interpretation EKG results cardiology: other (Telemetry reviewed with average HR previous 12 hours noted to be 98, a.fib. PVCs noted.) Consult Discharge Plan - Plan Referrals: Naman Harper MD [Partnered Physician] - 05/19/19 1:30 pm
[2019-05-13 17:16] LABS: Alpha 2 Globulin (PEP) 0.82 g/dL (0.48-1.05)
--- NOTE | 2019-05-13 18:13 | Nephrology Progress Note ---
Date of Encounter: 05/13/19 Time of Encounter: 16:00 - Assessment and Plan (1) Acute kidney injury Current Visit: Yes Status: Acute Scr slightly worse at 2.39, GFr 19 off diuretics, will monitor UOP noted at 1300cc in the past 24hrs which is quite good for her Continue to avoid nephrotoxins if possible Po fluids in limited quantities only No acute inidcation for [employer] at this time but pt aware of the severity of renal condition (2) Acute decompensated heart failure Current Visit: Yes Status: Acute (3) CKD (chronic kidney disease), stage III Current Visit: Yes Status: Acute (4) Hypokalemia Current Visit: Yes Status: Acute (5) Hyponatremia Current Visit: Yes Status: Acute Subjective Principal diagnosis: Short of breath, elevated troponin Interval history: Interim noted, pt seen and examined doing well with no new complaints but anxious about her kidneys. No SOB on 2liter NC oxygen Objective - Vital Signs Vital signs: Vital Signs Temp Pulse Resp BP Pulse Ox 05/13/19 11:10 97.8 F 92 18 126/84 93 05/13/19 06:56 97.9 F 104 18 107/76 93 05/13/19 03:31 98.6 F 98 17 99/78 95 05/13/19 03:10 111 05/13/19 00:28 17 95 05/12/19 23:32 106 05/12/19 22:56 97.9 F 103 19 108/67 92 05/12/19 19:27 97.9 F 96 18 109/62 93 05/12/19 19:18 102 Intake and Output 05/13/19 05/13/19 05/13/19 07:59 15:59 23:59 Intake Total 413 / 862 327 / 862 122 / 862 Output Total 200 / 200 Balance 413 / 662 127 / 662 122 / 662 Intake: IV Fluids 413 / 622 87 / 622 122 / 622 Heparin 25,000 UNIT/250 ML D5W 163 / 362 87 / 362 112 / 362 25,000 unit In 250 ml @ 14 UNIT /KG/HR 12.516 mls/hr IVC . [id number] [facility] Rx#:[id number] Rocephin 1,000 MG In Water for inj. (sterile) 10 ML @ 600 mls/ hr IVP DAILY [facility] Rx#:[id number] Zithromax 500 MG In Dextrose 5% 250 / 250 250 ML @ 252 mls/hr IVPB Q24H [facility] Rx#:[id number] Oral 240 / 240 Output: Urine 200 / 200 Other: Meal Lunch Percent of Meal Consumed 20% # Voids 1 Weight 84.9 kg Patient Weight 05/13/19 23:59 Weight 84.9 kg - General Appearance General appearance: Present: well-developed, well-nourished EENT: Present: ATNC, mucous membranes moist Neck: Present: no JVD, supple Additional Comments: good areation ant bilat Cardiology: Present: edema (LE bilat), normal S1, normal S2 Gastrointestinal: Present: no tenderness, no guarding Integumentary: Present: warm and dry Neurologic: Present: no focal deficit Musculoskeletal: Present: no deformities Psychiatric: Present: mood/affect appropriate, cooperative - Lab 05/13/19 04:17 05/13/19 04:17 Consult Discharge Plan - Plan Referrals: Naman Harper MD [Partnered Physician] - 05/19/19 1:30 pm
[2019-05-13] MEDS: Famotidine 20 MG TABLET PO SCH (20:25)
[2019-05-13] MEDS: Apixaban 5 MG TABLET PO SCH (20:26)
[2019-05-13] MEDS: Prochlorperazine 10 MG/2 ML VIAL IVP PRN (21:55)
[2019-05-14] MEDS: Azithromycin 500 MG in D5% in Water 250 ML IVPB SCH (06:07)
--- NOTE | 2019-05-14 08:05 | Event Note ---
Date of Encounter: 05/14/19 Time of Encounter: 08:02 - Cardiology Event Note Patient with a.fib, started on amiodarone and BB. HR relatively controlled. Can uptitrate BB if needed for better HR control as BP will allow. Patient agreeable to anticoagulation and was started on eliquis 2.5mg BID. Regarding CHF and volume overload, diuretics have been on hold per nephrology recs for ANA MARÍA. Will defer volume management to nephrology. Recommend discharge with oral lasix, if able. Respiratory status and O2 requirements have been improving. CHF education was reviewed with patient and family at length. Patient has had no more recurrence of complex tachycardia, concerning for slow VT, since BB increase. Patient has adamently refused ischemic evaluation. Patient has been educated regarding risk of no ischemic evaluation. Cardiology will sign off. Will arrange close outpatient follow up.
[2019-05-14 08:07] LABS: Basophils # 0.1 K/mcL (0.0-0.2); Basophils % 0.8 %; Eosinophils # 0.4 K/mcL (0.0-0.6); Eosinophils % 5.5 %; Hematocrit 32.2 % (35.3-44.9); Hemoglobin 10.8 g/dL (11.5-15.4); Immature Granulocytes % 0.8 % (0-4); Lymphocytes # 1.6 K/mcL (0.6-4.6); Lymphocytes % 21.4 %; Mean Corpuscular HGB Conc 33.5 g/dL (31.6-35.5); Mean Corpuscular Volume 98.5 fL (83.0-100.0); Mean Platelet Volume 9.3 fL (9.4-12.4); Monocytes % 13.3 %; Neutrophils # 4.4 K/mcL (1.6-8.9); Platelet Count 245 K/mcL (140-400); Red Blood Count 3.27 M/mcL (3.82-4.97); Red Cell Distribution Width 14.8 % (11.5-14.5); Segmented Neutrophils % 58.2 %; White Blood Count 7.6 K/mcL (4.3-11.1)
[2019-05-14] MEDS: Multivit/Ca/Min/Fe/FA 1 TAB TABLET PO SCH (08:11)
[2019-05-14] MEDS: *HR* Amiodarone 200 MG TABLET PO SCH ×2 (08:11→19:50)
[2019-05-14] MEDS: cefTRIAXone 1,000 MG in Water for inj. (sterile) 10 ML IVP SCH (08:12)
[2019-05-14] MEDS: Apixaban 5 MG TABLET PO SCH ×2 (08:12→19:50)
[2019-05-14 08:26] LABS: Calcium 8.5 mg/dL (8.6-10.3); Potassium 3.8 mEq/L (3.5-5.1)
[2019-05-14] MEDS: Ondansetron 4 MG/2 ML VIAL IVP PRN (10:03)
[2019-05-14] MEDS: *HR* HYDROcodone/Acet 5/325 mg TABLET PO PRN ×2 (11:52→17:18)
--- NOTE | 2019-05-14 14:05 | Nephrology Progress Note ---
Date of Encounter: 05/14/19 Time of Encounter: 14:00 - Assessment and Plan (1) Acute kidney injury Current Visit: Yes Status: Acute Scr improved at 1.74, GFR 28 off diuretics UOP documneted st 200cc int he past 24hrs, unclear if accurate though unlikely g iven renal improvement (2) Acute decompensated heart failure Current Visit: Yes Status: Acute (3) CKD (chronic kidney disease), stage III Current Visit: Yes Status: Acute (4) Hypokalemia Current Visit: Yes Status: Acute (5) Hyponatremia Current Visit: Yes Status: Acute Subjective Principal diagnosis: Short of breath, elevated troponin Interval history: Pt seen and examined Objective - Vital Signs Vital signs: Vital Signs Temp Pulse Resp BP Pulse Ox 05/14/19 12:10 97.7 F 87 22 104/65 90 05/14/19 06:45 97.6 F 99 20 108/74 94 05/14/19 03:48 98.2 F 102 18 137/75 91 05/14/19 00:09 97.9 F 109 17 109/73 93 05/13/19 20:06 16 92 05/13/19 20:00 98.3 F 120 18 114/56 94 Intake and Output 05/13/19 05/14/19 05/14/19 23:59 07:59 15:59 Intake Total 141.2 / 881.2 240 / 240 Output Total 400 / 400 Balance 141.2 / 681.2 -400 / -160 240 / -160 Intake: IV Fluids 141.2 / 641.2 Heparin 25,000 UNIT/250 ML D5W 131.2 / 381.2 25,000 unit In 250 ml @ 14 UNIT /KG/HR 12.516 mls/hr IVC . [id number] [facility] Rx#:[id number] Rocephin 1,000 MG In Water for inj. (sterile) 10 ML @ 600 mls/ hr IVP DAILY [facility] Rx#:[id number] Oral 240 / 240 Output: Urine 400 / 400 Other: Meal Lunch Percent of Meal Consumed 70% Weight 84.3 kg Patient Weight 05/14/19 23:59 Weight 84.3 kg - Lab 05/14/19 07:21 05/14/19 07:21 Most recent lab results 05/14/19 07:21 Calcium 8.5 L Consult Discharge Plan - Plan Referrals: Naman Harper MD [Partnered Physician] - 05/19/19 1:30 pm
--- NOTE | 2019-05-14 14:16 | Internal Med Progress Note ---
Hospitalist Progress Note - Encounter Date of Encounter: 05/14/19 Time of Encounter: 08:15 - Subjective Interval History: Seen at bedside. Denies chest pain, shortness of breath. Is feeling much better than yesterday. No acute overnigth events. Denies fever, chills. - Exam Vitals: Temp Pulse Resp BP Pulse Ox 97.7 F 87 22 104/65 90 05/14/19 12:10 05/14/19 12:10 05/14/19 12:10 05/14/19 12:10 05/14/19 12:10 Exam: General: Alert and oriented, no physical distress, able to follow commands. Respiratory: Lungs clear to asuculation today. Respirations noraml,no additional breath sounds. CVS: Normal heart sounds, no murmurs, no edema. Mldly tadchycardic with the HR in 90s. Extremities: No peripheral edema, peripheral pulses intact. Lymph nodes: No lymphadenopathy Gastrointestinal: Soft, nontender abdomen, normal abdominal sounds. No di stention noted. Neurological: Alert and oriented. No focal deficits. Cranial nerves II-XII intact. - Assessment and Plan (1) Acute respiratory failure with hypoxia Current Visit: Yes Status: Acute Assessment and Plan: -Etiolgoy likley secondary to PNA with probable fluid overload. -Echocardiogram showed EF 50-55%. Also has moderate pHTN with dilated/hypokinetic RV as well as mod-severe TR. -Was on BPAP previously but on xygen mask now, saturating in mid 90s on 4L -Was on lasix whihc was held due to worsenig kidney functions. -Urine output is docuemnted around 200 ml, suspect it karin be not the right reading. -continue IV Yeyo, d/c azithromyciun as completed 5 days (2) PAF (paroxysmal atrial fibrillation) Current Visit: Yes Status: Acute Assessment and Plan: -Hx of atrial fibrillation, was not on AC in the past. -HS been started on 2.5 mg eliquis PO BID -Pt is currently on aspirin and plavix for CAD, we will stop aspirin and continue plavix. -Cardiolgoy on [place], appreciate recommendations (3) NSTEMI (non-ST elevated myocardial infarction) Current Visit: Yes Status: Acute Assessment and Plan: -Troponin elevation with 0.15 -ALso had wide complex tachycardia on the day of presentation requiring amiodarone -continue plavix, statin, bb -COnsdering comorbidites, and pt wishes, no plan for thr LHC. -Cardiolgoy on board, appreicate recommendations (4) DVT prophylaxis Current Visit: Yes Status: Acute Assessment and Plan: -on eliquis (5) Acute kidney injury Current Visit: Yes Status: Acute Assessment and Plan: -Etiolgoy unclear. Could be ATN -Kidney functions improved significnatly otday, imporved from 2.39 to 1.74 -Pt seems euvolemic at this point -Lasix on hold -Npehro on board -Will defer the lasix dosing to nephro (6) CAD (coronary artery disease) Current Visit: No Status: Chronic (7) Acute decompensated heart failure Current Visit: Yes Status: Acute Assessment and Plan: -EF 50-55% -Was on lasix which was held 2/2 worsening Cr. -Pt is overall improving. -Diuretic maagement as per nephro - (8) Ventricular arrhythmia Current Visit: Yes Status: Acute Assessment and Plan: -Trasnitionedto PO amiodarone, pt declining ischemic eval for now -Continue bb -Monitor electrolytes (9) Community acquired bacterial pneumonia Current Visit: Yes Status: Acute Assessment and Plan: -WBC improving -Cont ceftriaoxne -Azithromycin has been discontinued - Time Spent with Patient Total time spent is greater than 50% in coordination of care (as documented) at patient's floor/unit and/or counseling patient: Internal Medicine: Result - Labs CBC & Chem 7: 05/14/19 07:21 05/14/19 07:21 Labs: Short CBC 05/14/19 Range/Units 07:21 WBC 7.6 (4.3-11.1) K/mcL Hgb 10.8 L (11.5-15.4) g/dL Hct 32.2 L (35.3-44.9) % Plt Count 245 (140-400) K/mcL Neutrophils # 4.4 (1.6-8.9) K/mcL BMP 05/14/19 07:21 Sodium 133 L Potassium 3.8 Chloride 96 L Carbon Dioxide 28 BUN 69 H Creatinine 1.74 H Glucose 143 H Calcium 8.5 L - ABG Interpretation ABG results: PT/INR, D-dimer PT 11.7 Seconds (9.4-12.1) 05/12/19 15:47 Consult Discharge Plan - Plan Referrals: Naman Harper MD [Partnered Physician] - 05/19/19 1:30 pm (6) CAD (coronary artery disease) Qualifiers: Coronary Disease-Associated Artery/Lesion type: [place] artery [place] vs. transplanted heart: [place] heart Associated angina: with unstable angina Qualified Code(s): I25.110 - Atherosclerotic heart disease of [place] coronary artery with unstable angina pectoris
[2019-05-14 14:28] LABS: IFE Reflexed NOT DONE
[2019-05-14] MEDS ORDERED: Methyl Salicylate/Menthol 28 GM TUBE TP PRN (17:44)
[2019-05-14] MEDS: Famotidine 20 MG TABLET PO SCH (19:50)
[2019-05-14] MEDS: Ipratropium/Albuterol Neb 3 ML IH SCH ×2 (20:04→23:46)
[2019-05-15] MEDS: *HR* HYDROcodone/Acet 5/325 mg TABLET PO PRN ×3 (00:29→18:56)
[2019-05-15] MEDS: Ipratropium/Albuterol Neb 3 ML IH SCH ×6 (03:50→23:22)
[2019-05-15 05:42] LABS: Basophils # 0.1 K/mcL (0.0-0.2); Basophils % 0.7 %; Eosinophils # 0.4 K/mcL (0.0-0.6); Eosinophils % 4.3 %; Hematocrit 33.1 % (35.3-44.9); Hemoglobin 10.7 g/dL (11.5-15.4); Immature Granulocytes % 0.8 % (0-4); Lymphocytes # 2.5 K/mcL (0.6-4.6); Lymphocytes % 27.8 %; Mean Corpuscular HGB Conc 32.3 g/dL (31.6-35.5); Mean Corpuscular Hemoglobin 32.5 pg (28.0-33.3); Mean Corpuscular Volume 100.6 fL (83.0-100.0); Monocytes # 1.1 K/mcL (0.0-1.3); Monocytes % 11.9 %; Neutrophils # 4.8 K/mcL (1.6-8.9); Platelet Count 291 K/mcL (140-400); Red Blood Count 3.29 M/mcL (3.82-4.97); Segmented Neutrophils % 54.5 %; White Blood Count 8.8 K/mcL (4.3-11.1)
[2019-05-15 06:00] LABS: Calcium 8.8 mg/dL (8.6-10.3)
[2019-05-15] MEDS: Multivit/Ca/Min/Fe/FA 1 TAB TABLET PO SCH (08:32)
[2019-05-15] MEDS: Apixaban 5 MG TABLET PO SCH ×2 (08:32→20:48)
[2019-05-15] MEDS: cefTRIAXone 1,000 MG in Water for inj. (sterile) 10 ML IVP SCH (08:32)
[2019-05-15] MEDS: *HR* Amiodarone 200 MG TABLET PO SCH ×2 (08:32→20:49)
--- NOTE | 2019-05-15 08:57 | Nephrology Progress Note ---
Date of Encounter: 05/15/19 Time of Encounter: 10:00 - Assessment and Plan (1) Acute kidney injury Current Visit: Yes Status: Acute Scr continues to improve slightly at 1.72, GFR 28 off diuretics UOP documented at 400cc in the past 24hrs, unclear if accurate though unlikely given renal improvement (2) Acute decompensated heart failure Current Visit: Yes Status: Acute (3) CKD (chronic kidney disease), stage III Current Visit: Yes Status: Acute (4) Hypokalemia Current Visit: Yes Status: Acute (5) Hyponatremia Current Visit: Yes Status: Acute Subjective Principal diagnosis: Short of breath, elevated troponin Interval history: Pt seen and examined Objective - Vital Signs Vital signs: Vital Signs Temp Pulse Resp BP Pulse Ox 05/15/19 07:34 18 91 05/15/19 07:31 97.9 F 108 20 133/79 92 05/15/19 03:51 18 92 05/15/19 03:46 97.8 F 97 19 110/64 93 05/14/19 23:48 16 91 05/14/19 23:41 97.9 F 98 19 112/69 91 05/14/19 20:05 18 96 05/14/19 19:12 97.9 F 97 19 103/66 94 05/14/19 16:40 98.4 F 113 18 106/54 95 05/14/19 12:10 97.7 F 87 22 104/65 90 Intake and Output 05/14/19 05/15/19 05/15/19 23:59 07:59 15:59 Intake Total 0 / 240 20 Output Total 0 / 400 0 / 0 Balance 0 / -160 20 Intake: IV Fluids / 20 Rocephin 1,000 MG In Water for 20 20 inj. (sterile) 10 ML @ 600 mls/ hr IVP DAILY [facility] Rx#:[id number] Oral 0 / 240 0 / 0 Output: Urine 0 / 400 0 / 0 Other: # Voids 1 1 Weight 84.3 kg - Lab 05/15/19 05:01 05/15/19 05:01 Most recent lab results 05/15/19 05:01 Calcium 8.8 Consult Discharge Plan - Plan Referrals: Naman Harper MD [Partnered Physician] - 05/19/19 1:30 pm
[2019-05-15] MEDS ORDERED: Azithromycin 250 MG TABLET PO SCH (09:00)
[2019-05-15] MEDS: Sennosides 8.6 MG TABLET PO SCH (10:34)
--- NOTE | 2019-05-15 11:20 | Internal Med Progress Note ---
Hospitalist Progress Note - Encounter Date of Encounter: 05/15/19 Time of Encounter: 10:00 - Subjective Interval History: Seen at bedside, is looking much more comfortable today. Denies any chest pain, SOB, fever, chills. No overnight events. - Exam Vitals: Temp Pulse Resp BP Pulse Ox 97.9 F 108 18 133/79 96 05/15/19 07:31 05/15/19 07:31 05/15/19 11:09 05/15/19 07:31 05/15/19 11:09 Exam: General: Alert and oriented, no physical distress, able to follow commands. Respiratory: Lungs clear to asuculation today. Respirations noramal and non alboured, on 4L of O2, saturations in 90s,,no additional breath sounds. CVS: Normal heart sounds, no murmurs, no edema. Mldly tadchycardic with the HR in 90s. Extremities: No peripheral edema, peripheral pulses intact. Lymph nodes: No lymphadenopathy Gastrointestinal: Soft, nontender abdomen, normal abdominal sounds. No distention noted. Neurological: Alert and oriented. No focal deficits. Cranial nerves II-XII intact. - Assessment and Plan (1) Acute respiratory failure with hypoxia Current Visit: Yes Status: Acute Assessment and Plan: -Etiolgoy likley secondary to PNA with probable fluid overload. -Echocardiogram showed EF 50-55%. Also has moderate pHTN with dilated/ hypokinetic RV as well as mod-severe TR. -Was on BPAP previously but on xygen mask now, saturating in mid 90s on 4L -Was on lasix whihc was held due to worsenig kidney functions. -Nephrology on [place], appreciate recommendations. -continue IV Yeyo, day 6 (2) PAF (paroxysmal atrial fibrillation) Current Visit: Yes Status: Acute Assessment and Plan: -Hx of atrial fibrillation, was not on AC in the past. -HS been started on 2.5 mg eliquis PO BID -Pt is currently on aspirin and plavix for CAD, we will stop aspirin and continue plavix. -Cardiolgoy on [place], appreciate recommendations (3) NSTEMI (non-ST elevated myocardial infarction) Current Visit: Yes Status: Acute Assessment and Plan: -Troponin elevation with 0.15 -ALso had wide complex tachycardia on the day of presentation requiring amiodarone -continue plavix, statin, bb -COnsdering comorbidites, and pt wishes, no plan for thr LHC. -Cardiolgoy on board, appreicate recommendations (4) DVT prophylaxis Current Visit: Yes Status: Acute Assessment and Plan: -on eliquis (5) Acute kidney injury Current Visit: Yes Status: Acute Assessment and Plan: -Etiolgoy unclear. -Kidney functions have been improving, acc to pt she is making good amount of urine -Lasix on hold -Npehro on board -Will defer the lasix dosing to nephro (6) CAD (coronary artery disease) Current Visit: No Status: Chronic Assessment and Plan: -Continue home meds (7) Acute decompensated heart failure Current Visit: Yes Status: Acute Assessment and Plan: -Echo findings mentioned above -Was on lasix which was held 2/2 worsening Cr. -Pt is overall improving. -Diuretic maagement as per nephro - (8) Ventricular arrhythmia Current Visit: Yes Status: Acute Assessment and Plan: -Coudl be related to ischemia vs A. Fib with aberrancy -Trasnitionedto PO amiodarone, pt declining ischemic eval for now -Continue bb -Monitor electrolytes (9) Community acquired bacterial pneumonia Current Visit: Yes Status: Acute Assessment and Plan: -WBC improving -Cont ceftriaoxne -Azithromycin has been discontinued (10) Constipation Current Visit: Yes Status: Acute Assessment and Plan: -Order miralax and senna - Time Spent with Patient Total time spent is greater than 50% in coordination of care (as documented) at patient's floor/unit and/or counseling patient: Internal Medicine: Result - Labs CBC & Chem 7: 05/15/19 05:01 05/15/19 05:01 Labs: Short CBC 05/15/19 Range/Units 05:01 WBC 8.8 (4.3-11.1) K/mcL Hgb 10.7 L (11.5-15.4) g/dL Hct 33.1 L (35.3-44.9) % Plt Count 291 (140-400) K/mcL Neutrophils # 4.8 (1.6-8.9) K/mcL BMP 05/15/19 05:01 Sodium 133 L Potassium 4.0 Chloride 97 L Carbon Dioxide 31 H BUN 63 H Creatinine 1.72 H Glucose 116 H Calcium 8.8 - ABG Interpretation ABG results: PT/INR, D-dimer PT 11.7 Seconds (9.4-12.1) 05/12/19 15:47 Consult Discharge Plan - Plan Referrals: Naman Harper MD [Partnered Physician] - 05/19/19 1:30 pm (6) CAD (coronary artery disease) Qualifiers: Coronary Disease-Associated Artery/Lesion type: [place] artery [place] vs. transplanted heart: [place] heart Associated angina: with unstable angina Quali fied Code(s): I25.110 - Atherosclerotic heart disease of [place] coronary artery with unstable angina pectoris (10) Constipation Qualifiers: Constipation type: unspecified constipation type Qualified Code(s): K59.00 - Constipation, unspecified
[2019-05-15] MEDS ORDERED: Methyl Salicylate/Menthol 57 APPL/57 GM TUBE TP PRN (15:00)
[2019-05-15] MEDS: Famotidine 20 MG TABLET PO SCH (20:49)
[2019-05-16] MEDS: *HR* HYDROcodone/Acet 5/325 mg TABLET PO PRN ×3 (01:58→21:07)
[2019-05-16] MEDS: Ipratropium/Albuterol Neb 3 ML IH SCH ×6 (04:02→23:19)
[2019-05-16 05:31] LABS: Calcium 8.7 mg/dL (8.6-10.3); Potassium 4.5 mEq/L (3.5-5.1)
[2019-05-16] MEDS: Apixaban 5 MG TABLET PO SCH ×2 (09:59→21:07)
[2019-05-16] MEDS: Sennosides 8.6 MG TABLET PO SCH (09:59)
[2019-05-16] MEDS: *HR* Amiodarone 200 MG TABLET PO SCH ×2 (09:59→21:07)
[2019-05-16] MEDS: cefTRIAXone 1,000 MG in Water for inj. (sterile) 10 ML IVP SCH (09:59)
[2019-05-16] MEDS: Multivit/Ca/Min/Fe/FA 1 TAB TABLET PO SCH (09:59)
--- NOTE | 2019-05-16 11:02 | Internal Med Progress Note ---
Hospitalist Progress Note - Encounter Date of Encounter: 05/16/19 Time of Encounter: 10:00 - Subjective Interval History: Seen at [facility].Complains of mild shortness of breath but doing fine on 3L of O2 with 95% saturations. Denies any chest pain, pressure, fever, chills.No other overnight evetns. Being worked up for the placement. - Exam Vitals: Temp Pulse Resp BP Pulse Ox 98.1 F 108 20 130/71 91 05/16/19 10:34 05/16/19 10:34 05/16/19 10:34 05/16/19 10:34 05/16/19 10:34 Exam: General: Alert and oriented, no physical distress, able to follow commands. Respiratory: Lungs clear to asuculation today. Respirations noramal and non alboured, on 3L of O2, saturations in 90s,,no additional breath sounds. CVS: Normal heart sounds, no murmurs, peripheral edema. Extremities: 2+ lower extremity edema. Lymph nodes: No lymphadenopathy Gastrointestinal: Soft, nontender abdomen, normal abdominal sounds. No distention noted. Neurological: Alert and oriented. No focal deficits. Cranial nerves II-XII intact. - Assessment and Plan (1) Acute respiratory failure with hypoxia Current Visit: Yes Status: Acute Assessment and Plan: -Etiolgoy likley secondary to PNA with probable fluid overload. -Echocardiogram showed EF 50-55%. Also has moderate pHTN with dilated/hypokinetic RV as well as mod-severe TR. -Was on BPAP previously but on xygen mask now, saturating in mid 90s on 3L -Was on lasix whihc was held due to worsenig kidney functions. -Nephrology on [facility], appreciate recommendations. -continue IV Yeyo, day 04/27 (2) PAF (paroxysmal atrial fibrillation) Current Visit: Yes Status: Acute Assessment and Plan: -Hx of atrial fibrillation, was not on AC in the past. -HS been started on 2.5 mg eliquis PO BID -Pt is currently on aspirin and plavix for CAD, we will stop aspirin and continue plavix. -Cardiolgoy on [place], appreciate recommendations (3) NSTEMI (non-ST elevated myocardial infarction) Current Visit: Yes Status: Acute Assessment and Plan: -Troponin elevated at e time of admisison -ALso had wide complex tachycardia on the day of presentation requiring amiodarone -continue plavix, statin, bb -COnsdering comorbidites, and pt wishes, no plan for thr [facility]. -Cardiolgoy on board, appreicate recommendations (4) DVT prophylaxis Current Visit: Yes Status: Acute Assessment and Plan: -on eliquis (5) Acute kidney injury Current Visit: Yes Status: Acute Assessment and Plan: -Etiolgoy unclear. -Improving, Cr improved to 1.61 today -Acc to pt she is making good amount of urine, suspect charting is not right -Lasix on hold -Npehro on board -Will defer the lasix dosing to nephro (6) CAD (coronary artery disease) Current Visit: No Status: Chronic Assessment and Plan: -Continue home meds (7) Acute decompensated heart failure Current Visit: Yes Status: Acute Assessment and Plan: -Echo findings mentioned above -Was on lasix which was held 2/2 worsening Cr. -Pt is overall improving. -Diuretic maagement as per nephro - (8) Ventricular arrhythmia Current Visit: Yes Status: Acute Assessment and Plan: -Coudl be related to ischemia vs A. Fib with aberrancy -Trasnitionedto PO amiodarone, pt declining ischemic eval for now -Continue bb -Monitor electrolytes (9) Community acquired bacterial pneumonia Current Visit: Yes Status: Acute Assessment and Plan: -WBC improving -Cont ceftriaoxne 04/27 -Azithromycin has been discontinued (10) Constipation Current Visit: Yes Status: Acute Assessment and Plan: -Order miralax and senna - Time Spent with Patient Total time spent is greater than 50% in coordination of care (as documented) at patient's floor/unit and/or counseling patient: Internal Medicine: Result - Labs CBC & Chem 7: 05/15/19 05:01 05/16/19 04:03 Labs: BMP 05/16/19 04:03 Sodium 132 L Potassium 4.5 Chloride 96 L Carbon Dioxide 31 H BUN 58 H Creatinine 1.61 H Glucose 111 H Calcium 8.7 - ABG Interpretation ABG results: PT/INR, D-dimer PT 11.7 Seconds (9.4-12.1) 05/12/19 15:47 Consult Discharge Plan - Plan Referrals: Naman Harper MD [Partnered Physician] - 05/19/19 1:30 pm (6) CAD (coronary artery disease) Qualifiers: Coronary Disease-Associated Artery/Lesion type: [place] artery [place] vs. transplanted heart: [place] heart Associated angina: with unstable angina Qualified Code(s): I25.110 - Atherosclerotic heart disease of [place] coronary artery with unstable angina pectoris (10) Constipation Qualifiers: Constipation type: unspecified constipation type Qualified Code(s): K59.00 - Constipation, unspecified
--- NOTE | 2019-05-16 17:19 | Nephrology Progress Note ---
Date of Encounter: 05/16/19 Time of Encounter: 12:00 - Assessment and Plan (1) Acute kidney injury Current Visit: Yes Status: Acute (2) Acute decompensated heart failure Current Visit: Yes Status: Acute (3) CKD (chronic kidney disease), stage III Current Visit: Yes Status: Acute (4) Hypokalemia Current Visit: Yes Status: Acute (5) Hyponatremia Current Visit: Yes Status: Acute Subjective Principal diagnosis: Short of breath, elevated troponin Interval history: Pt seen and examined Objective - Vital Signs Vital signs: Vital Signs Temp Pulse Resp BP Pulse Ox 05/16/19 16:10 98.2 F 100 20 131/68 92 05/16/19 15:32 18 95 05/16/19 11:31 18 93 05/16/19 10:34 98.1 F 108 20 130/71 91 05/16/19 07:09 18 95 05/16/19 06:49 97.5 F L 103 18 115/69 91 05/16/19 04:03 18 96 05/16/19 03:05 97.4 F L 93 18 106/68 96 05/15/19 23:22 18 98 05/15/19 22:35 98 F 96 18 116/64 99 05/15/19 22:23 22 96 05/15/19 20:19 20 96 05/15/19 19:00 97.6 F 107 18 112/65 95 Intake and Output 05/16/19 05/16/19 05/16/19 07:59 15:59 23:59 Intake Total 250 / 250 Output Total 150 / 150 Balance -150 / 100 250 / 100 Intake: IV Fluids Rocephin 1,000 MG In Water for inj. (sterile) 10 ML @ 600 mls/ hr IVP DAILY [facility] Rx#:[id number] Oral 240 / 240 Output: Urine 150 / 150 Other: # Voids 2 Weight 85.4 kg Patient Weight 05/16/19 23:59 Weight 85.4 kg - Lab 05/15/19 05:01 05/16/19 04:03 Most recent lab results 05/16/19 04:03 Calcium 8.7 Consult Discharge Plan - Plan Referrals: Naman Harper MD [Partnered Physician] - 05/19/19 1:30 pm
[2019-05-16] MEDS: Famotidine 20 MG TABLET PO SCH (21:06)
[2019-05-17] MEDS: Ondansetron 4 MG/2 ML VIAL IVP PRN (03:28)
[2019-05-17] MEDS: GuaiFENesin Liq 200 MG/10 ML UDC PO PRN ×2 (03:28→19:59)
[2019-05-17] MEDS: Ipratropium/Albuterol Neb 3 ML IH SCH ×6 (04:01→23:10)
[2019-05-17] MEDS: *HR* HYDROcodone/Acet 5/325 mg TABLET PO PRN ×2 (05:20→13:27)
[2019-05-17] MEDS: cefTRIAXone 1,000 MG in Water for inj. (sterile) 10 ML IVP SCH (08:02)
[2019-05-17] MEDS: Multivit/Ca/Min/Fe/FA 1 TAB TABLET PO SCH (08:03)
[2019-05-17] MEDS: Apixaban 5 MG TABLET PO SCH ×2 (08:03→20:00)
[2019-05-17] MEDS: Sennosides 8.6 MG TABLET PO SCH (08:03)
[2019-05-17] MEDS: *HR* Amiodarone 200 MG TABLET PO SCH ×2 (08:03→20:00)
[2019-05-17 09:15] LABS: Basophils # 0.1 K/mcL (0.0-0.2); Basophils % 0.7 %; Eosinophils # 0.4 K/mcL (0.0-0.6); Eosinophils % 3.9 %; Hematocrit 33.4 % (35.3-44.9); Hemoglobin 10.6 g/dL (11.5-15.4); Immature Granulocytes % 0.9 % (0-4); Lymphocytes # 1.6 K/mcL (0.6-4.6); Lymphocytes % 18.1 %; Mean Corpuscular HGB Conc 31.7 g/dL (31.6-35.5); Mean Corpuscular Volume 100.9 fL (83.0-100.0); Mean Platelet Volume 8.6 fL (9.4-12.4); Monocytes # 0.9 K/mcL (0.0-1.3); Monocytes % 9.6 %; Neutrophils # 6.1 K/mcL (1.6-8.9); Platelet Count 353 K/mcL (140-400); Red Blood Count 3.31 M/mcL (3.82-4.97); Red Cell Distribution Width 15.3 % (11.5-14.5); Segmented Neutrophils % 66.8 %; White Blood Count 9.1 K/mcL (4.3-11.1)
[2019-05-17 09:32] LABS: Calcium 8.9 mg/dL (8.6-10.3); Potassium 4.5 mEq/L (3.5-5.1)
[2019-05-17] MEDS ORDERED: MOM Conc 10 ML UD.LIQ PO ONE (12:16)
--- NOTE | 2019-05-17 14:05 | Palliative Progress Note ---
Date of Encounter: 05/17/19 Time of Encounter: 13:00 - Assessment and plan (1) Pain Current Visit: Yes Status: Acute Assessment and plan: Patient with hx of Osteoarthritis. Taking PRN Vicodin for relief. Case discussed with Pharmacist Edd for recommendations. Will schedule [place] around the clock for 24 hrs for relief then add high dose tylenol for relief. Patient actively participating in PT/OT. Awaiting bed at [facility] for rehab. (2) Constipation Current Visit: Yes Status: Acute Assessment and plan: Patient with no BM x 5 days. Taking PO [place] for management of arthritis. Last documented BM on 05/12/19. States she feels full. Current plan is patient is taking Mirilax and Senna scheduled daily. Plan: Give onetime dose of MOM today Increase Senna to 2 tabs BID Assess in AM Patient agree to plan. Monitor I&O Qualifiers: Constipation type: slow transit constipation Qualified Code(s): K59.01 - Slow transit constipation (3) Dyspnea Current Visit: No Status: Acute Assessment and plan: Patient tolerating NC at 3L with sats 92%. Alert, able to CBD. Plan: Supplemental O2 Bipap PRN HOB up CDB CXR - Chronic patchy lung consolidation Qualifiers: Dyspnea type: unspecified Qualified Code(s): R06.00 - Dyspnea, unspecified (4) Goals of care, counseling/discussion Current Visit: Yes Status: Acute Assessment and plan: Called jane Stalin and gave update on POC. Informed that SW working on placement at [facility]. Verbalized understanding of patient condition and POC. Updated on medications for bowels and comfort. (5) Palliative care encounter Current Visit: Yes Status: Acute (6) NSTEMI (non-ST elevated myocardial infarction) Current Visit: Yes Status: Acute Assessment and plan: S/P NSTEMI. Patient not candidate for [facility] based on desires and renal panel. (7) Acute respiratory failure with hypoxia Current Visit: Yes Status: Acute Assessment and plan: Tolerating NC 3L during day with Bipap PRN at night. (8) Acute decompensated heart failure Current Visit: Yes Status: Acute - Time Spent With Patient Total time spent is greater than 50% in coordination of care (as documented) at patient's floor/unit and/or counseling patient: 25 - 35 minutes - Subjective Interval history: Patient alert, up in chair, eating lunch. Tolerating NC at 3L. Sats 92%. Patient with severe osteoporosis. C/O generalized joint aching. - Constitutional Vitals: Abnormal lab results WBC 13.1 K/mcL (4.3-11.1) H 05/09/19 05:26 RBC 3.31 M/mcL (3.82-4.97) L 05/17/19 08:46 Hgb 10.6 g/dL (11.5-15.4) L 05/17/19 08:46 Hct 33.4 % (35.3-44.9) L 05/17/19 08:46 MCV 100.9 fL (83.0-100.0) H 05/17/19 08:46 RDW 15.3 % (11.5-14.5) H 05/17/19 08:46 MPV 8.6 fL (9.4-12.4) L 05/17/19 08:46 Neutrophils # 10.0 K/mcL (1.6-8.9) H 05/09/19 05:26 Monocytes # 1.6 K/mcL (0.0-1.3) H 05/09/19 05:26 Eosinophils # 0.7 K/mcL (0.0-0.6) H 05/13/19 04:17 PT 12.6 Seconds (9.4-12.1) H 05/12/19 01:42 Heparin Anti-Xa, Unfract 0.71 IU/mL (0.30-0.70) H 05/13/19 17:12 Sodium 134 mEq/L (136-145) L 05/17/19 08:46 Potassium 3.2 mEq/L (3.5-5.1) L 05/10/19 05:12 Chloride 95 mEq/L (98-107) L 05/17/19 08:46 Carbon Dioxide 31 mEq/L (23-29) H 05/17/19 08:46 BUN 48 mg/dL (8-23) H 05/17/19 08:46 Creatinine 1.25 mg/dL (0.60-1.20) H 05/17/19 08:46 Est GFR ( Amer) 49 (> 60) L 05/17/19 08:46 Est GFR (Non-Af Amer) 41 (> 60) L 05/17/19 08:46 BUN/Creatinine Ratio 38 (6-26) H 05/17/19 08:46 Glucose 154 mg/dL (70-105) H 05/17/19 08:46 POC Glucose 109 mg/dL (70-99) H 05/10/19 23:47 Calculated Osmolality 315 (280-300) H 05/13/19 04:17 Uric Acid 13.9 mg/dL (2.3-7.6) H 05/11/19 04:24 Calcium 8.5 mg/dL (8.6-10.3) L 05/14/19 07:21 Phosphorus 4.8 mg/dL (2.7-4.5) H 05/10/19 05:12 Creatine Kinase 19 Units/L (30-223) L 05/11/19 04:24 Troponin I 0.15 ng/mL (< 0.04) H* 05/08/19 06:19 B-Natriuretic Peptide 955 pg/mL (Less than 100) H 05/08/19 03:50 Total Protein (PEP) 5.10 g/dL (6.00-8.30) L 05/11/19 04:24 Albumin (PEP) 2.54 g/dL (3.75-5.01) L 05/11/19 04:24 Procalcitonin 0.89 ng/mL (0.00-0.15) H 05/08/19 07:28 [place] LC, Quant 3.70 mg/dL (0.33-1.94) H 05/11/19 04:24 - Head Head exam: Present: atraumatic, normal inspection - Eye Eye exam: Present: PERRL - ENT ENT exam: Present: mucous membranes moist - Neck Neck exam: Present: full ROM - Respiratory Respiratory exam: Present: decreased breath sounds - Expanded Respiratory Exam Location: decreased breath sounds: Left, Right, Lower - Cardiovascular Cardiovascular exam: Present: +S1, +S2 - GI/Abdominal GI/Abdominal exam: Present: normal bowel sounds, soft - Rectal Rectal exam: Present: deferred - Extremities Exam Extremities exam: Present: tenderness - Expanded Upper Extremity Exam General: Present: normal inspection - Neurological Exam Neurological exam: Present: alert, oriented X3 - Psychiatric Psychiatric exam: Present: normal affect - Skin Skin exam: Present: pallor, warm Palliative Quality Palliative Quality: Screen for Code Status: Yes, Screen for Goals of Care: Yes, Screen for Pain: Yes, Screen for Nausea/Vomitting: Yes Code Status: 05/08/19 00:34 Resuscitation Status: Active [RES] Stat Comment: Resuscitation Status: Full Code - Labs CBC & Chem 7: 05/17/19 08:46 05/17/19 08:46 Labs: Laboratory Results - last 24 hr 05/17/19 05/17/19 08:46 08:46 WBC 9.1 RBC 3.31 L Hgb 10.6 L Hct 33.4 L MCV 100.9 H MCH 32.0 MCHC 31.7 RDW 15.3 H Plt Count 353 MPV 8.6 L Immature Gran % 0.9 Seg Neutrophils % 66.8 Lymphocytes % 18.1 Monocytes % 9.6 Eosinophils % 3.9 Basophils % 0.7 Neutrophils # 6.1 Lymphocytes # 1.6 Monocytes # 0.9 Eosinophils # 0.4 Basophils # 0.1 Sodium 134 L Potassium 4.5 Chloride 95 L Carbon Dioxide 31 H BUN 48 H Creatinine 1.25 H Est GFR ( Amer) 49 L Est GFR (Non-Af Amer) 41 L BUN/Creatinine Ratio 38 H Glucose 154 H Calculated Osmolality 294 Calcium 8.9 - ABG Interpretation ABG results: PT/INR, D-dimer PT 11.7 Seconds (9.4-12.1) 05/12/19 15:47 Palliative Scale - Palliative Performance Scale How ambulatory is this patient?: Mainly sit / lie What is patient's level of activity and evidence of disease?: Unable hobby/housework, Significant disease How much self-care assistance does patient require?: Considerable assistance required How much oral intake does the patient have?: Normal or reduced What is this patient's level of consciousness?: Full Palliative Performance Score: 60 % Consult Discharge Plan - Plan Referrals: Naman Harper MD [Partnered Physician] - 05/19/19 1:30 pm
--- NOTE | 2019-05-17 16:32 | Internal Med Progress Note ---
Hospitalist Progress Note - Encounter Date of Encounter: 05/17/19 Time of Encounter: 08:55 - Subjective Interval History: Seen at [facility]. Eating breakfast comfortably. Complains of mild shortness of breath but doing fine on 3L of O2 with 95% saturations. Denies any chest pain, pressure, fever, chills.No other overnight evetns. Being worked up for the p lacement. - Exam Vitals: Temp Pulse Resp BP Pulse Ox 98.3 F 85 20 108/68 95 05/17/19 15:42 05/17/19 15:42 05/17/19 16:04 05/17/19 15:42 05/17/19 16:04 Exam: General: Alert and oriented, no physical distress, able to follow commands. Respiratory: Lungs clear to asuculation today. Respirations noramal and non alboured, on 3L of O2, saturations in 90s,,no additional breath sounds. CVS: Normal heart sounds, no murmurs, peripheral edema. Extremities: 2+ pitting lower extremity edema. Gastrointestinal: Soft, nontender abdomen, normal abdominal sounds. No distention noted. Neurological: Alert and oriented. No focal deficits. Cranial nerves II-XII intact. - Assessment and Plan (1) Acute respiratory failure with hypoxia Current Visit: Yes Status: Acute Assessment and Plan: -Etiolgoy likley secondary to PNA with probable fluid overload. -Echocardiogram showed EF 50-55%. Also has moderate pHTN with dilated/hypokinetic RV as well as mod-severe TR. -Was on BPAP previously but on xygen mask now, saturating in mid 90s on 3L -Was on lasix whihc was held due to worsenig kidney functions. -Nephrology on [place], appreciate recommendations. -continue IV Yeyo, day 05/28 (2) PAF (paroxysmal atrial fibrillation) Current Visit: Yes Status: Acute Assessment and Plan: -Hx of atrial fibrillation, was not on AC in the past. -HS been started on 2.5 mg eliquis PO BID -Pt is currently on aspirin and plavix for CAD, we will stop aspirin and continue plavix. -Cardiolgoy on [place], appreciate recommendations (3) NSTEMI (non-ST elevated myocardial infarction) Current Visit: Yes Status: Acute Assessment and Plan: -Troponin elevated at e time of admisison -ALso had wide complex tachycardia on the day of presentation requiring amiodarone -continue plavix, statin, bb -COnsdering comorbidites, and pt wishes, no plan for thr [facility]. -Cardiolgoy on board, appreicate recommendations (4) DVT prophylaxis Current Visit: Yes Status: Acute Assessment and Plan: -on eliquis (5) Acute kidney injury Current Visit: Yes Status: Acute Assessment and Plan: -Etiolgoy unclear. -Improving, Cr improved to 1.25 today -Acc to pt she is making good amount of urine, suspect charting is not right -Lasix on hold -Npehro on board -Will defer the lasix dosing to nephro (6) CAD (coronary artery disease) Current Visit: No Status: Chronic Assessment and Plan: -Continue home meds (7) Acute decompensated heart failure Current Visit: Yes Status: Acute Assessment and Plan: -Echo findings mentioned above -Was on lasix which was held 2/2 worsening Cr. -Pt is overall improving. -Diuretic maagement as per nephro - (8) Ventricular arrhythmia Current Visit: Yes Status: Acute Assessment and Plan: -Coudl be related to ischemia vs A. Fib with aberrancy -Trasnitionedto PO amiodarone, pt declining ischemic eval for now -Continue bb -Monitor electrolytes (9) Community acquired bacterial pneumonia Current Visit: Yes Status: Acute Assessment and Plan: -Cont ceftriaoxne 04/27 -Azithromycin has been discontinued (10) Constipation Current Visit: Yes Status: Acute Assessment and Plan: -Order miralax and senna -added milk of [place] today - Summary of Assessment and Plan Summary of Assessment and Plan: - anticiapte dischrge tomorrow -Medically stable to be dsichrged at this point. - Time Spent with Patient Total time spent is greater than 50% in coordination of care (as documented) at patient's floor/unit and/or counseling patient: Internal Medicine: Result - Labs CBC & Chem 7: 05/17/19 08:46 05/17/19 08:46 Labs: Short CBC 05/17/19 Range/Units 08:46 WBC 9.1 (4.3-11.1) K/mcL Hgb 10.6 L (11.5-15.4) g/dL Hct 33.4 L (35.3-44.9) % Plt Count 353 (140-400) K/mcL Neutrophils # 6.1 (1.6-8.9) K/mcL BMP 05/17/19 08:46 Sodium 134 L Potassium 4.5 Chloride 95 L Carbon Dioxide 31 H BUN 48 H Creatinine 1.25 H Glucose 154 H Calcium 8.9 - ABG Interpretation ABG results: PT/INR, D-dimer PT 11.7 Seconds (9.4-12.1) 05/12/19 15:47 - Impressions Impressions Chest X-Ray 05/17/19 08:43 IMPRESSION: Congestive heart failure. D/ / 05/17/2019 15:27:22 Kian Clifford MD / [place] Interpreting Provider: Kian Clifford MD Consult Discharge Plan - Plan Referrals: Naman Harper MD [Partnered Physician] - 05/19/19 1:30 pm _ (6) CAD (coronary artery disease) Qualifiers: Coronary Disease-Associated Artery/Lesion type: [place] artery [place] vs. transplanted heart: [place] heart Associated angina: with unstable angina Qualified Code(s): I25.110 - Atherosclerotic heart disease of [place] coronary artery with unstable angina pectoris (10) Constipation Qualifiers: Constipation type: slow transit constipation Qualified Code(s): K59.01 - Slow transit constipation
[2019-05-17] MEDS: *HR* HYDROcodone/Acet 5/325 mg TABLET PO SCH (17:19)
--- NOTE | 2019-05-17 18:10 | Nephrology Progress Note ---
Date of Encounter: 05/17/19 Time of Encounter: 12:00 - Assessment and Plan (1) Acute kidney injury Current Visit: Yes Status: Acute Scr continues to improve at 125, GFR 41 off diuretics and almost baseline UOP documented at 300cc in the past 24hrs, not accurate as pt6 reports more output Continue to avoid nephrotoxins if possible (2) Acute decompensated heart failure Current Visit: Yes Status: Acute Strict I/Os encouraged Can resume home po lasix 20mg daily back Counselled on low sodium diet Continue fluid restriction Compression stocking or LE wrapping advised (3) CKD (chronic kidney disease), stage III Current Visit: Yes Status: Acute Baseline CKD stage III noted on her labs. (4) Hypokalemia Current Visit: Yes Status: Acute S/p diuretics. Resolved (5) Hyponatremia Current Visit: Yes Status: Acute Stable at 134, will monitor Subjective Principal diagnosis: Short of breath, elevated troponin Interval history: Pt seen and examined feeling better overall and ready for discharge soon. Sitting up in chair today with a friend at bedside Objective - Vital Signs Vital signs: Vital Signs Temp Pulse Resp BP Pulse Ox 05/17/19 16:04 20 95 05/17/19 15:42 98.3 F 85 19 108/68 91 05/17/19 11:00 97.6 F 96 17 112/71 96 05/17/19 10:58 18 92 05/17/19 07:07 18 92 05/17/19 06:31 98.1 F 95 16 98/65 92 05/17/19 04:01 18 91 05/17/19 03:57 98.0 F 98 18 121/71 92 05/16/19 23:44 97.9 F 97 20 128/62 99 05/16/19 23:19 18 91 05/16/19 21:25 98 05/16/19 19:47 16 96 05/16/19 19:01 98.2 F 107 17 100/57 90 Intake and Output 05/17/19 05/17/19 05/17/19 07:59 15:59 23:59 Other: # Voids 1 1 - General Appearance General appearance: Present: chronically ill, frail EENT: Present: ATNC, mucous membranes moist Neck: Present: no JVD, supple Additional Comments: good areation ant bilat Cardiology: Present: edema (LE bilat), normal S1, normal S2 Gastrointestinal: Present: no tenderness, no guarding Integumentary: Present: warm and dry, hyperpigmentation, chronic venous stasis Neurologic: Present: no focal deficit Musculoskeletal: Present: no deformities Psychiatric: Present: mood/affect appropriate, cooperative - Lab 05/17/19 08:46 05/17/19 08:46 Most recent lab results 05/17/19 08:46 Calcium 8.9 Consult Discharge Plan - Plan Referrals: Naman Harper MD [Partnered Physician] - 05/19/19 1:30 pm
[2019-05-17] MEDS ORDERED: Furosemide 20 MG TABLET PO PRN (18:11)
[2019-05-17] MEDS: Famotidine 20 MG TABLET PO SCH (20:00)
[2019-05-18] MEDS: Ipratropium/Albuterol Neb 3 ML IH SCH ×4 (03:41→15:49)
[2019-05-18] MEDS: GuaiFENesin Liq 200 MG/10 ML UDC PO PRN (05:49)
[2019-05-18 06:59] LABS: Calcium 8.8 mg/dL (8.6-10.3); Potassium 4.8 mEq/L (3.5-5.1)
[2019-05-18] MEDS: *HR* HYDROcodone/Acet 5/325 mg TABLET PO SCH (08:25)
[2019-05-18] MEDS: *HR* Amiodarone 200 MG TABLET PO SCH (08:28)
[2019-05-18] MEDS: Apixaban 5 MG TABLET PO SCH (08:28)
[2019-05-18] MEDS: cefTRIAXone 1,000 MG in Water for inj. (sterile) 10 ML IVP SCH (08:29)
[2019-05-18] MEDS: Multivit/Ca/Min/Fe/FA 1 TAB TABLET PO SCH (08:31)
[2019-05-18] MEDS ORDERED: Lactulose Oral Soln 20 GM/30 ML UDC PO ONE (08:45)
[2019-05-18] MEDS ORDERED: MOM Conc 10 ML UD.LIQ PO SCH (09:00)
[2019-05-18] MEDS ORDERED: Sennosides 8.6 MG TABLET PO SCH (09:00)
--- NOTE | 2019-05-18 09:12 | Palliative Progress Note ---
Date of Encounter: 05/18/19 Time of Encounter: 08:45 - Assessment and plan (1) Pain Current Visit: Yes Status: Acute Assessment and plan: Patient with hx of Osteoarthritis. Had scheduled [place] around the clock for past 24 hrs for relief then high dose tylenol for relief. Patient actively participating in PT/OT. Awaiting bed at [facility] for rehab. Patient reports generalized stiffness in AM after being in bed all night. (2) Constipation Current Visit: Yes Status: Acute Assessment and plan: Patient with no BM x 6 days. Taking PO [place] for management of arthritis. Last documented BM on 05/12/19. Reports passing flatus. No impaction present. Plan: Has MOM, Senna and Miralax this AM Desires to use bedside commode Patient agree to plan. Monitor I&O Qualifiers: Constipation type: slow transit constipation Qualified Code(s): K59.01 - Slow transit constipation (3) Dyspnea Current Visit: No Status: Acute Assessment and plan: Patient tolerating NC at 3L with sats 92%. Alert, able to CBD. Plan: Supplemental O2 Bipap PRN HOB up CDB Qualifiers: Dyspnea type: unspecified Qualified Code(s): R06.00 - Dyspnea, unspecified (4) Goals of care, counseling/discussion Current Visit: Yes Status: Acute Assessment and plan: Awaiting insurance approval for ECF placement. Patient agree to POC. (5) Palliative care encounter Current Visit: Yes Status: Acute (6) NSTEMI (non-ST elevated myocardial infarction) Current Visit: Yes Status: Acute Assessment and plan: S/P NSTEMI. Patient not candidate for C based on desires and renal panel. (7) Acute respiratory failure with hypoxia Current Visit: Yes Status: Acute Assessment and plan: Tolerating NC 3L. (8) Acute decompensated heart failure Current Visit: Yes Status: Acute - Time Spent With Patient Total time spent is greater than 50% in coordination of care (as documented) at patient's floor/unit and/or counseling patient: - Subjective Interval history: Patient in bed. Alert, reports passing gas this AM. Student nurse at bedside. Patient requesting to get up to bedside commode. No BM reported. - Constitutional Vitals: Abnormal lab results WBC 13.1 K/mcL (4.3-11.1) H 05/09/19 05:26 RBC 3.31 M/mcL (3.82-4.97) L 05/17/19 08:46 Hgb 10.6 g/dL (11.5-15.4) L 05/17/19 08:46 Hct 33.4 % (35.3-44.9) L 05/17/19 08:46 MCV 100.9 fL (83.0-100.0) H 05/17/19 08:46 RDW 15.3 % (11.5-14.5) H 05/17/19 08:46 MPV 8.6 fL (9.4-12.4) L 05/17/19 08:46 Neutrophils # 10.0 K/mcL (1.6-8.9) H 05/09/19 05:26 Monocytes # 1.6 K/mcL (0.0-1.3) H 05/09/19 05:26 Eosinophils # 0.7 K/mcL (0.0-0.6) H 05/13/19 04:17 PT 12.6 Seconds (9.4-12.1) H 05/12/19 01:42 Heparin Anti-Xa, Unfract 0.71 IU/mL (0.30-0.70) H 05/13/19 17:12 Sodium 132 mEq/L (136-145) L 05/18/19 06:22 Potassium 3.2 mEq/L (3.5-5.1) L 05/10/19 05:12 Chloride 96 mEq/L (98-107) L 05/18/19 06:22 Carbon Dioxide 31 mEq/L (23-29) H 05/17/19 08:46 BUN 48 mg/dL (8-23) H 05/18/19 06:22 Creatinine 1.25 mg/dL (0.60-1.20) H 05/17/19 08:46 Est GFR ( Amer) 52 (> 60) L 05/18/19 06:22 Est GFR (Non-Af Amer) 43 (> 60) L 05/18/19 06:22 BUN/Creatinine Ratio 40 (6-26) H 05/18/19 06:22 Glucose 106 mg/dL (70-105) H 05/18/19 06:22 POC Glucose 109 mg/dL (70-99) H 05/10/19 23:47 Calculated Osmolality 315 (280-300) H 05/13/19 04:17 Uric Acid 13.9 mg/dL (2.3-7.6) H 05/11/19 04:24 Calcium 8.5 mg/dL (8.6-10.3) L 05/14/19 07:21 Phosphorus 4.8 mg/dL (2.7-4.5) H 05/10/19 05:12 Creatine Kinase 19 Units/L (30-223) L 05/11/19 04:24 Troponin I 0.15 ng/mL (< 0.04) H* 05/08/19 06:19 B-Natriuretic Peptide 955 pg/mL (Less than 100) H 05/08/19 03:50 Total Protein (PEP) 5.10 g/dL (6.00-8.30) L 05/11/19 04:24 Albumin (PEP) 2.54 g/dL (3.75-5.01) L 05/11/19 04:24 Procalcitonin 0.89 ng/mL (0.00-0.15) H 05/08/19 07:[address] LC, Quant 3.70 mg/dL (0.33-1.94) H 05/11/19 04:24 - Head Head exam: Present: atraumatic, normal inspection - Eye Eye exam: Present: PERRL - ENT ENT exam: Present: mucous membranes moist - Neck Neck exam: Present: normal inspection - Respiratory Respiratory exam: Present: decreased breath sounds - Expanded Respiratory Exam Location: decreased breath sounds: Left, Right, Lower - Cardiovascular Cardiovascular exam: Present: +S1, +S2 - GI/Abdominal GI/Abdominal exam: Present: normal bowel sounds, soft Additional comments: Passing flatus - Rectal Rectal exam: Present: normal inspection - Extremities Exam Extremities exam: Present: tenderness Additional comments: Patient c/o generalized joint pain from arthritis - Neurological Exam Neurological exam: Present: alert, oriented X3 - Psychiatric Psychiatric exam: Present: normal affect - Skin Skin exam: Present: pallor, warm Palliative Quality Palliative Quality: Screen for Code Status: Yes, Screen for Goals of Care: Yes, Screen for Pain: Yes, Screen for Nausea/Vomitting: Yes Code Status: 05/08/19 00:34 Resuscitation Status: Active [RES] Stat Comment: Resuscitation Status: Full Code - Labs CBC & Chem 7: 05/17/19 08:46 05/18/19 06:22 Labs: Laboratory Results - last 24 hr 05/17/19 05/17/19 05/18/19 08:46 08:46 06:22 WBC 9.1 RBC 3.31 L Hgb 10.6 L Hct 33.4 L MCV 100.9 H MCH 32.0 MCHC 31.7 RDW 15.3 H Plt Count 353 MPV 8.6 L Immature Gran % 0.9 Seg Neutrophils % 66.8 Lymphocytes % 18.1 Monocytes % 9.6 Eosinophils % 3.9 Basophils % 0.7 Neutrophils # 6.1 Lymphocytes # 1.6 Monocytes # 0.9 Eosinophils # 0.4 Basophils # 0.1 Sodium 134 L 132 L Potassium 4.5 4.8 Chloride 95 L 96 L Carbon Dioxide 31 H 29 BUN 48 H 48 H Creatinine 1.25 H 1.20 Est GFR ( Amer) 49 L 52 L Est GFR (Non-Af Amer) 41 L 43 L BUN/Creatinine Ratio 38 H 40 H Glucose 154 H 106 H Calculated Osmolality 294 287 Calcium 8.9 8.8 - Impressions Impressions Chest X-Ray 05/17/19 08:43 IMPRESSION: Congestive heart failure. D/ / 05/17/2019 15:27:22 Kian Clifford MD / [email or web address] Interpreting Provider: Kian Clifford MD - ABG Interpretation ABG results: PT/INR, D-dimer PT 11.7 Seconds (9.4-12.1) 05/12/19 15:47 Palliative Scale - Palliative Performance Scale How ambulatory is this patient?: Mainly sit / lie What is patient's level of activity and evidence of disease?: Unable hobby/housework, Significant disease How much self-care assistance does patient require?: Considerable assistance required How much oral intake does the patient have?: Normal or reduced What is this patient's level of consciousness?: Full Palliative Performance Score: 60 % Consult Discharge Plan - Plan Referrals: Naman Harper MD [Partnered Physician] - 05/19/19 1:30 pm
[2019-05-18] MEDS ORDERED: Furosemide 20 MG TABLET PO SCH (09:30)
[2019-05-18 11:30] VITALS: BP 109/72
--- NOTE | 2019-05-18 15:35 | Discharge Summary ---
- NOTES TO OUTPATIENT PROVIDER Notes to Outpatient Provider: Patient is a 88-year-old female with past medical history of CHF was admitted to the hospital due to non-ST elevation PA, decompensated heart failure, and pneumonia. Patient required continuous BiPAP initially and then was transferred to high flow oxygen through nasal cannula. Patient was discharged to assisted facility. PCP needs to follow-up after discharge from assisted facility. Estimated PT Needs at Discharge: SNF/ECF Date of Encounter: 05/18/19 Time of Encounter: 15:33 - Discharge Diagnosis (1) NSTEMI (non-ST elevated myocardial infarction) Priority: Primary Status: Acute (2) CAD (coronary artery disease) Priority: Secondary Status: Chronic Qualifiers: Coronary Disease-Associated Artery/Lesion type: [place] artery [place] vs. transplanted heart: [place] heart Associated angina: with unstable angina Qualified Code(s): I25.110 - Atherosclerotic heart disease of [place] coronary artery with unstable angina pectoris (3) PAF (paroxysmal atrial fibrillation) Priority: Secondary Status: Acute (4) Acute kidney injury Priority: Secondary Status: Acute (5) Acute respiratory failure with hypoxia Priority: Secondary Status: Acute (6) Acute decompensated heart failure Priority: Secondary Status: Acute (7) Ventricular arrhythmia Priority: Secondary Status: Acute (8) Community acquired bacterial pneumonia Priority: Secondary Status: Acute (9) Constipation Priority: Secondary Status: Chronic Qualifiers: Constipation type: slow transit constipation Qualified Code(s): K59.01 - Slow transit constipation (10) DVT prophylaxis Priority: Secondary Status: Chronic Hospital course: Ms. Tavera is a 88 year old female presented to hospital with complaint of acute hypoxic failure and actively bleeding secondary to decompensated heart failure, non-ST recent PA and pneumonia. Patient initially required continuous BiPAP and also required nitroglycerin drip. She also required IV antibiotic. Patient finished antibiotic during her stay at the hospital. Patient also noted to have a wide-complex tachycardia on admission and was restarted on amiodarone. Patient has a bilateral swelling and she is currently taking Lasix 20 mg by mouth daily after talking to nephrology. Patient recovered well and discharged in fairly stable condition to the assisted facility. Patient is to follow up with primary care provider after she had discharge from assisted facility. Discharge discussed with: patient, family, nurse, social work, case management - Time Spent with Patient Total time spent providing and/or coordinating discharge services: 40 Time spent: Greater than 30 minutes - Discharge Medications Prescriptions: New Amiodarone [Cordarone] 400 mg PO BID tablet Ipratropium/Albuterol Neb [Duoneb] 3 ml IH [id number] inhsol Apixaban [Eliquis] 5 mg PO BID tablet Acetaminophen [Tylenol] 1,000 mg PO Q8HR tablet Methyl Salicylate/Menthol [Bengay] 1 appl TP BID PRN tube PRN Reason: pain GuaiFENesin Liq [Robitussin Liq] 200 mg PO Q6HR PRN udc PRN Reason: Cough Multivit/Ca/Min/Fe/FA [Thera M Plus] 1 tab PO DAILY tablet Continued Isosorbide MONOnitrate (24 HR) [Imdur] 30 mg PO DAILY Lisinopril/Hydrochlorothiazide [Zestoretic 20-25 mg Tablet] 1 tab PO DAILY Levothyroxine Sodium [Euthyrox] 125 mcg PO QAM Furosemide [Lasix] 20 mg PO DAILY Famotidine [Pepcid] 20 mg PO BID Clopidogrel [Plavix] 75 mg PO DAILY Atorvastatin Calcium [Lipitor] 20 mg PO QPM Atenolol [Tenormin] 150 mg PO DAILY HYDROcodone/Acet 5/325 mg [Delta 5-325 mg] 1 tab PO TID PRN 7 Days #21 tablet PRN Reason: Pain Discontinued Ondansetron HCl 4 mg PO Q8H PRN PRN Reason: Nausea Home Medications: Atenolol [Tenormin] 150 mg PO DAILY 05/10/19 [History] Atorvastatin Calcium [Lipitor] 20 mg PO QPM 05/10/19 [History] Clopidogrel [Plavix] 75 mg PO DAILY 05/10/19 [History] Famotidine [Pepcid] 20 mg PO BID 05/10/19 [History] Furosemide [Lasix] 20 mg PO DAILY 05/10/19 [History] Isosorbide MONOnitrate (24 HR) [Imdur] 30 mg PO DAILY 05/10/19 [History] Levothyroxine Sodium [Euthyrox] 125 mcg PO QAM 05/10/19 [History] Lisinopril/Hydrochlorothiazide [Zestoretic 20-25 mg Tablet] 1 tab PO DAILY 05/10/19 [History] Acetaminophen [Tylenol] 1,000 mg PO Q8HR tablet 05/18/19 [Rx] Amiodarone [Cordarone] 400 mg PO BID tablet 05/18/19 [Rx] Apixaban [Eliquis] 5 mg PO BID tablet 05/18/19 [Rx] GuaiFENesin Liq [Robitussin Liq] 200 mg PO Q6HR PRN udc 05/18/19 [Rx] HYDROcodone/Acet 5/325 mg [Delta 5-325 mg] 1 tab PO TID PRN 7 Days #21 tablet 05/18/19 [Rx] Ipratropium/Albuterol Neb [Duoneb] 3 ml IH [id number] inhsol 05/18/19 [Rx] Methyl Salicylate/Menthol [Bengay] 1 appl TP BID PRN tube 05/18/19 [Rx] Multivit/Ca/Min/Fe/FA [Thera M Plus] 1 tab PO DAILY tablet 05/18/19 [Rx] Allergies/Adverse Reactions: Allergy/AdvReac Type Severity Reaction Status Date / Time tramadol Allergy Hives Verified 01/20/18 04:11 Date of admission: 05/08/19 01:50 Primary care physician: PCP NONE Consults: 05/08/19 03:43 Consult to Cardiology [CONS] Routine Comment: ED spoke with Dr. Montenegro Consulting Provider: Cardiology Sonya Reason for Consult: sustained wide complex tachycardia, on amio/heparin, elevated trop, h/o CAD s/p stenting and PAF Call Completed: Yes 05/08/19 06:06 Consult to Pulmonology [CONS] Routine Consulting Provider: Pulm Crit Care & Sleep Sonya Reason for Consult: sustained Vtach on Amio drip, concern for instability Call Completed: Yes 05/08/19 08:39 Consult to Palliative Care [CONS] Routine Comment: Consulting Provider: Palliative Care Sonya Reason for Consult: goals of care Call Completed: No 05/10/19 12:05 Consult to Nephrology [CONS] Routine Consulting Provider: Kidney Sonya/RADHA/INGE/JULEE Reason for Consult: acute on chronic kidney failure, was being diuresed for hypoxic respiratory failure that was attributed to CHF Call Completed: Yes 05/11/19 18:27 Consult to Occupational Therapy [CONS] Routine Comment: Evaluate, develop and implement POC Reason for Consult: weakness Does patient have active BEDREST order?: No Is patient medically & hemodynamically stable?: Yes 05/11/19 18:28 Consult to Physical Therapy [CONS] Routine Comment: Evaluate, develop and implement POC Reason for Consult: weakness Does patient have active BEDREST order?: Yes Is patient medically & hemodynamically stable?: Yes 05/16/19 09:23 Consult to Watch Electrician [CONS] Routine Reason for SW Consult: needs ecf 05/17/19 08:15 Consult to Nurse Navigator [CONS] Routine Comment: chf Discharging clinician: Biju Cash - Constitutional Vitals: Temp Pulse Resp BP Pulse Ox 97.4 F L 88 18 109/72 90 05/18/19 11:29 05/18/19 11:29 05/18/19 11:29 05/18/19 11:29 05/18/19 11:29 General appearance: Present: cooperative, mild distress, A&O X 3 Exam: General: Alert and oriented, no physical distress, able to follow commands. Respiratory: Lungs clear to asuculation today. Respirations noramal and non alboured, on 3L of O2, saturations in 90s,,no additional breath sounds. CVS: Normal heart sounds, no murmurs, peripheral edema. Extremities: 2+ pitting lower extremity edema. Gastrointestinal: Soft, nontender abdomen, normal abdominal sounds. No distent ion noted. Neurological: Alert and oriented. No focal deficits. Cranial nerves II-XII intact. - Head Head exam: Present: atraumatic - Eye Eye exam: Present: PERRL - Neck Neck exam general surgery: Present: full ROM - Respiratory Respiratory exam: Present: CTAB. Absent: accessory muscle use, rales, rhonchi, wheezes - Cardiovascular Cardiovascular exam: Present: RRR, +S1, +S2. Absent: diastolic murmur, gallop, rubs, systolic murmur - GI/Abdominal GI/Abdominal exam: Present: normal bowel sounds, soft, no peritoneal signs. Absent: distended, tenderness - Extremities Exam Extremities exam: Present: warm, radial pulses palpable and symmetrical. Absent: calf tenderness, cyanotic, pedal edema - Patient Status Disposition: Transfer SNF Condition: Good Functional capacity at discharge: uses cane/walker Overall status at discharge: patient is progressing back to baseline - Discharge Instructions Follow Up With: Naman Harper MD [Partnered Physician] - 05/19/19 1:30 pm Forms: ED Satisfaction Letter - Diet and Activity Activity: ambulate only with your walker, as per physical therapy, wear oxygen at all times Diet: advance to your usual diet
--- NOTE | 2019-05-18 15:54 | Physician Discharge Referral ---
ExtendedCare Referral Info Transfer To: SNF - Diagnosis (1) NSTEMI (non-ST elevated myocardial infarction) Status: Acute (2) CAD (coronary artery disease) Priority: Secondary Status: Chronic (3) PAF (paroxysmal atrial fibrillation) Status: Acute (4) Acute kidney injury Priority: Secondary Status: Acute (5) Acute respiratory failure with hypoxia Priority: Secondary Status: Acute (6) Acute decompensated heart failure Priority: Secondary Status: Acute (7) Ventricular arrhythmia Priority: Secondary Status: Acute (8) Community acquired bacterial pneumonia Priority: Secondary Status: Acute (9) Constipation Priority: Secondary Status: Chronic (10) DVT prophylaxis Priority: Secondary Status: Chronic - Transfer Medications Prescriptions: HYDROcodone/Acet 5/325 mg [[place] 5-325 mg] 1 tab PO TID PRN 7 Days #21 tablet PRN Reason: Pain Home Medications: Atenolol [Tenormin] 150 mg PO DAILY 05/10/19 [History] Atorvastatin Calcium [Lipitor] 20 mg PO QPM 05/10/19 [History] Clopidogrel [Plavix] 75 mg PO DAILY 05/10/19 [History] Famotidine [Pepcid] 20 mg PO BID 05/10/19 [History] Furosemide [Lasix] 20 mg PO DAILY 05/10/19 [History] Isosorbide MONOnitrate (24 HR) [Imdur] 30 mg PO DAILY 05/10/19 [History] Levothyroxine Sodium [Euthyrox] 125 mcg PO QAM 05/10/19 [History] Lisinopril/Hydrochlorothiazide [Zestoretic 20-25 mg Tablet] 1 tab PO DAILY 05/10/19 [History] Acetaminophen [Tylenol] 1,000 mg PO Q8HR tablet 05/18/19 [Rx] Amiodarone [Cordarone] 400 mg PO BID tablet 05/18/19 [Rx] Apixaban [Eliquis] 5 mg PO BID tablet 05/18/19 [Rx] GuaiFENesin Liq [Robitussin Liq] 200 mg PO Q6HR PRN udc 05/18/19 [Rx] HYDROcodone/Acet 5/325 mg [[place] 5-325 mg] 1 tab PO TID PRN 7 Days #21 tablet 05/18/19 [Rx] Ipratropium/Albuterol Neb [Duoneb] 3 ml IH [id number] inhsol 05/18/19 [Rx] Methyl Salicylate/Menthol [Bengay] 1 appl TP BID PRN tube 05/18/19 [Rx] Multivit/Ca/Min/Fe/FA [Thera M Plus] 1 tab PO DAILY tablet 05/18/19 [Rx] Allergies/Adverse Reactions: Allergy/AdvReac Type Severity Reaction Status Date / Time tramadol Allergy Hives Verified 01/20/18 04:11 - Respiratory Orders Oxygen / L per min (2L / min) Smoking Cessation: Smoking cessation has been advised. For more information, call the [employer] Quit Line at 5-313-OJQI-NOW. - Ancillary Orders May use pressure relief devices daily prn - Advance Directives Code Status: Full Code - Mobility Orders Ambulate - Rehabiliation Orders Rehab Potential: Fair Rehab Orders: Evaluation for Physical Therapy, Evaluation for Occupational Therapy CERTIFICATION: I certify that the transfer of the above named patient to an Extended Care Facility is necessary for the continuing treatment of the diagnosis listed. The above information is true and accurate reflection of patient's current condition. Confidential - Redisclosure prohibited without a patient's written consent.
[2019-05-18] MEDS ORDERED: *HR* HYDROcodone/Acet 5/325 mg TABLET PO PRN (16:00)
--- NOTE | 2019-05-18 16:49 | Nephrology Progress Note ---
Date of Encounter: 05/18/19 Time of Encounter: 12:00 - Assessment and Plan (1) Acute kidney injury Current Visit: Yes Status: Acute Scr continues to improve at 1.2, GFR 43 almost baseline UOP not documented in the past 24hrs Continue to avoid nephrotoxins if possible (2) Acute decompensated heart failure Current Visit: Yes Status: Acute Strict I/Os encouraged back on home po lasix 20mg daily back Counselled on low sodium diet Continue fluid restriction Compression stocking or LE wrapping advised (3) CKD (chronic kidney disease), stage III Current Visit: Yes Status: Acute Baseline CKD stage III noted on her labs. (4) Hyponatremia Current Visit: Yes Status: Acute Stable at 132, will monitor Subjective Principal diagnosis: Short of breath, elevated troponin Interval history: Pt seen and examined eager for discharge soon. Sitting up in bed today with friends at bedside Objective - Vital Signs Vital signs: Vital Signs Temp Pulse Resp BP Pulse Ox 05/18/19 15:50 18 92 05/18/19 11:29 97.4 F L 88 18 109/72 90 05/18/19 07:06 98.0 F 99 18 115/65 94 05/18/19 04:00 97.8 F 89 18 118/73 94 05/18/19 03:41 18 90 05/17/19 23:58 97.9 F 99 17 114/67 94 05/17/19 23:10 16 93 05/17/19 20:06 94 05/17/19 19:45 16 94 05/17/19 19:08 98 F 103 16 117/75 90 Intake and Output 05/18/19 05/18/19 05/18/19 07:59 15:59 23:59 Intake Total 300 / 660 360 / 660 Balance 300 / 660 360 / 660 Intake: Oral 300 / 660 360 / 660 Other: Meal Breakfast Percent of Meal Consumed 0% Stool Size Moderate Stool Consistency loose liquid Stool Color Brown Blood Tinged # Voids 1 # Urine Diapers 1 # Bowel Movements 1 - General Appearance General appearance: Present: chronically ill (NAD) EENT: Present: ATNC, mucous membranes moist Neck: Present: no JVD, supple Respiratory: Present: clear Cardiology: Present: edema (LE bilat), normal S1, normal S2 Gastrointestinal: Present: no tenderness, no guarding Integumentary: Present: hyperpigmentation, chronic venous stasis Neurologic: Present: no focal deficit Musculoskeletal: Present: no deformities Psychiatric: Present: mood/affect appropriate, cooperative - Lab 05/17/19 08:46 05/18/19 06:22 Most recent lab results 05/18/19 06:22 Calcium 8.8 Consult Discharge Plan - Plan Referrals: Naman Harper MD [Partnered Physician] - 05/19/19 1:30 pm Prescriptions: HYDROcodone/Acet 5/325 mg [[place] 5-325 mg] 1 tab PO TID PRN 7 Days #21 tablet PRN Reason: Pain
== END 2019-05-18 17:30 | DRG 280 ==
LOC: EMEROOARM 22:57 → SUATTDRO 05-08 01:50 → ICNU 05-08 01:50 → 2NNU 05-11 08:03 → 2ANU 05-13 21:34
PROVIDERS: ADMIT Internal Medicine; ATTEND Family Medicine